=== PATIENT | female | born 1945 | race Caucasian/White ===

== ENCOUNTER 2017-01-13 05:38 | Inpatient (IN) | payer MEDICARE ==
[2017-01-13] VITALS (9 sets, daily range): BP systolic 94–177; BP diastolic 49–76
[~2017-01-13] VITALS: Ht 154.9 cm; Wt 61.7 kg
[~2017-01-13 05:38] MED LIST: ASPI81TA2 PO; BUDE10.2 IH; CETI10TA22 PO; FLUT1DIS3 IH; GUAI12003 PO; IPRA3AMP23 IH; IPRA4AER IH; ISOS60TA2 PO; LEVO500T8 PO; LOSA100T6 PO; METO-269 PO; METO25TA4 PO; NITR0.4T SL; OMEG1CAP16 PO; ONDA-35 PO; PRED-220 PO; ROFL500T PO; SENN8.8S4 PO; SIMV40TA3 PO; ZOLP10TA4 PO
[2017-01-13] MEDS ORDERED: TOBRAMYCIN PER PHARMACY MC PRN (05:45)
[2017-01-13] MEDS ORDERED: PIP/TAZO PER PHARMACY MC PRN (05:45)
[2017-01-13] MEDS ORDERED: PIPERACILLIN/TAZOBACTAM 3.375 GM in IV NORMAL SALINE 50ML 50 ML IV ONE (06:00)
[2017-01-13] MEDS ORDERED: methylPREDNISolone SOD SUCC PF 125 MG/2 ML VIAL. IV ONE (06:00)
[2017-01-13] MEDS ORDERED: ACETAMINOPHEN 500 MG TABLET PO ONE (06:00)
[2017-01-13] MEDS ORDERED: ONDANSETRON PF 4 MG/2 ML VIAL. IV ONE (06:00)
[2017-01-13] MEDS ORDERED: ADENOSINE 6 MG/2 ML VIAL IV ONE (06:00)
[2017-01-13] MEDS ORDERED: KETOROLAC 15 MG/ML VIAL. IV ONE (06:00)
[2017-01-13] MEDS ORDERED: IV NORMAL SALINE 1000ML BAG 1,000 ML IV SCH (06:06)
[2017-01-13 06:14] LABS: BASO % 0 % (0-3); EOS % 0 % (0-3); HEMATOCRIT 38.1 % (36.0-47.0); HEMOGLOBIN 12.4 g/dL (12.0-15.5); LYMPH # 1.4 x10^3/uL (1.0-4.8); LYMPH % 8 % (24-48); MEAN CORPUSCULAR HEMOGLOBIN 28 pg (25-35); MEAN CORPUSCULAR HGB CONC 33 g/dL (31-37); MEAN CORPUSCULAR VOLUME 86 fL (79-100); MONO % 14 % (0-9); NEUT % 77 % (31-73); PLATELET COUNT 382 x10^3/uL (140-400); RED BLOOD COUNT 4.42 x10^6/uL (3.50-5.40); RED CELL DISTRIBUTION WIDTH 14.6 % (11.5-14.5); WHITE BLOOD COUNT 16.9 x10^3/uL (4.0-11.0)
[2017-01-13] MEDS ORDERED: MORPHINE SULFATE 2 MG/ML DISP.SYRIN. IV PRN (06:15)
[2017-01-13] MEDS ORDERED: ACETAMINOPHEN 325 MG TABLET. PO PRN (06:15)
[2017-01-13] MEDS ORDERED: ONDANSETRON PF 4 MG/2 ML VIAL. IV PRN (06:15)
--- NOTE | 2017-01-13 06:18 | PHYS DOC ---
Past Medical History Past Medical History: CHF, COPD, High Cholesterol, Hypertension Past Surgical History: No Surgical History Alcohol Use: Occasionally Drug Use: None Adult General Chief Complaint Chief Complaint: SHORTNESS OF BREATH HPI HPI History and physical exam are certainly limited secondary to the patient in respiratory distress and placed immediately on BiPAP upon arrival to the ER. Patient is a 71 year old female with history significant for COPD presents to the ER today complaining of shortness of breath as been progressing over the last 24-48 hours. Patient reports she's had tactile fevers and diaphoresis. Patient reports she's been coughing yellow to green productive sputum 1-2 days. Patient reports that she took some prednisone and some old antibiotics at home. Patient has any nausea or vomiting. Patient has any diarrhea. Patient denies any abdominal pain. Patient complains of pleuritic chest pain with inspiration with cough.Patient arrived by EMS on 100% nonrebreather. Patient's pulse ox quickly deteriorated into the low 80s(83-86%) when the oxygen was removed briefly. Patient was initially placed on BiPAP to assist with her respiratory failure. Patient is extremity, warm to touch, febrile to 101.7, tachypnea, unable to speak in full sentences. Patient is sitting in tripod position despite being on BiPAP.Patient's chest x-ray did not show any discrete infiltrate however there is a questionable early pneumonia left lower lobe. Influenza test was sent on patient. Patient's physical exam was significant for diffuse inspiratory and expiratory wheezing with diminished breath sounds in the bases. Patient's heart rate is tachycardic to 160-180. Patient's hospital course was significant for being placed on BiPAP upon arrival. Patient's chest x-ray was obtained which showed a possible left lower lobe infiltrate. Patient's labs were drawn and sent including blood cultures, influenza test, CBC, CMP, and troponin. A blood gas was also ordered. Patient was started empirically on antibiotics to cover for pneumonia. Patient was given Solu-Medrol 125 IV. Patient's heart rate was approximately 170 upon arrival to the ER and was given adenosine 6 mg and adenosine 12 mg without any resolution in her tachycardia. Patient's heart rate did slow down briefly and there were no flutter waves identified. I believe the patient's tachycardia is most likely secondary to sinus tachycardia secondary to COPD with respiratory failure, respiratory distress, fever, anxiety, and multiple doses of albuterol that she received. Patient was given Tylenol and an order of Toradol was ordered to assist with breathing down her heart rate. Patient was started on saline solution and the ER again to assist with helping to bring down her heart rate. She'll be admitted to the ICU under the care of Dr. Everett. I discussed the case with Dr. Dawn. Critical care time 35 minutes reutilized treatment and management of this patient's care. Review of Systems Review of Systems Constitutional: fever Eyes: Denies change in visual acuity, redness, or eye pain [] Current Medications Current Medications Current Medications Medications (Trade) Dose Ordered Sig/Home Start Time Stop Time Status Last Admin Dose Admin Acetaminophen (Tylenol) 1,000 mg 1X ONCE 01/13/17 06:00 01/13/17 06:01 DC Adenosine (Adenocard) 6 mg 1X ONCE 01/13/17 06:00 01/13/17 06:01 DC 01/13/17 06:05 6 MG Ketorolac Tromethamine (Toradol) 15 mg 1X ONCE 01/13/17 06:00 01/13/17 06:01 DC Methylprednisolone Sodium Succinate 125 mg 125 mg 1X ONCE 01/13/17 06:00 01/13/17 06:01 DC Ondansetron HCl (Zofran) 4 mg 1X ONCE 01/13/17 06:00 01/13/17 06:01 DC Piperacillin Sod/ Tazobactam Sod (Zosyn Per Pharmacy) 1 each PRN DAILY PRN 01/13/17 05:45 Piperacillin Sod/ Tazobactam Sod/ Sodium Chloride (Zosyn/Iv Sodium Chloride 0.9% 50ml) 50 ml @ 100 mls/hr 1X ONCE 01/13/17 06:00 01/13/17 06:29 Tobramycin Sulfate (Nebcin Per Pharmacy) 1 each PRN DAILY PRN 01/13/17 05:45 Vancomycin HCl (Vanco Per Pharmacy) 1 each PRN DAILY PRN 01/13/17 05:45 Vancomycin HCl 1.5 gm/Sodium Chloride 500 ml @ 250 mls/hr 1X ONCE 01/13/17 06:30 01/13/17 08:29 Allergies Allergies Allergies Coded Allergies Type Severity Reaction Last Updated Verified No Known Drug Allergies 02/17/16 No Physical Exam Physical Exam Constitutional: Well developed, well nourished severe respiratory distress. HENT: Normocephalic, atraumatic, bilateral external ears normal, oropharynx moist, no oral exudates, nose normal. [] Eyes: PERRLA, EOMI, conjunctiva normal, no discharge. [] Neck: Normal range of motion, no tenderness, supple, no stridor. [] Cardiovascular: Regular and tachycardic to 170. Lungs & Thorax: Diffuse inspiratory and expiratory wheezing. Using accessory muscles. No nasal flaring. Tripod position. Abdomen: Bowel sounds normal, soft, no tenderness, no masses, no pulsatile masses. [] Skin: Warm, dry, no erythema, no rash. [] Back: No tenderness, no CVA tenderness. [] Extremities: No tenderness, no cyanosis, no clubbing, ROM intact, no edema. [] Neurologic: Alert and oriented X 3, normal motor function, normal sensory function, no focal deficits noted. [] Psychologic: Affect normal, judgement normal, mood normal. [] Current Patient Data Vital Signs Vital Signs Date Time Temp Pulse Resp B/P Pulse Ox O2 Delivery O2 Flow Rate FiO2 01/13/17 05:54 95 BiPAP/CPAP EKG EKG EKG reveals sinus tach at 170. No STEMI. [] Radiology/Procedures Radiology/Procedures [] Course & Med Decision Making Course & Med Decision Making Pertinent Labs and Imaging studies reviewed. (See chart for details) [] Dragon Disclaimer Dragon Disclaimer This electronic medical record was generated, in whole or in part, using a voice recognition dictation system. Departure Departure Impression: Primary Impression: Acute respiratory distress Additional Impressions: COPD exacerbation Pneumonia Sepsis Disposition: 09 ADMITTED INPATIENT Admitting Physician: Helen Welsh Condition: CRITICAL Referrals: HELEN WELSH MD (PCP) Problem Qualifiers FRED FRANCISCO MD Jan 13, 2017 06:18
[2017-01-13] MEDS ORDERED: VANCOMYCIN 1.5 GM in IV NORMAL SALINE 500ML BAG 500 ML IV ONE (06:30)
[2017-01-13 06:51] LABS: ALBUMIN 3.3 g/dL (3.4-5.0); ALBUMIN/GLOBULIN RATIO 0.8 (1.0-1.7); CALCIUM 9.2 mg/dL (8.5-10.1); CREATININE 0.9 mg/dL (0.6-1.0); GFR 62.1; POTASSIUM 3.6 mmol/L (3.5-5.1); TOTAL BILIRUBIN 0.3 mg/dL (0.2-1.0); TOTAL PROTEIN 7.5 g/dL (6.4-8.2)
--- NOTE | 2017-01-13 07:10 | ACF ---
Admit Criteria Forms Admit Criteria Forms Admit Criteria Forms RESPIRATORY FAILURE GRG Clinical Indications for Admission to Inpatient Care (Place 'X' for any and all applicable criteria): Hospital admission is needed for appropriate care of the patient because of acute respiratory failure or insufficiency as indicated by ANY ONE of the following(1)(2)(3)(4)(5)(6)(7)(8): [X]I. Mechanical ventilation needed (acute invasive or noninvasive) [ ]II. Severe ventilation deficit as indicated by ANY ONE of the following (9) [ ]a) Respiratory acidosis (pH less than 7.32 and partial pressure of carbon dioxide greater than 40 mm Hg (5.3 kPa)) [ ]b) Partial pressure of carbon dioxide greater than 44 mm Hg (5.9 kPa ) (new) [ ]c) Airflow measurements less than 25% of predicted (eg, peak expiratory flow rate less than 100 L/minute) [ ]d) Forced vital capacity less than 15 mL/kg of ideal body weight, or 50% decrease in vital capacity from baseline [ ]III. Noncardiac pulmonary edema not resolving with rapid emergency treatment (8) [ ]IV. Severe respiratory distress as indicated by ANY ONE of the following: [ ]a) Severe tachypnea (respiratory rate greater than 30, greater than 45 for 6-month-old, greater than 60 for ) [ ]b) Severe hypoxemia (partial pressure of oxygen less than 50 mm Hg ( 6.7 kPa) on greater than 50% oxygen or partial pressure of oxygen to FIO2 ratio less than 200) [ ]c) Mental status deterioration from respiratory disease [ ]V. Airway obstruction or inadequate protection [A](10)(11) The original [employer] content created by [employer] has been revised. The portions of the content which have been revised are identified through the use of italic text or in bold, and [employer] has neither reviewed nor approved the modified material. All other unmodified content is copyright [employer]. Please see references footnoted in the original [employer] edition 2016 CARO STEWART Jan 13, 2017 07:10
[2017-01-13 07:22] LABS: OBC FLU VALID
[2017-01-13 07:30] LABS: HCO3 ABG 20 mmol/L (21-28); PCO2 ABG 32 mmHg (35-46); PH ABG 7.42 (7.35-7.45); PO2 ABG 71 mmHg (65-108); SAT O2 ABG 94 % (92-99)
--- NOTE | 2017-01-13 07:31 | RAD ---
Examination: Single portable chest History: History of cough, shortness of breath. Comparison: 11/15/2016 Findings: The cardiomediastinal silhouette grossly appears unremarkable. Mild prominence of bilateral interstitial lung markings identified likely mild congestive disease. Linear atelectasis identified in the bilateral apical lung regions. Impression: Mild prominent appearing bilateral interstitial lung markings probably mild congestive changes.
[2017-01-13 07:38] LABS: FIO2 ABG 35
[2017-01-13 07:40] LABS: PLT ESTIMATE ADEQUATE (ADEQUATE); POLYCHROMASIA SLIGHT
[2017-01-13] MEDS ORDERED: IPRATRPIUM/ALBUTEROL 0.5/2.5MG 3 ML NEBU. NEB SCH (08:00)
[2017-01-13] MEDS ORDERED: GUAI-42 PO (08:12)
[2017-01-13] MEDS ORDERED: OMEG1CAP6 PO (08:12)
[2017-01-13] MEDS ORDERED: CLAR500T PO (08:12)
[2017-01-13] MEDS ORDERED: NITROGLYCERIN SUBLINGUAL 0.4 MG BOTTLE OF 25. SL PRN (08:45)
[2017-01-13] MEDS ORDERED: FAMOTIDINE 20 MG/2 ML VIAL IVP SCH ×2 (09:00→09:30)
[2017-01-13] MEDS: IPRATRPIUM/ALBUTEROL 0.5/2.5MG 3 ML NEBU. IH SCH ×4 (09:00→19:34)
--- NOTE | 2017-01-13 09:05 | PDOC ---
Provider Note Provider Note [id number] TOM OCONNOR MD Jan 13, 2017 09:05
[2017-01-13] MEDS: VANCOMYCIN PER PHARMACY MC PRN (09:15)
[2017-01-13] MEDS: methylPREDNISolone SOD SUCC PF 125 MG/2 ML VIAL. IV SCH ×2 (09:26→21:40)
[2017-01-13] MEDS: METOPROLOL TART IMMED RELEASE 25 MG TABLET PO SCH ×2 (09:26→21:38)
[2017-01-13] MEDS: ISOSORBIDE MONONITRATE ER 60 MG TAB.ER.24H PO SCH (09:27)
[2017-01-13 09:40] LABS: BILIRUBIN,URINE NEGATIVE (NEG); GLUCOSE,URINE NEGATIVE (NEG); NITRITE,URINE NEGATIVE (NEG); PROTEIN,URINE 30 mg/dL (NEG-TRACE); UROBILINOGEN,URINE 0.2 mg/dL (0.2 mg/dL)
--- NOTE | 2017-01-13 09:40 | EKG ---
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
[2017-01-13 09:53] LABS: BACTERIA,URINE MANY /HPF (0-FEW); SQUAMOUS EPITHELIAL CELL,UR MOD /LPF
[2017-01-13] MEDS: PIPERACILLIN/TAZOBACTAM 3.375 GM in IV NORMAL SALINE 50ML 50 ML IV SCH ×2 (11:29→17:40)
--- NOTE | 2017-01-13 12:19 | HP ---
ADMIT DATE: CHIEF COMPLAINT: Shortness of breath. HISTORY OF PRESENT ILLNESS: A 71-year-old white female with history of COPD who was in the hospital 2 months ago for exacerbation and recently has been coughing up green sputum and more short of breath and came to the ER. She was on BiPAP recently but blood gases did not demonstrate respiratory acidosis. She is feeling a little better at this time. She denies antibiotic use recently. PAST MEDICAL HISTORY: Well documented in the old record. Echocardiogram 1 year ago, which showed a normal ejection fraction with pulmonary hypertension. Multiple meds listed per the chart. Vaccinations up-to-date to her knowledge. SOCIAL HISTORY: Still smokes cigarettes, and lives at home. Nondrinker, nonsmoker. FAMILY HISTORY: Unremarkable. REVIEW OF SYSTEMS: No other complaints. OBJECTIVE: ENT: All within normal limits. Mild proptosis is noted. NECK: Revealed no carotid bruits, thyromegaly or masses. LUNGS: Decreased breath sounds with inspiratory crackles bilaterally and a few wheezes. CARDIOVASCULAR: Tachycardia, rate about 140, regular, appears to be sinus tachycardia per monitor. ABDOMEN: Soft, benign and nontender. EXTREMITIES: 2+ clubbing, no edema. No joint or skin lesions. Distal pulses are mildly diminished. NEUROLOGIC: Physiologic. ASSESSMENT: 1. Acute exacerbation what appears to be moderately severe chronic obstructive pulmonary disease. 2. Chronic tobacco abuse. 3. Tachycardia, suspect multifactorial. Need to check TSH. PLAN: We will cover for pseudomonas and MRSA with vancomycin and Zosyn for now. Pulmonary consultation as she sees Dr. Smith as an outpatient, IV steroids and Pepcid for prophylaxis. TOM OCONNOR MD DR: HUBER/lazaro JOB#: [id number] / [id number]
[2017-01-13] MEDS ORDERED: FUROSEMIDE 40 MG/4 ML VIAL IVP ONE (12:30)
--- NOTE | 2017-01-13 12:30 | PDOC ---
PULMONARY PROGRESS NOTES Vitals Vital Signs Date Time Temp Pulse Resp B/P Pulse Ox O2 Delivery O2 Flow Rate FiO2 01/13/17 11:13 96 Nasal Cannula 4.0 01/13/17 11:00 109 23 125/67 01/13/17 07:45 99.8 99.8 General: Alert HEENT: Other Lungs: Clear Cardiovascular: S1, S2 Abdomen: Soft, Non-tender Extremities: No Edema Labs Laboratory Tests Test 01/13/17 05:40 01/13/17 05:45 01/13/17 06:57 01/13/17 08:00 White Blood Count 16.9x10^3/uL (4.0-11.0) Red Blood Count 4.42x10^6/uL (3.50-5.40) Hemoglobin 12.4g/dL (12.0-15.5) Hematocrit 38.1% (36.0-47.0) Mean Corpuscular Volume 86fL (79-100) Mean Corpuscular Hemoglobin 28pg (25-35) Mean Corpuscular Hemoglobin Concent 33g/dL (31-37) Red Cell Distribution Width 14.6% (11.5-14.5) Platelet Count 382x10^3/uL (140-400) Neutrophils (%) (Auto) 77% (31-73) Lymphocytes (%) (Auto) 8% (24-48) Monocytes (%) (Auto) 14% (0-9) Eosinophils (%) (Auto) 0% (0-3) Basophils (%) (Auto) 0% (0-3) Neutrophils # (Auto) 13.1x10^3uL (1.8-7.7) Lymphocytes # (Auto) 1.4x10^3/uL (1.0-4.8) Monocytes # (Auto) 2.4x10^3/uL (0.0-1.1) Eosinophils # (Auto) 0.0x10^3/uL (0.0-0.7) Basophils # (Auto) 0.0x10^3/uL (0.0-0.2) Segmented Neutrophils % 59% (35-66) Band Neutrophils % 20% (0-9) Lymphocytes % 7% (24-48) Monocytes % 13% (0-10) Metamyelocytes % 1% (0-0) Platelet Estimate Adequate (ADEQUATE) Polychromasia Slight Sodium Level 140mmol/L (136-145) Potassium Level 3.6mmol/L (3.5-5.1) Chloride Level 103mmol/L (98-107) Carbon Dioxide Level 23mmol/L (21-32) Anion Gap 14 (6-14) Blood Urea Nitrogen 14mg/dL (7-20) Creatinine 0.9mg/dL (0.6-1.0) Estimated GFR (Cockcroft-Gault) 62.1 BUN/Creatinine Ratio 16 (6-20) Glucose Level 153mg/dL (70-99) Lactic Acid Level 2.0mmol/L (0.4-2.0) 1.9mmol/L (0.4-2.0) Calcium Level 9.2mg/dL (8.5-10.1) Total Bilirubin 0.3mg/dL (0.2-1.0) Aspartate Amino Transf (AST/SGOT) 35U/L (15-37) Alanine Aminotransferase (ALT/SGPT) 35U/L (14-59) Alkaline Phosphatase 75U/L (46-116) Troponin I Quantitative < 0.017ng/mL (0.000-0.055) ID-Wqs-W-Type Natriuretic Peptide 414pg/mL (0-124) Total Protein 7.5g/dL (6.4-8.2) Albumin 3.3g/dL (3.4-5.0) Albumin/Globulin Ratio 0.8 (1.0-1.7) Thyroid Stimulating Hormone (TSH) 0.465uIU/mL (0.358-3.74) O2 Saturation 94% (92-99) Arterial Blood pH 7.42 (7.35-7.45) Arterial Blood pCO2 at Patient Temp 32mmHg (35-46) Arterial Blood pO2 at Patient Temp 71mmHg (65-108) Arterial Blood HCO3 20mmol/L (21-28) Arterial Blood Base Excess -4mmol/L (-3-3) FiO2 35 Influenza Type A Antigen Negative (NEGATIVE) Influenza Type B Antigen Negative (NEGATIVE) Test 01/13/17 09:00 Urine Collection Type Unknown Urine Color Yellow Urine Clarity Clear Urine pH 6.0 Urine Specific [place] 1.015 Urine Protein 30mg/dL (NEG-TRACE) Urine Glucose (UA) Negativemg/dL (NEG) Urine Ketones (Stick) Negativemg/dL (NEG) Urine Blood Small (NEG) Urine Nitrite Negative (NEG) Urine Bilirubin Negative (NEG) Urine Urobilinogen Dipstick 0.2mg/dL (0.2 mg/dL) Urine Leukocyte Esterase Negative (NEG) Urine RBC 6-10/HPF (0-2) Urine WBC 1-4/HPF (0-4) Urine Squamous Epithelial Cells Mod/LPF Urine Bacteria Many/HPF (0-FEW) Urine Mucus Slight/LPF Laboratory Tests Test 01/13/17 05:40 01/13/17 05:45 01/13/17 06:57 01/13/17 08:00 White Blood Count 16.9x10^3/uL (4.0-11.0) Red Blood Count 4.42x10^6/uL (3.50-5.40) Hemoglobin 12.4g/dL (12.0-15.5) Hematocrit 38.1% (36.0-47.0) Mean Corpuscular Volume 86fL (79-100) Mean Corpuscular Hemoglobin 28pg (25-35) Mean Corpuscular Hemoglobin Concent 33g/dL (31-37) Red Cell Distribution Width 14.6% (11.5-14.5) Platelet Count 382x10^3/uL (140-400) Neutrophils (%) (Auto) 77% (31-73) Lymphocytes (%) (Auto) 8% (24-48) Monocytes (%) (Auto) 14% (0-9) Eosinophils (%) (Auto) 0% (0-3) Basophils (%) (Auto) 0% (0-3) Neutrophils # (Auto) 13.1x10^3uL (1.8-7.7) Lymphocytes # (Auto) 1.4x10^3/uL (1.0-4.8) Monocytes # (Auto) 2.4x10^3/uL (0.0-1.1) Eosinophils # (Auto) 0.0x10^3/uL (0.0-0.7) Basophils # (Auto) 0.0x10^3/uL (0.0-0.2) Segmented Neutrophils % 59% (35-66) Band Neutrophils % 20% (0-9) Lymphocytes % 7% (24-48) Monocytes % 13% (0-10) Metamyelocytes % 1% (0-0) Platelet Estimate Adequate (ADEQUATE) Polychromasia Slight Sodium Level 140mmol/L (136-145) Potassium Level 3.6mmol/L (3.5-5.1) Chloride Level 103mmol/L (98-107) Carbon Dioxide Level 23mmol/L (21-32) Anion Gap 14 (6-14) Blood Urea Nitrogen 14mg/dL (7-20) Creatinine 0.9mg/dL (0.6-1.0) Estimated GFR (Cockcroft-Gault) 62.1 BUN/Creatinine Ratio 16 (6-20) Glucose Level 153mg/dL (70-99) Lactic Acid Level 2.0mmol/L (0.4-2.0) 1.9mmol/L (0.4-2.0) Calcium Level 9.2mg/dL (8.5-10.1) Total Bilirubin 0.3mg/dL (0.2-1.0) Aspartate Amino Transf (AST/SGOT) 35U/L (15-37) Alanine Aminotransferase (ALT/SGPT) 35U/L (14-59) Alkaline Phosphatase 75U/L (46-116) Troponin I Quantitative < 0.017ng/mL (0.000-0.055) VK-Ria-K-Type Natriuretic Peptide 414pg/mL (0-124) Total Protein 7.5g/dL (6.4-8.2) Albumin 3.3g/dL (3.4-5.0) Albumin/Globulin Ratio 0.8 (1.0-1.7) Thyroid Stimulating Hormone (TSH) 0.465uIU/mL (0.358-3.74) O2 Saturation 94% (92-99) Arterial Blood pH 7.42 (7.35-7.45) Arterial Blood pCO2 at Patient Temp 32mmHg (35-46) Arterial Blood pO2 at Patient Temp 71mmHg (65-108) Arterial Blood HCO3 20mmol/L (21-28) Arterial Blood Base Excess -4mmol/L (-3-3) FiO2 35 Influenza Type A Antigen Negative (NEGATIVE) Influenza Type B Antigen Negative (NEGATIVE) Test 01/13/17 09:00 Urine Collection Type Unknown Urine Color Yellow Urine Clarity Clear Urine pH 6.0 Urine Specific [place] 1.015 Urine Protein 30mg/dL (NEG-TRACE) Urine Glucose (UA) Negativemg/dL (NEG) Urine Ketones (Stick) Negativemg/dL (NEG) Urine Blood Small (NEG) Urine Nitrite Negative (NEG) Urine Bilirubin Negative (NEG) Urine Urobilinogen Dipstick 0.2mg/dL (0.2 mg/dL) Urine Leukocyte Esterase Negative (NEG) Urine RBC 6-10/HPF (0-2) Urine WBC 1-4/HPF (0-4) Urine Squamous Epithelial Cells Mod/LPF Urine Bacteria Many/HPF (0-FEW) Urine Mucus Slight/LPF Medications Active Scripts Medications Dose Route/Sig Days Date Category Dose Instructions Fish Oil 1,000 Mg Capsule (Dickens-3 Fatty Acids/Fish Oil) 1 Each Capsule 2 Each PO DAILY 01/13/17 Reported Clarithromycin 500 Mg Tablet 1 Tab PO BID 01/13/17 Reported Mucinex Dm Er 600-30 Mg Tablet (Guaifenesin/Dextromethorphan) 1 Each Tab.er.12h 2 Tab PO PRN Q12HRS 01/13/17 Reported Ondansetron Hcl 4 Mg Tablet 1 Tab PO PRN Q4HRS 11/15/16 Reported Metoprolol Tartrate 25 Mg Tablet 1 Tab PO BID 11/15/16 Reported Senna (Sennosides) 8.8 Mg/5 Ml Syrup 8.8 Mg PO 11/15/16 Reported Prednisone 10 Mg Tablet 10 Mg PO DAILY 11/15/16 Reported taper started 01/11 at 40 mg/day Zolpidem Tartrate 10 Mg Tablet 1 Tab PO QHS 02/17/16 Reported Fish Oil 1,000 Mg Softgel (Dickens-3 Fatty Acids/Fish Oil) 1 Each Capsule 1 Each PO DAILY 02/17/16 Reported Symbicort 160-4.5 Mcg Inhaler (Budesonide/Formoterol Fumarate) 10.2 Gm Hfa.aer.ad 2 Puff IH TID 02/17/16 Reported Zyrtec (Cetirizine Hcl) 10 Mg Tablet 1 Tab PO DAILY 02/17/16 Reported Daliresp (Roflumilast) 500 Mcg Tablet 1 Tab PO DAILY 02/17/16 Reported Isosorbide Mononitrate Er (Isosorbide Mononitrate) 60 Mg Tab.er.24h 1 Tab PO DAILY 02/17/16 Reported Nitrostat (Nitroglycerin) 0.4 Mg Tab.subl 0.4 Mg SL PRN Q5MIN PRN 11/20/13 Reported Duoneb 0.5 Mg-3 Mg/3 Ml Soln (Ipratropium/Albuterol Sulfate) 3 Ml Ampul.neb 3 Ml IH QID 11/20/13 Reported Advair 250-50 Diskus (Fluticasone/Salmeterol) 1 Each Disk.w.dev 1 Each IH BID 11/20/13 Reported Aspirin 81 Mg Tab.chew 81 Mg PO DAILY 11/20/13 Reported Simvastatin 40 Mg Tablet 40 Mg PO HS 11/20/13 Reported Combivent Respimat Inhal (Ipratropium/Albuterol Sulfate) 4 Gm Aer.w.adap 4 Gm IH QID 11/20/13 Reported Impression . FULL CONSULT DICTATED ACUTE RESP FAILURE MULTIFACTORIAL POSSIBLE ACUTE DIASTOLIC HF POSSIBLE ATYPICAL PNEUMONIA, PT WITH FEVER WILL CHECK PROCALCITONIN LASIX CONSULT CARD FOLLOW UP CXR IN GINGER FINNEY MD Jan 13, 2017 12:30
[2017-01-13] MEDS: DOXYCYCLINE HYCLATE 100 MG in IV DEXTROSE 5% 100 ML IV SCH ×2 (12:45→21:41)
[2017-01-13] MEDS: ENOXAPARIN 40 MG/0.4 ML DISP.SYRIN. SQ SCH (13:52)
[2017-01-14] MEDS: PIPERACILLIN/TAZOBACTAM 3.375 GM in IV NORMAL SALINE 50ML 50 ML IV SCH ×4 (01:31→18:00)
[2017-01-14] MEDS: ALBUTEROL SULFATE 2.5 MG/3 ML NEBU. NEB PRN (05:22)
--- NOTE | 2017-01-14 06:55 | CONS ---
DATE OF CONSULTATION: 01/13/2017 ATTENDING PHYSICIAN: Dr. Joshua Dawn CONSULTING PHYSICIAN: Ginger Farrell MD. REASON FOR CONSULTATION: The patient seen in pulmonary consultation at the request of Dr. Dawn for acute on chronic respiratory failure requiring noninvasive ventilation with BiPAP. HISTORY OF PRESENT ILLNESS: The patient is a 71-year-old with a history of COPD, coronary artery disease with previous multiple acute exacerbations, presented with a 2-3 day history of increasing shortness of breath, cough productive of discolored sputum, subjective fever, no nausea, vomiting. The patient presented to the Emergency Room, had low saturations in the low 80s. She was in significant respiratory distress, tachypneic. She had a fever of 101.7. She was placed on BiPAP, transferred to the intensive care unit. Since the admission to the intensive care unit, she has actually improved. She is currently back on nasal cannula oxygen. I review her chest x-ray, which revealed prominent increased lung markings compatible with CHF, possible atypical pneumonia. The patient has had a previous echocardiogram back in 11/2016, which revealed ejection fraction of 70%. There was a prior echocardiogram in 02/2015 with ejection fraction of 55%. The patient was also experiencing paroxysmal nocturnal dyspnea, no pedal edema. She denied any anginal type of symptoms over the past week. PAST MEDICAL HISTORY: 1. COPD, tobacco dependence, chronic respiratory failure on 2 liters of oxygen supplementation. 2. Diabetes. 3. Coronary artery disease. 4. Respiratory failure secondary to influenza dating back to 2013. PAST SURGICAL HISTORY: None. FAMILY HISTORY: Brother with COPD. CURRENT MEDICATIONS: List was reviewed. Please see the MRAD. HOME MEDICATIONS: List likewise reviewed. Please see the MRAD. ALLERGIES: No known drug allergies. REVIEW OF SYSTEMS: As indicated above, otherwise the 10-point system was reviewed and negative. PHYSICAL EXAMINATION: GENERAL: The patient was in no significant respiratory distress. VITAL SIGNS: T-max was 101.9. HEENT: Eyes, the sclerae were nonicteric. NECK: Jugular venous distention was not elevated. No lymphadenopathy. CHEST: Full expansion. LUNGS: Expiratory wheeze with fine crackles. CARDIOVASCULAR: Regular rate and rhythm with S1, S2, no S3. ABDOMEN: Soft, nontender, nondistended. EXTREMITIES: No clubbing, cyanosis or edema. LABORATORY DATA: Serology for influenza was negative. White count was elevated. Hemoglobin and hematocrit were noted. Arterial blood gas was noted. BNP was elevated. Troponin was normal. Lactic acid level was not elevated. IMPRESSION: 1. Acute on chronic respiratory failure, multifactorial, suspect secondary to acute diastolic heart failure and acute nonspecific bronchitis. 2. Possible acute diastolic heart failure. 3. Abnormal x-ray compatible with bilateral pulmonary infiltrates compatible with acute pulmonary edema, other possibilities include atypical pneumonia i.e. mycoplasma. 4. Tobacco dependence. 5. Coronary artery disease. 6. Diabetes. 7. Fever. PLAN: 1. Recommend discontinuing IV fluids. 2. Lasix x 1. 3. Cover for both gram-positive and gram-negative organisms along with atypical coverage with doxycycline. 4. Obtain blood cultures if fever persists. 5. Steroids. 6. Monitor blood sugars. 7. DVT and GI prophylaxis. 8. Consult cardiology, noticed the patient received adenosine x 1 in the Emergency Department. I do appreciate the privilege in sharing in the patient's care. GINGER FARRELL MD DR: MANDA/lazaro JOB#: [id number] / [id number]
[2017-01-14 07:00] VITALS: BP 108/85
[2017-01-14] MEDS ORDERED: VANCOMYCIN 1 GM in IV NORMAL SALINE 250ML 250 ML IV SCH (07:00)
[2017-01-14] MEDS: IPRATRPIUM/ALBUTEROL 0.5/2.5MG 3 ML NEBU. IH SCH ×5 (07:49→19:40)
[2017-01-14] MEDS ORDERED: ALBUTEROL SULFATE 2.5 MG/3 ML NEBU. NEB PRN (08:00)
--- NOTE | 2017-01-14 08:01 | PDOC ---
Provider Note Provider Note feels better than on admit- less sputum, no new sxs- afeb, difusse wheezes/ prolged exp but better air movement- hr slower now- tsh ok, gram + cocci in sputum- cont vanc/zosyn to cover mrsa/pneumococcus for now, steroids TOM OCONNOR MD Jan 14, 2017 08:01
--- NOTE | 2017-01-14 08:27 | RAD ---
EXAM: Chest one view. HISTORY: Respiratory failure. COMPARISON: 01/13/2017. FINDINGS: A frontal view of the chest is obtained. Hyperinflation is consistent with chronic obstructive pulmonary disease. Mild interstitial opacities in the left greater than right bases are stable and may represent scarring. There is no pneumothorax or pleural effusion. The heart is mildly enlarged. There are atherosclerotic calcifications of the aorta. IMPRESSION: 1. Hyperinflation suggests chronic obstructive pulmonary disease. Mild basilar scarring versus atypical pneumonia. 2. Mild cardiomegaly.
[2017-01-14] MEDS ORDERED: ROFLUMILAST 500 MCG TABLET. PO SCH (09:00)
[2017-01-14] MEDS: GUAIFENESIN DM 600/30MG TAB.ER.12H. PO SCH ×2 (09:00→20:42)
[2017-01-14] MEDS: FAMOTIDINE 20 MG TABLET. PO SCH (09:00)
[2017-01-14] MEDS: ROFLUMILAST 500 MCG TABLET. PO SCH (09:00)
[2017-01-14] MEDS: ISOSORBIDE MONONITRATE ER 60 MG TAB.ER.24H PO SCH (09:12)
[2017-01-14] MEDS: methylPREDNISolone SOD SUCC PF 125 MG/2 ML VIAL. IV SCH ×2 (09:12→20:43)
[2017-01-14] MEDS: METOPROLOL TART IMMED RELEASE 25 MG TABLET PO SCH (09:12)
--- NOTE | 2017-01-14 09:57 | PDOC2 ---
ANATOLY STEINBERG TANK TESTER 01/14/17 0957: CARDIAC CONSULT DATE OF CONSULT Date of Consult DATE: 01/14/17 TIME: 09:46 REASON FOR CONSULT Reason for Consult: Possible New Heart Failure REFERRING PHYSICIAN Referring Physician: Dr. Rubin SOURCE Source: Chart review, Patient HISTORY OF PRESENT ILLNESS HISTORY OF PRESENT ILLNESS This is a 71 yo female, with a history on COPD and chronic tobaccoism, who presented with complaints of shortness of breath. Was recently hospitalized for acute respiratory failure/AE COPD. Breathing has not fully recovered since. Has been SOA at baseline. Patient reports onset of head cold/congestion approximately 1 week ago. Cough productive of green sputum with subjective fevers. SOA progressively worsened over the last couple of days. Associated with orthopnea. No LE edema. Reports central chest pain. Describes as sharp in nature. Radiates through to her back. Associated/worsened with coughing and deep breathing. Denies any dizziness, diaphoresis, or nausea/vomiting. Reports chronic tachycardia heart rate is "always fast". HR noted to be 160-180 upon arrival to ED; unresponsive to adenosine 6 and 12mg. Unfortunately, patient continues to smoke a ppd and is noncompliants with oxygen at home. Reports compliance with medications. PAST MEDICAL HISTORY Cardiovascular: HTN, Hyperlipidemia Pulmonary: COPD GI: GERD Heme/Onc: No pertinent hx Hepatobiliary: No pertinent hx Psych: No pertinent hx Musculoskeletal: Osteoarthritis Rheumatologic: No pertinent hx Infectious disease: No pertinent hx ENT: No pertinent hx Renal/: No pertinent hx Endocrine: No pertinent hx Dermatology: No pertinent hx PAST SURGICAL HISTORY Past Surgical History: Cataract Removal SOCIAL HISTORY Smoke: <1 pack per day ALCOHOL: none Drugs: None Lives: with Family CURRENT MEDICATIONS CURRENT MEDICATIONS Current Medications Medications (Trade) Dose Ordered Sig/Home Route PRN Reason Start Time Stop Time Status Last Admin Dose Admin Piperacillin Sod/ Tazobactam Sod 3.375 gm/Sodium Chloride 50 ml @ 100 mls/hr Q6HRS IV 01/13/17 12:00 01/14/17 05:29 Doxycycline Hyclate/Dextrose 100 ml @ 50 mls/hr Q12HR IV 01/13/17 13:00 01/13/17 21:41 Furosemide (Lasix) 40 mg 1X ONCE IVP 01/13/17 12:30 01/13/17 12:33 DC 01/13/17 12:44 Enoxaparin Sodium (Lovenox 40mg Syringe) 40 mg Q24H SQ 01/13/17 13:00 01/13/17 13:52 Albuterol Sulfate (Ventolin Neb Soln) 2.5 mg PRN Q4HRS PRN NEB SHORTNESS OF BREATH 01/13/17 13:15 01/14/17 05:22 ALLERGIES ALLERGIES: Coded Allergies: No Known Drug Allergies (Unverified , 02/17/16) ROS Review of System 14 point ROS conducted with pertinent positives noted above in [facility] PHYSICAL EXAM General: Alert, Oriented X3, Cooperative, mild distress HEENT: Mucous membr. moist/pink Lungs: Other (coarse lung sounds with bilateral exp wheezes) Heart: Normal S1, Normal S2, No murmurs, Other (tele: ST) Abdomen: Soft, No tenderness Extremities: No edema, Normal pulses Skin: No significant lesion Neuro: Normal speech, Sensation intact Psych/Mental Status: Mental status NL, Mood NL MUSCULOSKELETAL: Osteoarthritic changes both hands VITALS VITALS Vital Signs Date Time Temp Pulse Resp B/P Pulse Ox O2 Delivery O2 Flow Rate FiO2 01/14/17 09:12 119 108/85 01/14/17 07:50 91 Nasal Cannula 2.0 01/14/17 07:00 97.5 22 97.5 LABS Lab: Laboratory Tests Test 01/13/17 18:00 Troponin I Quantitative < 0.017ng/mL (0.000-0.055) ECHOCARDIOGRAM ECHOCARDIOGRAM DATE: 02/13/16 1506 <Conclusion> Left ventricle systolic function is normal. The Ejection Fraction is 55-60%. There is normal LV segmental wall motion. Transmitral Doppler flow pattern is Grade I-abnormal relaxation pattern. Trace tricuspid regurgitation. The PA pressure was estimated at 25 mmHg. There is no evidence of significant pericardial effusion. DATE: 11/15/16 1327 <Conclusion> Left ventricle systolic function is hyperdynamic. The Ejection Fraction is >70%. There is normal LV segmental wall motion. Limited echo only. STRESS TEST STRESS TEST Conclusion 1. Regadenoson cardioisotope stress test did not show any evidence of ischemia or infarct. 2. Normal left ventricular systolic function with ejection fraction calculated at >80%. 3. Low risk for cardiac events. DATE: 02/13/16 1143 ASSESSMENT/PLAN ASSESSMENT/PLAN 1. Mild NT Pro BNP elevation based upon age adjustment; is insignificant CXR with cardiomegaly; no significant fluid accumulation appears clinically compensated- Lasix PRN will obtain echo to assess LV function and chest CT 2. Acute on chronic respiratory failure with AE COPD multifactorial; per pulm 3. Hypertension well-controlled 4. Sinus Tachycardia likely secondary to AECOPD and acute respiratory failure TSH WNL. No BB with wheezing. Will start cardizem for rate control 5. Hyperlipidemia 11/15/16~ LDL 56 continue statin therapy 6. Leukocytosis,fevers 7. Tobaccoism cessation discussed/encouraged Problems: WON TENA MD 01/14/17 1547: CARDIAC CONSULT ALLERGIES ALLERGIES: Coded Allergies: No Known Drug Allergies (Unverified , 02/17/16) ASSESSMENT/PLAN ASSESSMENT/PLAN Patient seen and examined. Agree with SNAG GRINDER's assessment and plan. Clinical picture not consistent with congestive heart failure. 2-D echo showed normal LV systolic function. Continue current treatment for acute on chronic COPD exacerbation per pulmonary team. Thank you for your consultation. Problems: ANATOLY STEINBERG APRN Jan 14, 2017 09:57 WON TENA MD Jan 14, 2017 15:47
[2017-01-14 11:00] VITALS: BP 141/85
--- NOTE | 2017-01-14 11:55 | PDOC ---
PULMONARY PROGRESS NOTES Subjective mild cough Vitals Vital Signs Date Time Temp Pulse Resp B/P Pulse Ox O2 Delivery O2 Flow Rate FiO2 01/14/17 11:00 97.7 115 22 141/85 90 Nasal Cannula 2.0 97.7 General: Alert HEENT: Other Lungs: Other (decrease bs) Cardiovascular: S1, S2 Abdomen: Soft, Non-tender Extremities: No Edema Skin: Warm Labs Laboratory Tests Test 01/13/17 05:40 01/13/17 05:45 01/13/17 06:57 01/13/17 08:00 White Blood Count 16.9x10^3/uL (4.0-11.0) Red Blood Count 4.42x10^6/uL (3.50-5.40) Hemoglobin 12.4g/dL (12.0-15.5) Hematocrit 38.1% (36.0-47.0) Mean Corpuscular Volume 86fL (79-100) Mean Corpuscular Hemoglobin 28pg (25-35) Mean Corpuscular Hemoglobin Concent 33g/dL (31-37) Red Cell Distribution Width 14.6% (11.5-14.5) Platelet Count 382x10^3/uL (140-400) Neutrophils (%) (Auto) 77% (31-73) Lymphocytes (%) (Auto) 8% (24-48) Monocytes (%) (Auto) 14% (0-9) Eosinophils (%) (Auto) 0% (0-3) Basophils (%) (Auto) 0% (0-3) Neutrophils # (Auto) 13.1x10^3uL (1.8-7.7) Lymphocytes # (Auto) 1.4x10^3/uL (1.0-4.8) Monocytes # (Auto) 2.4x10^3/uL (0.0-1.1) Eosinophils # (Auto) 0.0x10^3/uL (0.0-0.7) Basophils # (Auto) 0.0x10^3/uL (0.0-0.2) Segmented Neutrophils % 59% (35-66) Band Neutrophils % 20% (0-9) Lymphocytes % 7% (24-48) Monocytes % 13% (0-10) Metamyelocytes % 1% (0-0) Platelet Estimate Adequate (ADEQUATE) Polychromasia Slight Sodium Level 140mmol/L (136-145) Potassium Level 3.6mmol/L (3.5-5.1) Chloride Level 103mmol/L (98-107) Carbon Dioxide Level 23mmol/L (21-32) Anion Gap 14 (6-14) Blood Urea Nitrogen 14mg/dL (7-20) Creatinine 0.9mg/dL (0.6-1.0) Estimated GFR (Cockcroft-Gault) 62.1 BUN/Creatinine Ratio 16 (6-20) Glucose Level 153mg/dL (70-99) Lactic Acid Level 2.0mmol/L (0.4-2.0) 1.9mmol/L (0.4-2.0) Calcium Level 9.2mg/dL (8.5-10.1) Total Bilirubin 0.3mg/dL (0.2-1.0) Aspartate Amino Transf (AST/SGOT) 35U/L (15-37) Alanine Aminotransferase (ALT/SGPT) 35U/L (14-59) Alkaline Phosphatase 75U/L (46-116) Troponin I Quantitative < 0.017ng/mL (0.000-0.055) EG-Kmj-W-Type Natriuretic Peptide 414pg/mL (0-124) Total Protein 7.5g/dL (6.4-8.2) Albumin 3.3g/dL (3.4-5.0) Albumin/Globulin Ratio 0.8 (1.0-1.7) Procalcitonin < 0.10ng/mL (0.00-0.10) Thyroid Stimulating Hormone (TSH) 0.465uIU/mL (0.358-3.74) O2 Saturation 94% (92-99) Arterial Blood pH 7.42 (7.35-7.45) Arterial Blood pCO2 at Patient Temp 32mmHg (35-46) Arterial Blood pO2 at Patient Temp 71mmHg (65-108) Arterial Blood HCO3 20mmol/L (21-28) Arterial Blood Base Excess -4mmol/L (-3-3) FiO2 35 Influenza Type A Antigen Negative (NEGATIVE) Influenza Type B Antigen Negative (NEGATIVE) Nasal Screen MRSA (PCR) Negative (Negative) Test 01/13/17 09:00 01/13/17 18:00 Urine Collection Type Unknown Urine Color Yellow Urine Clarity Clear Urine pH 6.0 Urine Specific [place] 1.015 Urine Protein 30mg/dL (NEG-TRACE) Urine Glucose (UA) Negativemg/dL (NEG) Urine Ketones (Stick) Negativemg/dL (NEG) Urine Blood Small (NEG) Urine Nitrite Negative (NEG) Urine Bilirubin Negative (NEG) Urine Urobilinogen Dipstick 0.2mg/dL (0.2 mg/dL) Urine Leukocyte Esterase Negative (NEG) Urine RBC 6-10/HPF (0-2) Urine WBC 1-4/HPF (0-4) Urine Squamous Epithelial Cells Mod/LPF Urine Bacteria Many/HPF (0-FEW) Urine Mucus Slight/LPF Troponin I Quantitative < 0.017ng/mL (0.000-0.055) Laboratory Tests Test 01/13/17 18:00 Troponin I Quantitative < 0.017ng/mL (0.000-0.055) Medications Active Scripts Medications Dose Route/Sig Days Date Category Dose Instructions Fish Oil 1,000 Mg Capsule ([place]-3 Fatty Acids/Fish Oil) 1 Each Capsule 2 Each PO DAILY 01/13/17 Reported Clarithromycin 500 Mg Tablet 1 Tab PO BID 01/13/17 Reported Mucinex Dm Er 600-30 Mg Tablet (Guaifenesin/Dextromethorphan) 1 Each Tab.er.12h 2 Tab PO PRN Q12HRS 01/13/17 Reported Ondansetron Hcl 4 Mg Tablet 1 Tab PO PRN Q4HRS 11/15/16 Reported Metoprolol Tartrate 25 Mg Tablet 1 Tab PO BID 11/15/16 Reported Senna (Sennosides) 8.8 Mg/5 Ml Syrup 8.8 Mg PO 11/15/16 Reported Prednisone 10 Mg Tablet 10 Mg PO DAILY 11/15/16 Reported taper started 01/11 at 40 mg/day Zolpidem Tartrate 10 Mg Tablet 1 Tab PO QHS 02/17/16 Reported Fish Oil 1,000 Mg Softgel ([place]-3 Fatty Acids/Fish Oil) 1 Each Capsule 1 Each PO DAILY 02/17/16 Reported Symbicort 160-4.5 Mcg Inhaler (Budesonide/Formoterol Fumarate) 10.2 Gm Hfa.aer.ad 2 Puff IH TID 02/17/16 Reported Zyrtec (Cetirizine Hcl) 10 Mg Tablet 1 Tab PO DAILY 02/17/16 Reported Daliresp (Roflumilast) 500 Mcg Tablet 1 Tab PO DAILY 02/17/16 Reported Isosorbide Mononitrate Er (Isosorbide Mononitrate) 60 Mg Tab.er.24h 1 Tab PO DAILY 02/17/16 Reported Nitrostat (Nitroglycerin) 0.4 Mg Tab.subl 0.4 Mg SL PRN Q5MIN PRN 11/20/13 Reported Duoneb 0.5 Mg-3 Mg/3 Ml Soln (Ipratropium/Albuterol Sulfate) 3 Ml Ampul.neb 3 Ml IH QID 11/20/13 Reported Advair 250-50 Diskus (Fluticasone/Salmeterol) 1 Each Disk.w.dev 1 Each IH BID 11/20/13 Reported Aspirin 81 Mg Tab.chew 81 Mg PO DAILY 11/20/13 Reported Simvastatin 40 Mg Tablet 40 Mg PO HS 11/20/13 Reported Combivent Respimat Inhal (Ipratropium/Albuterol Sulfate) 4 Gm Aer.w.adap 4 Gm IH QID 11/20/13 Reported Impression . 1. Acute on chronic respiratory failure, multifactorial, suspect secondary to acute diastolic heart failure and acute nonspecific bronchitis vs viral pneumonitis 2. Possible acute diastolic heart failure. 3. Abnormal x-ray compatible with bilateral pulmonary infiltrates compatible with acute pulmonary edema, other possibilities include atypical pneumonia i.e. mycoplasma or viral pneumonia 4. Tobacco dependence. 5. Coronary artery disease. 6. Diabetes. 7. Fever. Plan . 1. Recommend discontinuing IV fluids. 2. Lasix prn 3. Cover for both gram-positive and gram-negative organisms along with atypical coverage with doxycycline. 4. Obtain blood cultures if fever persists. 5. Steroids. 6. Monitor blood sugars. 7. DVT and GI prophylaxis. 8. Consult cardiology, noticed the patient received adenosine x 1 in the Emergency Department. 9. will need 6 min walk at d/c to determine oxygen needs. she does not uses regularly KENNEDY IRELAND MD Jan 14, 2017 11:55
[2017-01-14] MEDS: DOXYCYCLINE HYCLATE 100 MG in IV DEXTROSE 5% 100 ML IV SCH ×2 (12:39→20:46)
[2017-01-14] MEDS: ENOXAPARIN 40 MG/0.4 ML DISP.SYRIN. SQ SCH (14:00)
[2017-01-14 15:00] VITALS: BP 135/86
--- NOTE | 2017-01-14 15:22 | CARD ---
APPROVED REPORT EXAM: Two-dimensional and M-mode echocardiogram with Doppler and color Doppler. Other Information Quality : GoodHR: 123bpm Rhythm : Tachycardia INDICATION Congestive Heart Failure ? CHF RISK FACTORS Smoking 2D DIMENSIONS RVDd1.8 (2.9-3.5cm)Left Atrium(2D)3.7 (1.6-4.0cm) IVSd1.0 (0.7-1.1cm)Aortic Root(2D)2.8 (2.0-3.7cm) LVDd4.3 (3.9-5.9cm)LVOT Diameter2.2 (1.8-2.4cm) PWd0.5 (0.7-1.1cm)LVDs2.8 (2.5-4.0cm) FS (%) 33.5 %SV51.0 ml LVEF(%)62.6 (>50%) Mitral Valve MV E Rvzvtlyj845.5cm/sMV A Wdtsjerl169.3cm/s E/A Ratio0.6MV A [id number] Pulmonary Valve PV Peak Rzprgfly223.7cm/s Pulmonary Vein S1 Bvrzznid13.7cm/sD2 Tvmizvnv29.1cm/s PVa [id number] LEFT VENTRICLE The left ventricle is normal size. There is normal left ventricular wall thickness. The left ventricu lar systolic function is normal. The Ejection Fraction is 65-70%. There is normal LV segmental wall m otion. Transmitral Doppler flow pattern is Grade I-abnormal relaxation pattern. RIGHT VENTRICLE The right ventricle is normal size. There is normal right ventricular wall thickness. The right ventr icular systolic function is normal. ATRIA The left atrium size is normal. The right atrium size is normal. The interatrial septum is intact wit h no evidence for an atrial septal defect or patent foramen ovale as noted on 2-D or Doppler imaging. AORTIC VALVE The aortic valve is mildly sclerotic. The aortic valve is trileaflet. Doppler and Color Flow revealed no significant aortic regurgitation. There is no significant aortic valvular stenosis. MITRAL VALVE Mitral annular calcification is mild. The mitral valve leaflets are thickened. There is no evidence o f mitral valve prolapse. There is no mitral valve stenosis. Doppler and Color Flow revealed trace tye ral regurgitation. TRICUSPID VALVE The tricuspid valve is not well visualized. Doppler and Color Flow revealed no tricuspid valve regurg itation noted. PULMONIC VALVE The pulmonary valve is normal in structure and function. Doppler and Color Flow revealed no pulmonic valvular regurgitation. There is no pulmonic valvular stenosis. GREAT VESSELS The aortic root is normal in size. The ascending aorta is normal in size. The pulmonary artery is nor mal. The IVC is normal in size and collapses >50% with inspiration. PERICARDIAL EFFUSION There is no evidence of significant pericardial effusion. Critical Notification Critical Value: No <Conclusion> The left ventricular systolic function is normal. The Ejection Fraction is 65-70%. There is normal LV segmental wall motion. Transmitral Doppler flow pattern is Grade I-abnormal relaxation pattern. Trace mitral regurgitation. There is no evidence of significant pericardial effusion.
[2017-01-14] MEDS: VANCOMYCIN PER PHARMACY MC PRN (16:56)
--- NOTE | 2017-01-14 17:01 | RAD ---
CT scan of the chest without contrast 01/14/2017 Clinical history: Shortness of breath. Technique: Unenhanced, contiguous, 5 mm axial sections were obtained through the chest and upper abdomen. One or more of the following individualized dose reduction techniques were utilized for this study: 1. Automated exposure control. 2. Adjustment of the mA and/or kV according to patient size. 3. Use of iterative reconstruction technique. Findings: Comparison study is dated 09/17/2014. Atherosclerotic calcification of the thoracic aorta and its branches is noted. The thoracic aorta is tortuous but tapers normally. Extensive coronary artery calcifications are seen. The heart is normal in size. Calcified right hilar and mediastinal lymph nodes are seen. Small calcified granulomas are seen involving the right lung. Small areas of pleural thickening and scarring are seen involving the apices of both lungs. No area of consolidation is seen. No pneumothorax or pleural effusion is noted. Images through the upper abdomen demonstrate atherosclerotic calcification of the abdominal aorta and its branches. Degenerative changes are seen involving the thoracic spine. Old right-sided rib fractures are again noted. Impression: No acute abnormality is seen.
[2017-01-14] MEDS: DILTIAZEM HCL 30 MG TABLET PO SCH (17:42)
[2017-01-14 19:00] VITALS: BP 132/61
[2017-01-14] MEDS ORDERED: LORAZEPAM 1 MG TABLET. PO PRN (21:30)
[2017-01-14 23:00] VITALS: BP 133/94
[2017-01-15] MEDS: PIPERACILLIN/TAZOBACTAM 3.375 GM in IV NORMAL SALINE 50ML 50 ML IV SCH ×5 (00:02→23:47)
[2017-01-15] MEDS: DILTIAZEM HCL 30 MG TABLET PO SCH ×5 (00:20→23:47)
[2017-01-15 03:00] VITALS: BP 122/68
[2017-01-15] MEDS: ALBUTEROL SULFATE 2.5 MG/3 ML NEBU. NEB PRN ×2 (04:23→11:24)
[2017-01-15 07:00] VITALS: BP 136/86
[2017-01-15] MEDS: IPRATRPIUM/ALBUTEROL 0.5/2.5MG 3 ML NEBU. IH SCH ×3 (07:25→20:35)
--- NOTE | 2017-01-15 08:03 | PDOC ---
Provider Note Provider Note vss, no temp, still midly tachy- some sputum, cult pending , SA vs s pneumo likely - more agitated and paranoid, ? steroids, denies etoh use- will reduce solumedrol and offerred loraz to use prn- d/w , labs ok- TOM OCONNOR MD Jan 15, 2017 08:03
[2017-01-15] MEDS: FAMOTIDINE 20 MG TABLET. PO SCH (08:30)
[2017-01-15] MEDS: ISOSORBIDE MONONITRATE ER 60 MG TAB.ER.24H PO SCH (08:30)
[2017-01-15] MEDS: GUAIFENESIN DM 600/30MG TAB.ER.12H. PO SCH ×2 (08:31→21:06)
[2017-01-15] MEDS: ROFLUMILAST 500 MCG TABLET. PO SCH (08:31)
[2017-01-15] MEDS: DOXYCYCLINE HYCLATE 100 MG in IV DEXTROSE 5% 100 ML IV SCH ×2 (08:33→21:06)
--- NOTE | 2017-01-15 09:32 | PDOC ---
PULMONARY PROGRESS NOTES Subjective mild cough Vitals Vital Signs Date Time Temp Pulse Resp B/P Pulse Ox O2 Delivery O2 Flow Rate FiO2 01/15/17 08:30 113 136/86 01/15/17 07:26 Nasal Cannula 4.0 01/15/17 07:00 98.2 22 90 98.2 General: Alert, No acute distress HEENT: Other Lungs: Wheezing (bilateral ) Cardiovascular: S1, S2 Abdomen: Soft, Non-tender Neuro Exam: Alert Extremities: No Edema Skin: Warm Labs Laboratory Tests Test 01/13/17 18:00 Troponin I Quantitative < 0.017ng/mL (0.000-0.055) Medications Active Scripts Medications Dose Route/Sig Days Date Category Dose Instructions Fish Oil 1,000 Mg Capsule ([place]-3 Fatty Acids/Fish Oil) 1 Each Capsule 2 Each PO DAILY 01/13/17 Reported Clarithromycin 500 Mg Tablet 1 Tab PO BID 01/13/17 Reported Mucinex Dm Er 600-30 Mg Tablet (Guaifenesin/Dextromethorphan) 1 Each Tab.er.12h 2 Tab PO PRN Q12HRS 01/13/17 Reported Ondansetron Hcl 4 Mg Tablet 1 Tab PO PRN Q4HRS 11/15/16 Reported Metoprolol Tartrate 25 Mg Tablet 1 Tab PO BID 11/15/16 Reported Senna (Sennosides) 8.8 Mg/5 Ml Syrup 8.8 Mg PO 11/15/16 Reported Prednisone 10 Mg Tablet 10 Mg PO DAILY 11/15/16 Reported taper started 01/11 at 40 mg/day Zolpidem Tartrate 10 Mg Tablet 1 Tab PO QHS 02/17/16 Reported Fish Oil 1,000 Mg Softgel ([place]-3 Fatty Acids/Fish Oil) 1 Each Capsule 1 Each PO DAILY 02/17/16 Reported Symbicort 160-4.5 Mcg Inhaler (Budesonide/Formoterol Fumarate) 10.2 Gm Hfa.aer.ad 2 Puff IH TID 02/17/16 Reported Zyrtec (Cetirizine Hcl) 10 Mg Tablet 1 Tab PO DAILY 02/17/16 Reported Daliresp (Roflumilast) 500 Mcg Tablet 1 Tab PO DAILY 02/17/16 Reported Isosorbide Mononitrate Er (Isosorbide Mononitrate) 60 Mg Tab.er.24h 1 Tab PO DAILY 02/17/16 Reported Nitrostat (Nitroglycerin) 0.4 Mg Tab.subl 0.4 Mg SL PRN Q5MIN PRN 11/20/13 Reported Duoneb 0.5 Mg-3 Mg/3 Ml Soln (Ipratropium/Albuterol Sulfate) 3 Ml Ampul.neb 3 Ml IH QID 11/20/13 Reported Advair 250-50 Diskus (Fluticasone/Salmeterol) 1 Each Disk.w.dev 1 Each IH BID 11/20/13 Reported Aspirin 81 Mg Tab.chew 81 Mg PO DAILY 11/20/13 Reported Simvastatin 40 Mg Tablet 40 Mg PO HS 11/20/13 Reported Combivent Respimat Inhal (Ipratropium/Albuterol Sulfate) 4 Gm Aer.w.adap 4 Gm IH QID 11/20/13 Reported Impression . 1. Acute on chronic respiratory failure, multifactorial, suspect secondary to acute diastolic heart failure , AECOPD and acute nonspecific bronchitis vs viral pneumonitis 2. Possible acute diastolic heart failure. 3. Abnormal x-ray compatible with bilateral pulmonary infiltrates compatible with acute pulmonary edema, other possibilities include atypical pneumonia i.e. mycoplasma or viral pneumonia 4. Tobacco dependence. 5. Coronary artery disease. 6. Diabetes. 7. Fever. Plan . 1. slowly improving 2. Lasix prn 3. Cover for both gram-positive and gram-negative organisms along with atypical coverage with doxycycline. 4. Obtain blood cultures if fever persists. 5. Steroids. 6. Nebs 7. DVT and GI prophylaxis. 8. will need 6 min walk at d/c to determine oxygen needs. she does not uses regularly KENNEDY IRELAND MD Jan 15, 2017 09:32
[2017-01-15 11:00] VITALS: BP 130/79
[2017-01-15] MEDS: VANCOMYCIN PER PHARMACY MC PRN (11:54)
[2017-01-15] MEDS ORDERED: methylPREDNISolone SOD SUCC PF 125 MG/2 ML VIAL. IV SCH (12:00)
[2017-01-15] MEDS: VANCOMYCIN 1 GM in IV NORMAL SALINE 250ML 250 ML IV SCH (12:09)
[2017-01-15] MEDS: ENOXAPARIN 40 MG/0.4 ML DISP.SYRIN. SQ SCH (13:08)
[2017-01-15 15:29] VITALS: BP 164/83
[2017-01-15 19:00] VITALS: BP 131/94
[2017-01-15] MEDS ORDERED: NICOTINE 14MG PATCH. TD PRN (22:15)
[2017-01-15] MEDS ORDERED: ZOLPIDEM 5 MG TABLET. PO PRN (22:15)
[2017-01-15 23:00] VITALS: BP 163/97
[2017-01-16] MEDS: VANCOMYCIN 1 GM in IV NORMAL SALINE 250ML 250 ML IV SCH (00:34)
[2017-01-16 03:00] VITALS: BP 148/80
[2017-01-16] MEDS: PIPERACILLIN/TAZOBACTAM 3.375 GM in IV NORMAL SALINE 50ML 50 ML IV SCH ×4 (06:32→23:43)
[2017-01-16] MEDS: DILTIAZEM HCL 30 MG TABLET PO SCH (06:32)
[2017-01-16 07:00] VITALS: BP 146/85
[2017-01-16] MEDS: IPRATRPIUM/ALBUTEROL 0.5/2.5MG 3 ML NEBU. IH SCH ×4 (07:16→19:40)
--- NOTE | 2017-01-16 07:34 | PDOC ---
Provider Note Provider Note vss, no new sxs- less agitiation and paranoia- echo good- exam same- now po pred , doxy, likely home 01/17, already on home O2 TOM OCONNOR MD Jan 16, 2017 07:34
[2017-01-16] MEDS: PREDNISONE 20 MG TABLET PO SCH (10:31)
[2017-01-16] MEDS: FAMOTIDINE 20 MG TABLET. PO SCH (10:32)
[2017-01-16] MEDS: ISOSORBIDE MONONITRATE ER 60 MG TAB.ER.24H PO SCH (10:32)
[2017-01-16] MEDS: GUAIFENESIN DM 600/30MG TAB.ER.12H. PO SCH ×2 (10:32→21:00)
[2017-01-16] MEDS: ROFLUMILAST 500 MCG TABLET. PO SCH (10:32)
[2017-01-16] MEDS: DOXYCYCLINE HYCLATE 100 MG TABLET PO SCH ×2 (10:32→21:00)
[2017-01-16] MEDS: DILTIAZEM HCL 180 MG CAP.ER.24H PO SCH (10:32)
[2017-01-16 11:00] VITALS: BP 163/91
[2017-01-16] MEDS: ENOXAPARIN 40 MG/0.4 ML DISP.SYRIN. SQ SCH (11:45)
--- NOTE | 2017-01-16 12:54 | PDOC ---
PULMONARY PROGRESS NOTES Subjective feels better Vitals Vital Signs Date Time Temp Pulse Resp B/P Pulse Ox O2 Delivery O2 Flow Rate FiO2 01/16/17 11:59 94 Nasal Cannula 3.5 01/16/17 11:00 97.9 103 24 163/91 97.9 General: Alert, No acute distress HEENT: Other Lungs: Wheezing (faint ant) Cardiovascular: S1, S2 Abdomen: Soft, Non-tender Neuro Exam: Alert Extremities: No Edema Skin: Warm Labs Laboratory Tests Test 01/15/17 10:30 Vancomycin Level Trough 4.8mcg/mL (10.0-20.0) Vancomycin Last Dose Date 01/14/17 Vancomycin Last Dose Time 0700 Medications Active Scripts Medications Dose Route/Sig Days Date Category Dose Instructions Fish Oil 1,000 Mg Capsule ([place]-3 Fatty Acids/Fish Oil) 1 Each Capsule 2 Each PO DAILY 01/13/17 Reported Clarithromycin 500 Mg Tablet 1 Tab PO BID 01/13/17 Reported Mucinex Dm Er 600-30 Mg Tablet (Guaifenesin/Dextromethorphan) 1 Each Tab.er.12h 2 Tab PO PRN Q12HRS 01/13/17 Reported Ondansetron Hcl 4 Mg Tablet 1 Tab PO PRN Q4HRS 11/15/16 Reported Metoprolol Tartrate 25 Mg Tablet 1 Tab PO BID 11/15/16 Reported Senna (Sennosides) 8.8 Mg/5 Ml Syrup 8.8 Mg PO 11/15/16 Reported Prednisone 10 Mg Tablet 10 Mg PO DAILY 11/15/16 Reported taper started 01/11 at 40 mg/day Zolpidem Tartrate 10 Mg Tablet 1 Tab PO QHS 02/17/16 Reported Fish Oil 1,000 Mg Softgel ([place]-3 Fatty Acids/Fish Oil) 1 Each Capsule 1 Each PO DAILY 02/17/16 Reported Symbicort 160-4.5 Mcg Inhaler (Budesonide/Formoterol Fumarate) 10.2 Gm Hfa.aer.ad 2 Puff IH TID 02/17/16 Reported Zyrtec (Cetirizine Hcl) 10 Mg Tablet 1 Tab PO DAILY 02/17/16 Reported Daliresp (Roflumilast) 500 Mcg Tablet 1 Tab PO DAILY 02/17/16 Reported Isosorbide Mononitrate Er (Isosorbide Mononitrate) 60 Mg Tab.er.24h 1 Tab PO DAILY 02/17/16 Reported Nitrostat (Nitroglycerin) 0.4 Mg Tab.subl 0.4 Mg SL PRN Q5MIN PRN 11/20/13 Reported Duoneb 0.5 Mg-3 Mg/3 Ml Soln (Ipratropium/Albuterol Sulfate) 3 Ml Ampul.neb 3 Ml IH QID 11/20/13 Reported Advair 250-50 Diskus (Fluticasone/Salmeterol) 1 Each Disk.w.dev 1 Each IH BID 11/20/13 Reported Aspirin 81 Mg Tab.chew 81 Mg PO DAILY 11/20/13 Reported Simvastatin 40 Mg Tablet 40 Mg PO HS 11/20/13 Reported Combivent Respimat Inhal (Ipratropium/Albuterol Sulfate) 4 Gm Aer.w.adap 4 Gm IH QID 11/20/13 Reported Impression . 1. Acute on chronic respiratory failure, multifactorial, suspect secondary to acute diastolic heart failure , AECOPD and acute nonspecific bronchitis vs viral pneumonitis 2. Possible acute diastolic heart failure. 3. Abnormal x-ray compatible with bilateral pulmonary infiltrates compatible with acute pulmonary edema, other possibilities include atypical pneumonia i.e. mycoplasma or viral pneumonia 4. Tobacco dependence. 5. Coronary artery disease. 6. Diabetes. 7. Fever.resolved Plan . 1. slowly improving 2. Lasix prn 3. doxycycline. 4. Nebs 5. Steroids. 6. Nebs 7. DVT and GI prophylaxis. 8. will need 6 min walk at d/c to determine oxygen needs. she does not uses regularly home in KENNEDY Vaughn MD Jan 16, 2017 12:54
[2017-01-16 15:00] VITALS: BP 144/80
[2017-01-16 19:00] VITALS: BP 146/93
[2017-01-16 23:10] VITALS: BP 136/75
[2017-01-17] MEDS: PIPERACILLIN/TAZOBACTAM 3.375 GM in IV NORMAL SALINE 50ML 50 ML IV SCH (05:48)
[2017-01-17] MEDS: IPRATRPIUM/ALBUTEROL 0.5/2.5MG 3 ML NEBU. IH SCH ×4 (06:57→19:29)
[2017-01-17 07:00] VITALS: BP 139/89
[2017-01-17] MEDS: DILTIAZEM HCL 180 MG CAP.ER.24H PO SCH (10:26)
[2017-01-17] MEDS: ISOSORBIDE MONONITRATE ER 60 MG TAB.ER.24H PO SCH (10:26)
[2017-01-17] MEDS: GUAIFENESIN DM 600/30MG TAB.ER.12H. PO SCH ×2 (10:26→20:31)
[2017-01-17] MEDS: DOXYCYCLINE HYCLATE 100 MG TABLET PO SCH ×2 (10:26→20:31)
[2017-01-17] MEDS: ROFLUMILAST 500 MCG TABLET. PO SCH (10:26)
[2017-01-17] MEDS: PREDNISONE 20 MG TABLET PO SCH (10:27)
[2017-01-17] MEDS: FAMOTIDINE 20 MG TABLET. PO SCH (10:27)
[2017-01-17 10:47] VITALS: BP 131/85
--- NOTE | 2017-01-17 11:05 | PDOC ---
PROGRESS NOTES Subjective Subjective Pt awake and pleasant this am. Pt states her breathing is close to her baseline. Pt states she is eating and drinking well with good output. Pt denies further hallucinations. Objective Objective Pt awake and alert. Confusion improved. Resp even and unlabored. Lungs with loose rhonchi throughout, baseline for pt as outpt. Pt on 3L of O2 per NC. Heart with RRR. No murmurs. Vital Signs Date Time Temp Pulse Resp B/P Pulse Ox O2 Delivery O2 Flow Rate FiO2 01/17/17 10:26 97 139/89 01/17/17 07:00 97.7 18 93 Nasal Cannula 3.0 97.7 Intake and Output 01/17/17 07:00 Intake Total 2200 ml Output Total 2900 ml Balance -700 ml Intake Oral 2200 ml Output Urine Total 2900 ml # Voids 4 # Bowel Movements 1 Assessment Assessment Problems Medical Problems: (1) Acute respiratory distress Status: Acute (2) COPD exacerbation Status: Acute (3) Pneumonia Status: Acute (4) Sepsis Status: Acute Plan Plan of Care 1. COPD exacerbation with respiratory failure -Pulmonary consulting -CXR on 01/13: Mild prominent appearing bilateral interstitial lung markings probably mild congestive changes. -CXR on 01/14: 1. Hyperinflation suggests chronic obstructive pulmonary disease. Mild basilar scarring versus atypical pneumonia. 2. Mild cardiomegaly. -CT chest on 01/14: No acute abnormality is seen. -Doxy PO bid and Prednisone PO -6 minute walk today to determine need for home O2. 2. Encephalopathy, improved 3. Leukocytosis -Zosyn and Vanc initiated on 01/13 to cover for , Dc'd today. -Recheck CBC in am 6 minute walk today. Hopeful for Dc home tomorrow am. Comment Review of Relevant I have reviewed the following items jonel (where applicable) has been applied. Labs Microbiology 01/13/17 Blood Culture - Preliminary, Resulted 01/13/17 Blood Culture Result 1 (PRABHJOT) - Preliminary, Resulted 01/13/17 Antimicrobic Susceptibility - Preliminary, Resulted 01/13/17 Gram Stain - Final, Complete 01/13/17 Urine Culture - Final, Complete 01/13/17 Urine Culture Result 1 (PRABHJOT) - Final, Complete Medications Current Medications Tobramycin Sulfate (Nebcin Per Pharmacy) 1 each PRN DAILY PRN PHARMACY TO DOSE; Start 01/13/17 at 05:45; Stop 01/13/17 at 08:55; Status DC Vancomycin HCl (Vanco Per Pharmacy) 1 each PRN DAILY PRN PHARMACY TO DOSE Last administered on 01/15/17 11:54; Start 01/13/17 at 05:45 Ondansetron HCl (Zofran) 4 mg 1X ONCE IV Last administered on 01/13/17 06:11; Start 01/13/17 at 06:00; Stop 01/13/17 at 06:01; Status DC Piperacillin Sod/ Tazobactam Sod (Zosyn Per Pharmacy) 1 each PRN DAILY PRN SEE COMMENTS; Start 01/13/17 at 05:45; Stop 01/13/17 at 09:13; Status DC Adenosine (Adenocard) 6 mg 1X ONCE IV Last administered on 01/13/17 06:05; Start 01/13/17 at 06:00; Stop 01/13/17 at 06:01; Status DC Acetaminophen (Tylenol) 1,000 mg 1X ONCE PO Last administered on 01/13/17 06: 11; Start 01/13/17 at 06:00; Stop 01/13/17 at 06:01; Status DC Ketorolac Tromethamine (Toradol) 15 mg 1X ONCE IV Last administered on 06:11; Start 01/13/17 at 06:00; Stop 01/13/17 at 06:01; Status DC Methylprednisolone Sodium Succinate 125 mg 125 mg 1X ONCE IV Last administered on 01/13/17 06:12; Start 01/13/17 at 06:00; Stop 01/13/17 at 06:01; Status DC Vancomycin HCl 1.5 gm/Sodium Chloride 500 ml @ 250 mls/hr 1X ONCE IV Last administered on 01/13/17 06:30; Start 01/13/17 at 06:30; Stop 01/13/17 at 08:29; Status DC Piperacillin Sod/ Tazobactam Sod/ Sodium Chloride (Zosyn/Iv Sodium Chloride 0.9 % 50ml) 50 ml @ 100 mls/hr 1X ONCE IV Last administered on 01/13/17 06:16; Start 01/13/17 at 06:00; Stop 01/13/17 at 06:29; Status DC Ondansetron HCl (Zofran) 4 mg PRN Q8HRS PRN IV NAUSEA/VOMITING; Start 01/13/17 at 06:15; Stop 01/14/17 at 06:14; Status DC Morphine Sulfate 2 mg 2 mg PRN Q2HR PRN IV SEVERE PAIN; Start 01/13/17 at 06:15 ; Stop 01/14/17 at 06:14; Status DC Sodium Chloride (Iv Sodium Chloride 0.9% 1000ml Bag) 1,000 ml @ 125 mls/hr Q8H IV Last administered on 01/13/17 06:06; Start 01/13/17 at 06:06; Stop 01/13/17 at 12:17; Status DC Acetaminophen (Tylenol) 650 mg PRN Q4HRS PRN PO FEVER; Start 01/13/17 at 06:15; Stop 01/14/17 at 06:14; Status DC Albuterol/ Ipratropium (Duoneb) 3 ml RTQID NEB Last administered on 01/13/17 07 :48; Start 01/13/17 at 08:00; Stop 01/13/17 at 08:55; Status DC Albuterol/ Ipratropium (Duoneb) 3 ml RTQID IH Last administered on 01/17/17 06: 57; Start 01/13/17 at 09:00 Isosorbide Mononitrate (Imdur) 60 mg DAILY PO Last administered on 01/17/17 10: 26; Start 01/13/17 at 09:00 Nitroglycerin (Nitrostat) 0.4 mg PRN Q5MIN PRN SL CHEST PAIN; Start 01/13/17 at 08:45 Methylprednisolone Sodium Succinate (Solu-Medrol 125mg Vial) 60 mg Q12HR IV Last administered on 01/14/17 20:43; Start 01/13/17 at 09:00; Stop 01/15/17 at 08: 02; Status DC Famotidine 20 mg 20 mg BID IVP ; Start 01/13/17 at 09:00; Stop 01/13/17 at 09:13; Status DC Vancomycin HCl 1 gm/Sodium Chloride 250 ml @ 250 mls/hr Q24H IV Last administered on 01/14/17 10:58; Start 01/14/17 at 07:00; Stop 01/15/17 at 11:54; Status DC Piperacillin Sod/ Tazobactam Sod/ Sodium Chloride (Zosyn/Iv Sodium Chloride 0.9 % 50ml) 50 ml @ 100 mls/hr Q6HRS IV Last administered on 01/17/17 05:48; Start 01/13/17 at 12:00 Metoprolol Tartrate (Lopressor) 25 mg BID PO Last administered on 01/14/17 09: 12; Start 01/13/17 at 09:30; Stop 01/14/17 at 15:03; Status DC Roflumilast (Daliresp) 500 mcg DAILY PO Last administered on 01/17/17 10:26; Start 01/14/17 at 09:00 Vancomycin HCl 1 each 1X ONCE MC Last administered on 01/15/17 10:30; Start at 10:30; Stop 01/15/17 at 10:31; Status DC Famotidine 20 mg 20 mg DAILY IVP Last administered on 01/13/17 09:26; Start 01/13/17 at 09:30; Stop 01/14/17 at 07:59; Status DC Doxycycline Hyclate/Dextrose 100 ml @ 50 mls/hr Q12HR IV Last administered on 01/15/17 21:06; Start 01/13/17 at 13:00; Stop 01/16/17 at 07:22; Status DC Furosemide (Lasix) 40 mg 1X ONCE IVP Last administered on 01/13/17 12:44; Start 01/13/17 at 12:30; Stop 01/13/17 at 12:33; Status DC Enoxaparin Sodium (Lovenox 40mg Syringe) 40 mg Q24H SQ Last administered on 01/16 11:45; Start 01/13/17 at 13:00 Roflumilast (Daliresp) 500 mcg DAILY PO ; Start 01/14/17 at 09:00; Status UNV Albuterol Sulfate (Ventolin Neb Soln) 2.5 mg PRN Q4HRS PRN NEB SHORTNESS OF BREATH Last administered on 01/15/17 11:24; Start 01/13/17 at 13:15 Famotidine (Pepcid) 20 mg DAILY PO Last administered on 01/17/17 10:27; Start 01/14/17 at 09:00 Albuterol Sulfate (Ventolin Neb Soln) 2.5 mg PRN Q4HRS PRN NEB SHORTNESS OF BREATH; Start 01/14/17 at 08:00; Status UNV Guaifenesin (MUCINEX ER with DM) 1 tab BID PO Last administered on 01/17/17 10: 26; Start 01/14/17 at 09:00 Diltiazem HCl (Cardizem) 30 mg Q6HRS PO Last administered on 01/16/17 06:32; Start 01/14/17 at 18:00; Stop 01/16/17 at 07:33; Status DC Lorazepam (Ativan) 1 mg PRN Q8HRS PRN PO ANXIETY / AGITATION Last administered on 01/14/17 22:00; Start 01/14/17 at 21:30; Stop 01/15/17 at 22:14; Status DC Methylprednisolone Sodium Succinate 60 mg 60 mg DAILY08 IV Last administered on 01/15/17 11:09; Start 01/15/17 at 12:00; Stop 01/16/17 at 07:33; Status DC Vancomycin HCl/ Sodium Chloride (Iv Sodium Chloride 0.9% 250ml) 250 ml @ 250 mls/hr Q12H IV Last administered on 01/16/17 00:34; Start 01/15/17 at 12:00; Stop 01/16/17 at 07:22; Status DC Zolpidem Tartrate (Ambien) 5 mg PRN QHS PRN PO INSOMNIA Last administered on 22:54; Start 01/15/17 at 22:15 Nicotine (Nicoderm Cq 14mg) 1 patch PRN DAILY PRN TD SMOKING CESSATION; Start 01/15/17 at 22:15 Doxycycline Hyclate (Vibra-Tab) 100 mg BID PO Last administered on 01/17/17 10: 26; Start 01/16/17 at 09:00 Prednisone (Prednisone) 40 mg DAILY PO Last administered on 01/17/17 10:27; Start 01/16/17 at 09:00 Diltiazem HCl (Cardizem 24hr Cd) 180 mg DAILY PO Last administered on 01/17/17 10:26; Start 01/16/17 at 09:00 Active Scripts Active Reported Fish Oil 1,000 Mg Capsule ([place]-3 Fatty Acids/Fish Oil) 1 Each Capsule 2 Each PO DAILY Clarithromycin 500 Mg Tablet 1 Tab PO BID Mucinex Dm Er 600-30 Mg Tablet (Guaifenesin/Dextromethorphan) 1 Each Tab.er.12h 2 Tab PO PRN Q12HRS Ondansetron Hcl 4 Mg Tablet 1 Tab PO PRN Q4HRS Metoprolol Tartrate 25 Mg Tablet 1 Tab PO BID Senna (Sennosides) 8.8 Mg/5 Ml Syrup 8.8 Mg PO Prednisone 10 Mg Tablet 10 Mg PO DAILY taper started 01/11 at 40 mg/day Zolpidem Tartrate 10 Mg Tablet 1 Tab PO QHS Fish Oil 1,000 Mg Softgel ([place]-3 Fatty Acids/Fish Oil) 1 Each Capsule 1 Each PO DAILY Symbicort 160-4.5 Mcg Inhaler (Budesonide/Formoterol Fumarate) 10.2 Gm Hfa.aer.ad 2 Puff IH TID Zyrtec (Cetirizine Hcl) 10 Mg Tablet 1 Tab PO DAILY Daliresp (Roflumilast) 500 Mcg Tablet 1 Tab PO DAILY Isosorbide Mononitrate Er (Isosorbide Mononitrate) 60 Mg Tab.er.24h 1 Tab PO DAILY Nitrostat (Nitroglycerin) 0.4 Mg Tab.subl 0.4 Mg SL PRN Q5MIN PRN Duoneb 0.5 Mg-3 Mg/3 Ml Soln (Ipratropium/Albuterol Sulfate) 3 Ml Ampul.neb 3 Ml IH QID Advair 250-50 Diskus (Fluticasone/Salmeterol) 1 Each Disk.w.dev 1 Each IH BID Aspirin 81 Mg Tab.chew 81 Mg PO DAILY Simvastatin 40 Mg Tablet 40 Mg PO HS Combivent Respimat Inhal (Ipratropium/Albuterol Sulfate) 4 Gm Aer.w.adap 4 Gm IH QID Vitals/I & O Vital Sign - Last 24 Hours 01/16/17 01/16/17 01/16/17 01/16/17 11:00 11:59 15:00 15:31 Temp 97.9 97.5 97.9 97.5 Pulse 103 111 Resp 24 24 B/P 163/91 144/80 Pulse Ox 96 94 92 96 O2 Delivery Nasal Cannula Nasal Cannula Nasal Cannula Nasal Cannula O2 Flow Rate 3.0 3.5 3.0 3.5 01/16/17 01/16/17 01/16/17 01/16/17 19:00 19:41 20:00 23:10 Temp 97.5 97.5 97.5 97.5 Pulse 120 76 Resp 18 19 B/P 146/93 136/75 Pulse Ox 92 96 93 O2 Delivery Room Air Nasal Cannula Nasal Cannula Nasal Cannula O2 Flow Rate 3.5 3.0 3.0 01/17/17 01/17/17 01/17/17 01/17/17 06:59 07:00 10:26 10:26 Temp 97.7 97.7 Pulse 97 97 97 Resp 18 B/P 139/89 139/89 139/89 Pulse Ox 95 93 O2 Delivery Nasal Cannula Nasal Cannula O2 Flow Rate 3.5 3.0 Intake and Output 01/16/17 01/16/17 01/17/17 15:00 23:00 07:00 Intake Total 1800 ml 400 ml Output Total 2900 ml Balance -1100 ml 400 ml HELEN BARAJAS MD Jan 17, 2017 11:05
--- NOTE | 2017-01-17 11:16 | PDOC ---
PULMONARY PROGRESS NOTES Subjective feels better Vitals Vital Signs Date Time Temp Pulse Resp B/P Pulse Ox O2 Delivery O2 Flow Rate FiO2 01/17/17 10:47 97.7 111 18 131/85 92 Nasal Cannula 3.0 97.7 General: Alert, No acute distress HEENT: Other Lungs: Wheezing (faint ant) Cardiovascular: S1, S2 Abdomen: Soft, Non-tender Neuro Exam: Alert Extremities: No Edema Skin: Warm Medications Active Scripts Medications Dose Route/Sig Days Date Category Dose Instructions Fish Oil 1,000 Mg Capsule ([place]-3 Fatty Acids/Fish Oil) 1 Each Capsule 2 Each PO DAILY 01/13/17 Reported Clarithromycin 500 Mg Tablet 1 Tab PO BID 01/13/17 Reported Mucinex Dm Er 600-30 Mg Tablet (Guaifenesin/Dextromethorphan) 1 Each Tab.er.12h 2 Tab PO PRN Q12HRS 01/13/17 Reported Ondansetron Hcl 4 Mg Tablet 1 Tab PO PRN Q4HRS 11/15/16 Reported Metoprolol Tartrate 25 Mg Tablet 1 Tab PO BID 11/15/16 Reported Senna (Sennosides) 8.8 Mg/5 Ml Syrup 8.8 Mg PO 11/15/16 Reported Prednisone 10 Mg Tablet 10 Mg PO DAILY 11/15/16 Reported taper started 01/11 at 40 mg/day Zolpidem Tartrate 10 Mg Tablet 1 Tab PO QHS 02/17/16 Reported Fish Oil 1,000 Mg Softgel ([place]-3 Fatty Acids/Fish Oil) 1 Each Capsule 1 Each PO DAILY 02/17/16 Reported Symbicort 160-4.5 Mcg Inhaler (Budesonide/Formoterol Fumarate) 10.2 Gm Hfa.aer.ad 2 Puff IH TID 02/17/16 Reported Zyrtec (Cetirizine Hcl) 10 Mg Tablet 1 Tab PO DAILY 02/17/16 Reported Daliresp (Roflumilast) 500 Mcg Tablet 1 Tab PO DAILY 02/17/16 Reported Isosorbide Mononitrate Er (Isosorbide Mononitrate) 60 Mg Tab.er.24h 1 Tab PO DAILY 02/17/16 Reported Nitrostat (Nitroglycerin) 0.4 Mg Tab.subl 0.4 Mg SL PRN Q5MIN PRN 11/20/13 Reported Duoneb 0.5 Mg-3 Mg/3 Ml Soln (Ipratropium/Albuterol Sulfate) 3 Ml Ampul.neb 3 Ml IH QID 11/20/13 Reported Advair 250-50 Diskus (Fluticasone/Salmeterol) 1 Each Disk.w.dev 1 Each IH BID 11/20/13 Reported Aspirin 81 Mg Tab.chew 81 Mg PO DAILY 11/20/13 Reported Simvastatin 40 Mg Tablet 40 Mg PO HS 11/20/13 Reported Combivent Respimat Inhal (Ipratropium/Albuterol Sulfate) 4 Gm Aer.w.adap 4 Gm IH QID 11/20/13 Reported Impression . 1. Acute on chronic respiratory failure, multifactorial, suspect secondary to acute diastolic heart failure , AECOPD and acute nonspecific bronchitis vs viral pneumonitis 2. Possible acute diastolic heart failure. 3. Abnormal x-ray compatible with bilateral pulmonary infiltrates compatible with acute pulmonary edema, other possibilities include atypical pneumonia i.e. mycoplasma or viral pneumonia 4. Tobacco dependence. 5. Coronary artery disease. 6. Diabetes. 7. Fever.resolved Plan . 1. clinically better 2. Lasix prn 3. doxycycline. 4. Nebs 5. Steroids. 6. Nebs 7. DVT and GI prophylaxis. 8. stable pulmonary [place] for d/c. she wants to stay KENNEDY IRELAND MD Jan 17, 2017 11:16
[2017-01-17 11:44] LABS: HEMATOCRIT 40.7 % (36.0-47.0); HEMOGLOBIN 13.3 g/dL (12.0-15.5); RED BLOOD COUNT 4.74 x10^6/uL (3.50-5.40); RED CELL DISTRIBUTION WIDTH 14.8 % (11.5-14.5); WHITE BLOOD COUNT 21.7 x10^3/uL (4.0-11.0)
[2017-01-17] MEDS: ENOXAPARIN 40 MG/0.4 ML DISP.SYRIN. SQ SCH (12:27)
[2017-01-17 15:00] VITALS: BP 133/82
[2017-01-17 19:00] VITALS: BP 109/65
[2017-01-17 23:00] VITALS: BP 118/68
[2017-01-18 03:00] VITALS: BP 142/99
[2017-01-18 07:00] VITALS: BP 147/74
[2017-01-18] MEDS: IPRATRPIUM/ALBUTEROL 0.5/2.5MG 3 ML NEBU. IH SCH ×2 (07:43→11:39)
[2017-01-18] MEDS: ROFLUMILAST 500 MCG TABLET. PO SCH (08:41)
[2017-01-18] MEDS: DILTIAZEM HCL 180 MG CAP.ER.24H PO SCH (08:41)
[2017-01-18] MEDS: ISOSORBIDE MONONITRATE ER 60 MG TAB.ER.24H PO SCH (08:42)
[2017-01-18] MEDS: FAMOTIDINE 20 MG TABLET. PO SCH (08:42)
[2017-01-18] MEDS: DOXYCYCLINE HYCLATE 100 MG TABLET PO SCH (08:42)
[2017-01-18] MEDS: GUAIFENESIN DM 600/30MG TAB.ER.12H. PO SCH (08:42)
[2017-01-18] MEDS: PREDNISONE 20 MG TABLET PO SCH (08:42)
[2017-01-18] MEDS ORDERED: PRED20TA PO (10:07)
[2017-01-18] MEDS ORDERED: DOXY100T PO (10:07)
[2017-01-18] MEDS ORDERED: DILT180C90 PO (10:07)
--- NOTE | 2017-01-18 10:09 | PDOC ---
PROGRESS NOTES Subjective Subjective Pt awake and pleasant. States she is feeling better, however continues to c/o SOB with exertion. Pt states she is eating and drinking well with good output. Objective Objective Pt awake and alert. NAD. VSS. Afebrile. Lung sounds shallow with expiratory wheeze present. Resp even and unlabored. Pt on 3.5L of O2 per NC. Heart with RRR. No murmurs. Vital Signs Date Time Temp Pulse Resp B/P Pulse Ox O2 Delivery O2 Flow Rate FiO2 01/18/17 08:42 95 147/74 01/18/17 07:44 95 Nasal Cannula 3.5 01/18/17 07:00 97.7 18 97.7 Intake and Output 01/18/17 07:00 Intake Total 2300 ml Balance 2300 ml Intake Oral 2300 ml # Voids 4 # Bowel Movements 1 Assessment Assessment Problems Medical Problems: (1) Acute respiratory distress Status: Acute (2) COPD exacerbation Status: Acute (3) Pneumonia Status: Acute (4) Sepsis Status: Acute Plan Plan of Care 1. COPD exacerbation with respiratory failure -Pulmonary consulting -CXR on 01/13: Mild prominent appearing bilateral interstitial lung markings probably mild congestive changes. -CXR on 01/14: 1. Hyperinflation suggests chronic obstructive pulmonary disease. Mild basilar scarring versus atypical pneumonia. 2. Mild cardiomegaly. -CT chest on 01/14: No acute abnormality is seen. -Doxy PO bid and Prednisone PO -6 minute walk on 01/17. Conclusion: pt will need 3L of O2 at rest and 4L of 02 with exertion -SW consulted to set home O2 2. Encephalopathy, improved 3. Leukocytosis -Zosyn and Vanc initiated on 01/13 to cover for MRSA and pseudomonas, Dc'd 01/17. -Continues to trend up, believed secondary to steroids Pt may Dc home today following set up of home O2. SW consulted to help with Dc plans. Upon Dc, see med rec for home medications. New prescriptions sent through EMR to pharmacy. Activity as tolerated. Regular diet. F/u in our office in 1 week or sooner if s/s indicate ([phone]). Comment Review of Relevant I have reviewed the following items jonel (where applicable) has been applied. Labs Laboratory Tests Test 01/17/17 11:40 White Blood Count 21.7x10^3/uL (4.0-11.0) Red Blood Count 4.74x10^6/uL (3.50-5.40) Hemoglobin 13.3g/dL (12.0-15.5) Hematocrit 40.7% (36.0-47.0) Mean Corpuscular Volume 86fL (79-100) Mean Corpuscular Hemoglobin 28pg (25-35) Mean Corpuscular Hemoglobin Concent 33g/dL (31-37) Red Cell Distribution Width 14.8% (11.5-14.5) Platelet Count 428x10^3/uL (140-400) Laboratory Tests Test 01/17/17 11:40 White Blood Count 21.7x10^3/uL (4.0-11.0) Red Blood Count 4.74x10^6/uL (3.50-5.40) Hemoglobin 13.3g/dL (12.0-15.5) Hematocrit 40.7% (36.0-47.0) Mean Corpuscular Volume 86fL (79-100) Mean Corpuscular Hemoglobin 28pg (25-35) Mean Corpuscular Hemoglobin Concent 33g/dL (31-37) Red Cell Distribution Width 14.8% (11.5-14.5) Platelet Count 428x10^3/uL (140-400) Microbiology 01/13/17 Blood Culture - Final, Complete 01/13/17 Blood Culture Result 1 (PRABHJOT) - Final, Complete 01/13/17 Antimicrobic Susceptibility - Final, Complete 01/13/17 Gram Stain - Final, Complete 01/13/17 Urine Culture - Final, Complete 01/13/17 Urine Culture Result 1 (PRABHJOT) - Final, Complete Medications Current Medications Tobramycin Sulfate (Nebcin Per Pharmacy) 1 each PRN DAILY PRN PHARMACY TO DOSE; Start 01/13/17 at 05:45; Stop 01/13/17 at 08:55; Status DC Vancomycin HCl (Vanco Per Pharmacy) 1 each PRN DAILY PRN PHARMACY TO DOSE Last administered on 01/15/17 11:54; Start 01/13/17 at 05:45; Stop 01/17/17 at 11: 03; Status DC Ondansetron HCl (Zofran) 4 mg 1X ONCE IV Last administered on 01/13/17 06:11; Start 01/13/17 at 06:00; Stop 01/13/17 at 06:01; Status DC Piperacillin Sod/ Tazobactam Sod (Zosyn Per Pharmacy) 1 each PRN DAILY PRN MC SEE COMMENTS; Start 01/13/17 at 05:45; Stop 01/13/17 at 09:13; Status DC Adenosine (Adenocard) 6 mg 1X ONCE IV Last administered on 01/13/17 06:05; Start 01/13/17 at 06:00; Stop 01/13/17 at 06:01; Status DC Acetaminophen (Tylenol) 1,000 mg 1X ONCE PO Last administered on 01/13/17 06: 11; Start 01/13/17 at 06:00; Stop 01/13/17 at 06:01; Status DC Ketorolac Tromethamine (Toradol) 15 mg 1X ONCE IV Last administered on 06:11; Start 01/13/17 at 06:00; Stop 01/13/17 at 06:01; Status DC Methylprednisolone Sodium Succinate 125 mg 125 mg 1X ONCE IV Last administered on 01/13/17 06:12; Start 01/13/17 at 06:00; Stop 01/13/17 at 06:01; Status DC Vancomycin HCl 1.5 gm/Sodium Chloride 500 ml @ 250 mls/hr 1X ONCE IV Last administered on 01/13/17 06:30; Start 01/13/17 at 06:30; Stop 01/13/17 at 08:29; Status DC Piperacillin Sod/ Tazobactam Sod/ Sodium Chloride (Zosyn/Iv Sodium Chloride 0.9 % 50ml) 50 ml @ 100 mls/hr 1X ONCE IV Last administered on 01/13/17 06:16; Start 01/13/17 at 06:00; Stop 01/13/17 at 06:29; Status DC Ondansetron HCl (Zofran) 4 mg PRN Q8HRS PRN IV NAUSEA/VOMITING; Start 01/13/17 at 06:15; Stop 01/14/17 at 06:14; Status DC Morphine Sulfate 2 mg 2 mg PRN Q2HR PRN IV SEVERE PAIN; Start 01/13/17 at 06:15 ; Stop 01/14/17 at 06:14; Status DC Sodium Chloride (Iv Sodium Chloride 0.9% 1000ml Bag) 1,000 ml @ 125 mls/hr Q8H IV Last administered on 01/13/17 06:06; Start 01/13/17 at 06:06; Stop 01/13/17 at 12:17; Status DC Acetaminophen (Tylenol) 650 mg PRN Q4HRS PRN PO FEVER; Start 01/13/17 at 06:15; Stop 01/14/17 at 06:14; Status DC Albuterol/ Ipratropium (Duoneb) 3 ml RTQID NEB Last administered on 01/13/17 07 :48; Start 01/13/17 at 08:00; Stop 01/13/17 at 08:55; Status DC Albuterol/ Ipratropium (Duoneb) 3 ml RTQID IH Last administered on 01/18/17 07 :43; Start 01/13/17 at 09:00 Isosorbide Mononitrate (Imdur) 60 mg DAILY PO Last administered on 01/18/17 08 :42; Start 01/13/17 at 09:00 Nitroglycerin (Nitrostat) 0.4 mg PRN Q5MIN PRN SL CHEST PAIN; Start 01/13/17 at 08:45 Methylprednisolone Sodium Succinate (Solu-Medrol 125mg Vial) 60 mg Q12HR IV Last administered on 01/14/17 20:43; Start 01/13/17 at 09:00; Stop 01/15/17 at 08: 02; Status DC Famotidine 20 mg 20 mg BID IVP ; Start 01/13/17 at 09:00; Stop 01/13/17 at 09:13; Status DC Vancomycin HCl 1 gm/Sodium Chloride 250 ml @ 250 mls/hr Q24H IV Last administered on 01/14/17 10:58; Start 01/14/17 at 07:00; Stop 01/15/17 at 11:54; Status DC Piperacillin Sod/ Tazobactam Sod/ Sodium Chloride (Zosyn/Iv Sodium Chloride 0.9 % 50ml) 50 ml @ 100 mls/hr Q6HRS IV Last administered on 01/17/17 05:48; Start 01/13/17 at 12:00; Stop 01/17/17 at 11:03; Status DC Metoprolol Tartrate (Lopressor) 25 mg BID PO Last administered on 01/14/17 09: 12; Start 01/13/17 at 09:30; Stop 01/14/17 at 15:03; Status DC Roflumilast (Daliresp) 500 mcg DAILY PO Last administered on 01/18/17 08:41; Start 01/14/17 at 09:00 Vancomycin HCl 1 each 1X ONCE MC Last administered on 01/15/17 10:30; Start at 10:30; Stop 01/15/17 at 10:31; Status DC Famotidine 20 mg 20 mg DAILY IVP Last administered on 01/13/17 09:26; Start 01/13/17 at 09:30; Stop 01/14/17 at 07:59; Status DC Doxycycline Hyclate/Dextrose 100 ml @ 50 mls/hr Q12HR IV Last administered on 01/15/17 21:06; Start 01/13/17 at 13:00; Stop 01/16/17 at 07:22; Status DC Furosemide (Lasix) 40 mg 1X ONCE IVP Last administered on 01/13/17 12:44; Start 01/13/17 at 12:30; Stop 01/13/17 at 12:33; Status DC Enoxaparin Sodium (Lovenox 40mg Syringe) 40 mg Q24H SQ Last administered on 01/17 12:27; Start 01/13/17 at 13:00 Roflumilast (Daliresp) 500 mcg DAILY PO ; Start 01/14/17 at 09:00; Status UNV Albuterol Sulfate (Ventolin Neb Soln) 2.5 mg PRN Q4HRS PRN NEB SHORTNESS OF BREATH Last administered on 01/15/17 11:24; Start 01/13/17 at 13:15 Famotidine (Pepcid) 20 mg DAILY PO Last administered on 01/18/17 08:42; Start 01/14/17 at 09:00 Albuterol Sulfate (Ventolin Neb Soln) 2.5 mg PRN Q4HRS PRN NEB SHORTNESS OF BREATH; Start 01/14/17 at 08:00; Status UNV Guaifenesin (MUCINEX ER with DM) 1 tab BID PO Last administered on 01/18/17 08 :42; Start 01/14/17 at 09:00 Diltiazem HCl (Cardizem) 30 mg Q6HRS PO Last administered on 01/16/17 06:32; Start 01/14/17 at 18:00; Stop 01/16/17 at 07:33; Status DC Lorazepam (Ativan) 1 mg PRN Q8HRS PRN PO ANXIETY / AGITATION Last administered on 01/14/17 22:00; Start 01/14/17 at 21:30; Stop 01/15/17 at 22:14; Status DC Methylprednisolone Sodium Succinate 60 mg 60 mg DAILY08 IV Last administered on 01/15/17 11:09; Start 01/15/17 at 12:00; Stop 01/16/17 at 07:33; Status DC Vancomycin HCl/ Sodium Chloride (Iv Sodium Chloride 0.9% 250ml) 250 ml @ 250 mls/hr Q12H IV Last administered on 01/16/17 00:34; Start 01/15/17 at 12:00; Stop 01/16/17 at 07:22; Status DC Zolpidem Tartrate (Ambien) 5 mg PRN QHS PRN PO INSOMNIA Last administered on 22:54; Start 01/15/17 at 22:15 Nicotine (Nicoderm Cq 14mg) 1 patch PRN DAILY PRN TD SMOKING CESSATION; Start 01/15/17 at 22:15 Doxycycline Hyclate (Vibra-Tab) 100 mg BID PO Last administered on 01/18/17 08 :42; Start 01/16/17 at 09:00 Prednisone (Prednisone) 40 mg DAILY PO Last administered on 01/18/17 08:42; Start 01/16/17 at 09:00 Diltiazem HCl (Cardizem 24hr Cd) 180 mg DAILY PO Last administered on 08:41; Start 01/16/17 at 09:00 Active Scripts Active Reported Fish Oil 1,000 Mg Capsule ([place]-3 Fatty Acids/Fish Oil) 1 Each Capsule 2 Each PO DAILY Clarithromycin 500 Mg Tablet 1 Tab PO BID Mucinex Dm Er 600-30 Mg Tablet (Guaifenesin/Dextromethorphan) 1 Each Tab.er.12h 2 Tab PO PRN Q12HRS Ondansetron Hcl 4 Mg Tablet 1 Tab PO PRN Q4HRS Metoprolol Tartrate 25 Mg Tablet 1 Tab PO BID Senna (Sennosides) 8.8 Mg/5 Ml Syrup 8.8 Mg PO Prednisone 10 Mg Tablet 10 Mg PO DAILY taper started 01/11 at 40 mg/day Zolpidem Tartrate 10 Mg Tablet 1 Tab PO QHS Fish Oil 1,000 Mg Softgel ([place]-3 Fatty Acids/Fish Oil) 1 Each Capsule 1 Each PO DAILY Symbicort 160-4.5 Mcg Inhaler (Budesonide/Formoterol Fumarate) 10.2 Gm Hfa.aer.ad 2 Puff IH TID Zyrtec (Cetirizine Hcl) 10 Mg Tablet 1 Tab PO DAILY Daliresp (Roflumilast) 500 Mcg Tablet 1 Tab PO DAILY Isosorbide Mononitrate Er (Isosorbide Mononitrate) 60 Mg Tab.er.24h 1 Tab PO DAILY Nitrostat (Nitroglycerin) 0.4 Mg Tab.subl 0.4 Mg SL PRN Q5MIN PRN Duoneb 0.5 Mg-3 Mg/3 Ml Soln (Ipratropium/Albuterol Sulfate) 3 Ml Ampul.neb 3 Ml IH QID Advair 250-50 Diskus (Fluticasone/Salmeterol) 1 Each Disk.w.dev 1 Each IH BID Aspirin 81 Mg Tab.chew 81 Mg PO DAILY Simvastatin 40 Mg Tablet 40 Mg PO HS Combivent Respimat Inhal (Ipratropium/Albuterol Sulfate) 4 Gm Aer.w.adap 4 Gm IH QID Vitals/I & O Vital Sign - Last 24 Hours 01/17/17 01/17/17 01/17/17 01/17/17 10:26 10:26 10:30 10:47 Temp 97.7 97.7 Pulse 97 97 111 Resp 18 B/P 139/89 139/89 131/85 Pulse Ox 92 O2 Delivery Nasal Cannula Nasal Cannula O2 Flow Rate 2.0 3.0 01/17/17 01/17/17 01/17/17 01/17/17 11:30 15:00 15:16 19:00 Temp 97.7 97.6 97.7 97.6 Pulse 109 116 Resp 18 20 B/P 133/82 109/65 Pulse Ox 96 92 96 96 O2 Delivery Nasal Cannula Nasal Cannula Nasal Cannula Nasal Cannula O2 Flow Rate 3.5 3.0 3.5 3.0 01/17/17 01/17/17 01/17/17 01/18/17 19:29 20:00 23:00 03:00 Temp 97.9 97.9 97.9 97.9 Pulse 104 104 Resp 20 B/P 118/68 142/99 Pulse Ox 96 98 99 O2 Delivery Nasal Cannula Nasal Cannula Nasal Cannula Room Air O2 Flow Rate 3.5 3.0 01/18/17 01/18/17 01/18/17 01/18/17 07:00 07:44 08:41 08:42 Temp 97.7 97.7 Pulse 95 95 95 Resp 18 B/P 147/74 147/74 147/74 Pulse Ox 94 95 O2 Delivery Nasal Cannula Nasal Cannula O2 Flow Rate 3.0 3.5 Intake and Output 01/17/17 01/17/17 01/18/17 15:00 23:00 07:00 Intake Total 360 ml 1040 ml 900 ml Balance 360 ml 1040 ml 900 ml HELEN BARAJAS MD Jan 18, 2017 10:09
[2017-01-18 10:38] VITALS: BP 140/77
--- NOTE | 2017-01-18 11:04 | PDOC ---
PULMONARY PROGRESS NOTES Subjective feels better Vitals Vital Signs Date Time Temp Pulse Resp B/P Pulse Ox O2 Delivery O2 Flow Rate FiO2 01/18/17 10:38 97.7 117 18 140/77 91 Nasal Cannula 3.0 97.7 General: Alert, No acute distress HEENT: Other Lungs: Wheezing (faint ant) Cardiovascular: S1, S2 Abdomen: Soft, Non-tender Neuro Exam: Alert Extremities: No Edema Skin: Warm Labs Laboratory Tests Test 01/17/17 11:40 White Blood Count 21.7x10^3/uL (4.0-11.0) Red Blood Count 4.74x10^6/uL (3.50-5.40) Hemoglobin 13.3g/dL (12.0-15.5) Hematocrit 40.7% (36.0-47.0) Mean Corpuscular Volume 86fL (79-100) Mean Corpuscular Hemoglobin 28pg (25-35) Mean Corpuscular Hemoglobin Concent 33g/dL (31-37) Red Cell Distribution Width 14.8% (11.5-14.5) Platelet Count 428x10^3/uL (140-400) Laboratory Tests Test 01/17/17 11:40 White Blood Count 21.7x10^3/uL (4.0-11.0) Red Blood Count 4.74x10^6/uL (3.50-5.40) Hemoglobin 13.3g/dL (12.0-15.5) Hematocrit 40.7% (36.0-47.0) Mean Corpuscular Volume 86fL (79-100) Mean Corpuscular Hemoglobin 28pg (25-35) Mean Corpuscular Hemoglobin Concent 33g/dL (31-37) Red Cell Distribution Width 14.8% (11.5-14.5) Platelet Count 428x10^3/uL (140-400) Medications Active Scripts Medications Dose Route/Sig Days Date Category Dose Instructions Fish Oil 1,000 Mg Capsule ([place]-3 Fatty Acids/Fish Oil) 1 Each Capsule 2 Each PO DAILY 01/13/17 Reported Clarithromycin 500 Mg Tablet 1 Tab PO BID 01/13/17 Reported Mucinex Dm Er 600-30 Mg Tablet (Guaifenesin/Dextromethorphan) 1 Each Tab.er.12h 2 Tab PO PRN Q12HRS 01/13/17 Reported Ondansetron Hcl 4 Mg Tablet 1 Tab PO PRN Q4HRS 11/15/16 Reported Metoprolol Tartrate 25 Mg Tablet 1 Tab PO BID 11/15/16 Reported Senna (Sennosides) 8.8 Mg/5 Ml Syrup 8.8 Mg PO 11/15/16 Reported Prednisone 10 Mg Tablet 10 Mg PO DAILY 11/15/16 Reported taper started 01/11 at 40 mg/day Zolpidem Tartrate 10 Mg Tablet 1 Tab PO QHS 02/17/16 Reported Fish Oil 1,000 Mg Softgel ([place]-3 Fatty Acids/Fish Oil) 1 Each Capsule 1 Each PO DAILY 02/17/16 Reported Symbicort 160-4.5 Mcg Inhaler (Budesonide/Formoterol Fumarate) 10.2 Gm Hfa.aer.ad 2 Puff IH TID 02/17/16 Reported Zyrtec (Cetirizine Hcl) 10 Mg Tablet 1 Tab PO DAILY 02/17/16 Reported Daliresp (Roflumilast) 500 Mcg Tablet 1 Tab PO DAILY 02/17/16 Reported Isosorbide Mononitrate Er (Isosorbide Mononitrate) 60 Mg Tab.er.24h 1 Tab PO DAILY 02/17/16 Reported Nitrostat (Nitroglycerin) 0.4 Mg Tab.subl 0.4 Mg SL PRN Q5MIN PRN 11/20/13 Reported Duoneb 0.5 Mg-3 Mg/3 Ml Soln (Ipratropium/Albuterol Sulfate) 3 Ml Ampul.neb 3 Ml IH QID 11/20/13 Reported Advair 250-50 Diskus (Fluticasone/Salmeterol) 1 Each Disk.w.dev 1 Each IH BID 11/20/13 Reported Aspirin 81 Mg Tab.chew 81 Mg PO DAILY 11/20/13 Reported Simvastatin 40 Mg Tablet 40 Mg PO HS 11/20/13 Reported Combivent Respimat Inhal (Ipratropium/Albuterol Sulfate) 4 Gm Aer.w.adap 4 Gm IH QID 11/20/13 Reported Impression . 1. Acute on chronic respiratory failure, multifactorial, suspect secondary to acute diastolic heart failure , AECOPD and acute nonspecific bronchitis vs viral pneumonitis 2. Possible acute diastolic heart failure. 3. Abnormal x-ray compatible with bilateral pulmonary infiltrates compatible with acute pulmonary edema, other possibilities include atypical pneumonia i.e. mycoplasma or viral pneumonia 4. Tobacco dependence. 5. Coronary artery disease. 6. Diabetes. 7. Fever.resolved Plan . 1. clinically better 2. Lasix prn 3. doxycycline. 4. Nebs 5. Steroids. 6. Nebs 7. DVT and GI prophylaxis. 8. stable pulmonary brownlee for d/c. KENNEDY IRELAND MD Jan 18, 2017 11:04
--- NOTE | 2017-01-18 19:03 | DS ---
DATE OF DISCHARGE: 01/18/2017 DISCHARGE DIAGNOSIS: Chronic obstructive pulmonary disease exacerbation with acute respiratory failure. SECONDARY DIAGNOSES: Encephalopathy and leukocytosis. CHIEF COMPLAINT AND HISTORY OF PRESENT ILLNESS: This is a 71-year-old female who is well known to me from followup in the clinic as well as a recent hospitalization 2 months ago for COPD exacerbation. The patient presented to the ER by EMS on the day of admission with complaints of 24-48 hour history of increased shortness of breath, low-grade fevers and diaphoresis. The patient stated to the ER physician that she had been coughing [id number] sputum for one to two days, the patient did take some old prednisone as well as some old antibiotics at home. Upon examination in the Emergency Room, the patient was found to be hypoxic with a saturation of 83% and 86%. The patient was placed on BiPAP to assist with her respiratory failure. The patient was given one dose of Solu-Medrol 125 mg IV as well as adenosine 6 mg and a repeat of 12 mg secondary to her tachycardia. The patient was admitted to the hospital and admitted to ICU secondary to her acute respiratory failure. SUMMARY OF STAY: Upon admission, a chest x-ray showed mild prominent appearing bilateral interstitial lung markings probably mild congestive changes. The patient was started on Zosyn and vancomycin to cover for pneumonia. Chest x-ray was repeated on 01/14/2017 which revealed hyperinflation that suggested chronic obstructive pulmonary disease, mild basilar scarring versus atypical pneumonia. A CT was done on the same day that showed no acute abnormality. Pulmonology followed the patient along closely, p.o. doxycycline was started on 01/17/2017 and vancomycin and Zosyn were discontinued. The patient was also given IV Solu-Medrol throughout her stay. The patient gradually improved and the patient's encephalopathy improved. The patient's leukocytosis did gradually trend up as the patient continued to receive prednisone. The patient continued to require 3-4 liters of O2 per nasal cannula throughout her stay. She 6-minute walk was performed by respiratory therapy on 01/17/2017. The walk was discontinued after 2 minutes secondary to tachycardia and it was concluded by the respiratory therapist that the patient would need 3 liters of O2 at rest and 4 liters of O2 with exertion at home. The patient will be discharged with oxygen per their recommendations. DIET: Regular. ACTIVITY: As tolerated. DISCHARGE MEDICATIONS: Listed on the medical record and have been addressed. The patient will continue on a prednisone taper as well as doxycycline 100 mg p.o. b.i.d. x 10 days. FOLLOWUP: The patient is to follow up in our clinic in 1 week sooner if her signs and symptoms indicate. The patient stated understanding of the above discharge summary, denied questions and will follow up accordingly. HELEN BARAJAS MD DR: NITIN/lazaro JOB#: [id number] / [id number]
== END 2017-01-18 11:45 | disposition home or self-care (01) | DRG 291 ==
LOC: ER 05:52 → 1 WEST ICU 06:59 → 5 SOUTH 15:05
PROVIDERS: ADMIT Family Medicine; ATTEND Family Medicine
DX: I11.0 Hypertensive heart disease with heart failure (principal); J15.7 Pneumonia due to Mycoplasma pneumoniae; G93.40 Encephalopathy, unspecified; J96.21 Acute and chronic respiratory failure with hypoxia; J18.9 Pneumonia, unspecified organism; J44.1 Chronic obstructive pulmonary disease with (acute) exacerbation; J44.0 Chronic obstructive pulmonary disease with (acute) lower respiratory infection; I50.31 Acute diastolic (congestive) heart failure; E11.9 Type 2 diabetes mellitus without complications; M19.90 Unspecified osteoarthritis, unspecified site; E78.00 Pure hypercholesterolemia, unspecified; E78.5 Hyperlipidemia, unspecified; F17.210 Nicotine dependence, cigarettes, uncomplicated; F41.9 Anxiety disorder, unspecified; I25.10 Atherosclerotic heart disease of native coronary artery without angina pectoris; I27.2 Other secondary pulmonary hypertension; K21.9 Gastro-esophageal reflux disease without esophagitis; Z82.5 Family history of asthma and other chronic lower respiratory diseases; Z99.81 Dependence on supplemental oxygen; Z79.899 Other long term (current) drug therapy; Z79.82 Long term (current) use of aspirin
CPT/HCPCS: 36415; 36600; 71010; 71250; 80053; 80202; 81001; 82805; 83605; 83880; 84145; 84443; 84484; 85007; 85027; 87040; 87070; 87086; 87205; 87641; 87804; 93005; 93306; 94250; 94620; 94640; 94660; 94760; 96374; 96375; J0153; J1650; J1885; J1940; J2405; J2543; J2930; J3370; J3490; J7030; J7040; J7050; J7512; J7620; S0028; 99285-25

== ENCOUNTER 2017-04-17 16:44 | Inpatient (IN) | payer MEDICARE ==
[~2017-04-17] VITALS: Ht 154.9 cm; Wt 64.1 kg
[~2017-04-17 16:44] MED LIST changes: +ASPI-630 PO; -ASPI81TA2 PO; +CLAR500T PO; +DILT180C73 PO; +DOXY100T PO; +GUAI-107 PO; -OMEG1CAP16 PO; +OMEG1CAP27 PO; +OMEG1CAP6 PO; -ONDA-35 PO; +ONDA4TAB11 PO; +PRED20TA PO; -ROFL500T PO; +ROFL500T7 PO
[2017-04-17 18:00] VITALS: BP 148/86
[2017-04-17] MEDS ORDERED: IV 1/2 NORMAL SALINE 1,000 ML IV ONE (18:30)
[2017-04-17] MEDS ORDERED: METO25TA4 PO (18:54)
[2017-04-17] MEDS ORDERED: IPRA4AER IH (18:55)
[2017-04-17 19:00] VITALS: BP 141/83
[2017-04-17 19:09] LABS: BASO % 0 % (0-3); EOS % 0 % (0-3); HEMATOCRIT 37.9 % (36.0-47.0); HEMOGLOBIN 12.6 g/dL (12.0-15.5); LYMPH % 15 % (24-48); MEAN CORPUSCULAR HEMOGLOBIN 28 pg (25-35); MEAN CORPUSCULAR HGB CONC 33 g/dL (31-37); MEAN CORPUSCULAR VOLUME 84 fL (79-100); MONO % 6 % (0-9); NEUT % 79 % (31-73); PLATELET COUNT 357 x10^3/uL (140-400); RED BLOOD COUNT 4.51 x10^6/uL (3.50-5.40); RED CELL DISTRIBUTION WIDTH 15.4 % (11.5-14.5); WHITE BLOOD COUNT 6.8 x10^3/uL (4.0-11.0)
[2017-04-17 19:31] LABS: ALBUMIN 3.2 g/dL (3.4-5.0); ALBUMIN/GLOBULIN RATIO 0.8 (1.0-1.7); GFR 54.8; POTASSIUM 3.8 mmol/L (3.5-5.1); TOTAL BILIRUBIN 0.2 mg/dL (0.2-1.0); TOTAL PROTEIN 7.1 g/dL (6.4-8.2)
[2017-04-17] MEDS: IPRATRPIUM/ALBUTEROL 0.5/2.5MG 3 ML NEBU. IH SCH (20:21)
[2017-04-17] MEDS: BUDESONIDE 0.5 MG/2 ML NEBU. NEB SCH (20:21)
[2017-04-17] MEDS: SIMVASTATIN 40 MG TABLET. PO SCH (20:51)
[2017-04-17] MEDS: METOPROLOL TART IMMED RELEASE 25 MG TABLET. PO SCH (20:51)
[2017-04-17] MEDS ORDERED: NON FORMULARY ITEM (Budesonide/Formoterol Fumarate (Symbicort 160-4.5 Mcg Inhaler) 2 PUFF) IH SCH (21:00)
[2017-04-17] MEDS ORDERED: NON FORMULARY ITEM (Ipratropium/Albuterol Sulfate (Combivent Respimat Inhal) 2 INH) IH SCH (21:00)
[2017-04-17 21:27] LABS: BILIRUBIN,URINE NEGATIVE (NEG); GLUCOSE,URINE 100 mg/dL (NEG); NITRITE,URINE NEGATIVE (NEG); PROTEIN,URINE NEGATIVE (NEG-TRACE); UROBILINOGEN,URINE 0.2 mg/dL (0.2 mg/dL)
[2017-04-17 21:41] LABS: BACTERIA,URINE 0 /HPF (0-FEW); SQUAMOUS EPITHELIAL CELL,UR FEW /LPF
[2017-04-17] MEDS: methylPREDNISolone SOD SUCC PF 125 MG/2 ML VIAL. IV SCH (21:44)
[2017-04-17] MEDS: AZITHROMYCIN 500 MG in IV NORMAL SALINE 250ML 250 ML IV SCH (21:44)
[2017-04-17] MEDS: guaiFENesin DM 600/30MG 1 TAB TAB.ER.12H PO PRN (21:48)
[2017-04-17 23:00] VITALS: BP 147/90
[2017-04-17] MEDS: ZOLPIDEM 5 MG TABLET. PO PRN (23:44)
[2017-04-18 03:14] VITALS: BP 131/81
[2017-04-18] MEDS: methylPREDNISolone SOD SUCC PF 125 MG/2 ML VIAL. IV SCH ×3 (05:44→20:21)
[2017-04-18 07:00] VITALS: BP 153/76
[2017-04-18] MEDS: IPRATRPIUM/ALBUTEROL 0.5/2.5MG 3 ML NEBU. IH SCH ×4 (07:02→19:11)
[2017-04-18] MEDS: BUDESONIDE 0.5 MG/2 ML NEBU. NEB SCH ×2 (07:02→19:11)
--- NOTE | 2017-04-18 08:35 | PDOC ---
GENERAL General: vss and afebrile awake and alert. chest still wheezy but better air movement. heart slightly tachycardia. cxr in office yesterday without acute abnormality. await pulmonary opinion and continue same. Problems: VITAL SIGNS Vital Signs: Vital Signs Date Time Temp Pulse Resp B/P (MAP) Pulse Ox O2 Delivery O2 Flow Rate FiO2 04/18/17 07:03 95 Nasal Cannula 2.0 04/18/17 03:14 98.3 124 20 131/81 (98) 98.3 I & O I & O Intake and Output 04/18/17 07:00 Intake Total 300 ml Output Total 1200 ml Balance -900 ml Intake Oral 0 ml IV Total 300 ml Output Urine Total 1200 ml ALLERGIES Allergies: Allergies Coded Allergies Type Severity Reaction Last Updated Verified No Known Drug Allergies 02/17/16 No MEDS Medications: Current Medications Medications (Trade) Dose Ordered Sig/Home Start Time Stop Time Status Last Admin Dose Admin Albuterol/ Ipratropium (Duoneb) 3 ml RTQID 04/17/17 21:00 04/18/17 07:02 3 ML Aspirin (Children'S Aspirin) 81 mg DAILY 04/18/17 09:00 Azithromycin 500 mg/Sodium Chloride 250 ml @ 250 mls/hr Q24H 04/17/17 21:00 04/17/17 21:44 250 MLS/HR Budesonide (Pulmicort) 0.5 mg RTBID 04/17/17 20:00 04/18/17 07:02 0.5 MG Ceftriaxone Sodium 1 gm/ Sodium Chloride 50 ml @ 100 mls/hr Q24H 04/17/17 20:00 04/17/17 20:50 100 MLS/HR Cetirizine HCl (ZyrTEC) 10 mg DAILY 04/18/17 09:00 Fish Oil (Fish Oil) 1,000 mg DAILY 04/18/17 09:00 Guaifenesin (MUCINEX ER with DM) 2 tab PRN Q12HRS PRN 04/17/17 19:00 04/17/17 21:48 2 TAB Isosorbide Mononitrate (Imdur) 60 mg DAILY 04/18/17 09:00 Methylprednisolone Sodium Succinate (SOLU-Medrol 125MG VIAL) 80 mg Q8HRS 04/17/17 22:00 04/18/17 05:44 80 MG Metoprolol Tartrate (Lopressor) 25 mg BID 04/17/17 21:00 04/17/17 20:51 25 MG Non-Formulary Medication 2 inh QID 04/17/17 21:00 UNV Roflumilast (Daliresp) 500 mcg DAILY 04/18/17 09:00 Simvastatin (Zocor) 40 mg HS 04/17/17 21:00 04/17/17 20:51 40 MG Sodium Chloride 1,000 ml @ 100 mls/hr 1X ONCE 04/17/17 18:30 04/18/17 04:29 DC 04/17/17 20:49 100 MLS/HR Zolpidem Tartrate (Ambien) 5 mg PRN QHS PRN 04/17/17 19:15 04/17/17 23:44 5 MG LAB Lab: Laboratory Tests Test 04/17/17 18:55 04/17/17 21:17 White Blood Count 6.8 x10^3/uL (4.0-11.0) Red Blood Count 4.51 x10^6/uL (3.50-5.40) Hemoglobin 12.6 g/dL (12.0-15.5) Hematocrit 37.9 % (36.0-47.0) Mean Corpuscular Volume 84 fL (79-100) Mean Corpuscular Hemoglobin 28 pg (25-35) Mean Corpuscular Hemoglobin Concent 33 g/dL (31-37) Red Cell Distribution Width 15.4 % (11.5-14.5) Platelet Count 357 x10^3/uL (140-400) Neutrophils (%) (Auto) 79 % (31-73) Lymphocytes (%) (Auto) 15 % (24-48) Monocytes (%) (Auto) 6 % (0-9) Eosinophils (%) (Auto) 0 % (0-3) Basophils (%) (Auto) 0 % (0-3) Neutrophils # (Auto) 5.3 x10^3uL (1.8-7.7) Lymphocytes # (Auto) 1.0 x10^3/uL (1.0-4.8) Monocytes # (Auto) 0.4 x10^3/uL (0.0-1.1) Eosinophils # (Auto) 0.0 x10^3/uL (0.0-0.7) Basophils # (Auto) 0.0 x10^3/uL (0.0-0.2) Sodium Level 142 mmol/L (136-145) Potassium Level 3.8 mmol/L (3.5-5.1) Chloride Level 106 mmol/L (98-107) Carbon Dioxide Level 26 mmol/L (21-32) Anion Gap 10 (6-14) Blood Urea Nitrogen 23 mg/dL (7-20) Creatinine 1.0 mg/dL (0.6-1.0) Estimated GFR (Cockcroft-Gault) 54.8 BUN/Creatinine Ratio 23 (6-20) Glucose Level 212 mg/dL (70-99) Calcium Level 9.0 mg/dL (8.5-10.1) Total Bilirubin 0.2 mg/dL (0.2-1.0) Aspartate Amino Transf (AST/SGOT) 32 U/L (15-37) Alanine Aminotransferase (ALT/SGPT) 43 U/L (14-59) Alkaline Phosphatase 87 U/L (46-116) Total Protein 7.1 g/dL (6.4-8.2) Albumin 3.2 g/dL (3.4-5.0) Albumin/Globulin Ratio 0.8 (1.0-1.7) Urine Collection Type Unknown Urine Color Yellow Urine Clarity Clear Urine pH 6.0 Urine Specific [place] 1.020 Urine Protein Negative mg/dL (NEG-TRACE) Urine Glucose (UA) 100 mg/dL (NEG) Urine Ketones (Stick) Negative mg/dL (NEG) Urine Blood Negative (NEG) Urine Nitrite Negative (NEG) Urine Bilirubin Negative (NEG) Urine Urobilinogen Dipstick 0.2 mg/dL (0.2 mg/dL) Urine Leukocyte Esterase Negative (NEG) Urine RBC 1-2 /HPF (0-2) Urine WBC 1-4 /HPF (0-4) Urine Squamous Epithelial Cells Few /LPF Urine Bacteria 0 /HPF (0-FEW) HELEN BARAJAS MD Apr 18, 2017 08:35
[2017-04-18] MEDS: ROFLUMILAST 500 MCG TABLET. PO SCH (08:58)
[2017-04-18] MEDS: ASPIRIN CHEWABLE 81 MG TABLET. PO SCH (08:58)
[2017-04-18] MEDS: guaiFENesin DM 600/30MG 1 TAB TAB.ER.12H PO PRN ×2 (08:58→21:14)
[2017-04-18] MEDS: CETIRIZINE HCL 10 MG TABLET. PO SCH (08:58)
[2017-04-18] MEDS: OMEGA-3 FATTY ACIDS/FISH OIL 1,000 MG CAPSULE. PO SCH (08:58)
[2017-04-18] MEDS: ISOSORBIDE MONONITRATE ER 30 MG TAB.ER.24H PO SCH (08:59)
[2017-04-18] MEDS: METOPROLOL TART IMMED RELEASE 25 MG TABLET. PO SCH ×2 (09:00→20:21)
[2017-04-18 11:00] VITALS: BP 140/77
[2017-04-18 14:45] VITALS: BP 142/80
--- NOTE | 2017-04-18 16:08 | PDOC ---
PULMONARY PROGRESS NOTES Vitals Vital Signs Date Time Temp Pulse Resp B/P (MAP) Pulse Ox O2 Delivery O2 Flow Rate FiO2 04/18/17 14:45 96.4 114 18 142/80 (100) 97 Nasal Cannula 2.0 96.4 General: Alert, No acute distress HEENT: Other Lungs: Wheezing Cardiovascular: S1, S2 Abdomen: Soft, Non-tender Extremities: No Edema Labs Laboratory Tests Test 04/17/17 18:55 04/17/17 21:17 White Blood Count 6.8 x10^3/uL (4.0-11.0) Red Blood Count 4.51 x10^6/uL (3.50-5.40) Hemoglobin 12.6 g/dL (12.0-15.5) Hematocrit 37.9 % (36.0-47.0) Mean Corpuscular Volume 84 fL (79-100) Mean Corpuscular Hemoglobin 28 pg (25-35) Mean Corpuscular Hemoglobin Concent 33 g/dL (31-37) Red Cell Distribution Width 15.4 % (11.5-14.5) Platelet Count 357 x10^3/uL (140-400) Neutrophils (%) (Auto) 79 % (31-73) Lymphocytes (%) (Auto) 15 % (24-48) Monocytes (%) (Auto) 6 % (0-9) Eosinophils (%) (Auto) 0 % (0-3) Basophils (%) (Auto) 0 % (0-3) Neutrophils # (Auto) 5.3 x10^3uL (1.8-7.7) Lymphocytes # (Auto) 1.0 x10^3/uL (1.0-4.8) Monocytes # (Auto) 0.4 x10^3/uL (0.0-1.1) Eosinophils # (Auto) 0.0 x10^3/uL (0.0-0.7) Basophils # (Auto) 0.0 x10^3/uL (0.0-0.2) Sodium Level 142 mmol/L (136-145) Potassium Level 3.8 mmol/L (3.5-5.1) Chloride Level 106 mmol/L (98-107) Carbon Dioxide Level 26 mmol/L (21-32) Anion Gap 10 (6-14) Blood Urea Nitrogen 23 mg/dL (7-20) Creatinine 1.0 mg/dL (0.6-1.0) Estimated GFR (Cockcroft-Gault) 54.8 BUN/Creatinine Ratio 23 (6-20) Glucose Level 212 mg/dL (70-99) Calcium Level 9.0 mg/dL (8.5-10.1) Total Bilirubin 0.2 mg/dL (0.2-1.0) Aspartate Amino Transf (AST/SGOT) 32 U/L (15-37) Alanine Aminotransferase (ALT/SGPT) 43 U/L (14-59) Alkaline Phosphatase 87 U/L (46-116) Total Protein 7.1 g/dL (6.4-8.2) Albumin 3.2 g/dL (3.4-5.0) Albumin/Globulin Ratio 0.8 (1.0-1.7) Urine Collection Type Unknown Urine Color Yellow Urine Clarity Clear Urine pH 6.0 Urine Specific [place] 1.020 Urine Protein Negative mg/dL (NEG-TRACE) Urine Glucose (UA) 100 mg/dL (NEG) Urine Ketones (Stick) Negative mg/dL (NEG) Urine Blood Negative (NEG) Urine Nitrite Negative (NEG) Urine Bilirubin Negative (NEG) Urine Urobilinogen Dipstick 0.2 mg/dL (0.2 mg/dL) Urine Leukocyte Esterase Negative (NEG) Urine RBC 1-2 /HPF (0-2) Urine WBC 1-4 /HPF (0-4) Urine Squamous Epithelial Cells Few /LPF Urine Bacteria 0 /HPF (0-FEW) Laboratory Tests Test 04/17/17 18:55 04/17/17 21:17 White Blood Count 6.8 x10^3/uL (4.0-11.0) Red Blood Count 4.51 x10^6/uL (3.50-5.40) Hemoglobin 12.6 g/dL (12.0-15.5) Hematocrit 37.9 % (36.0-47.0) Mean Corpuscular Volume 84 fL (79-100) Mean Corpuscular Hemoglobin 28 pg (25-35) Mean Corpuscular Hemoglobin Concent 33 g/dL (31-37) Red Cell Distribution Width 15.4 % (11.5-14.5) Platelet Count 357 x10^3/uL (140-400) Neutrophils (%) (Auto) 79 % (31-73) Lymphocytes (%) (Auto) 15 % (24-48) Monocytes (%) (Auto) 6 % (0-9) Eosinophils (%) (Auto) 0 % (0-3) Basophils (%) (Auto) 0 % (0-3) Neutrophils # (Auto) 5.3 x10^3uL (1.8-7.7) Lymphocytes # (Auto) 1.0 x10^3/uL (1.0-4.8) Monocytes # (Auto) 0.4 x10^3/uL (0.0-1.1) Eosinophils # (Auto) 0.0 x10^3/uL (0.0-0.7) Basophils # (Auto) 0.0 x10^3/uL (0.0-0.2) Sodium Level 142 mmol/L (136-145) Potassium Level 3.8 mmol/L (3.5-5.1) Chloride Level 106 mmol/L (98-107) Carbon Dioxide Level 26 mmol/L (21-32) Anion Gap 10 (6-14) Blood Urea Nitrogen 23 mg/dL (7-20) Creatinine 1.0 mg/dL (0.6-1.0) Estimated GFR (Cockcroft-Gault) 54.8 BUN/Creatinine Ratio 23 (6-20) Glucose Level 212 mg/dL (70-99) Calcium Level 9.0 mg/dL (8.5-10.1) Total Bilirubin 0.2 mg/dL (0.2-1.0) Aspartate Amino Transf (AST/SGOT) 32 U/L (15-37) Alanine Aminotransferase (ALT/SGPT) 43 U/L (14-59) Alkaline Phosphatase 87 U/L (46-116) Total Protein 7.1 g/dL (6.4-8.2) Albumin 3.2 g/dL (3.4-5.0) Albumin/Globulin Ratio 0.8 (1.0-1.7) Urine Collection Type Unknown Urine Color Yellow Urine Clarity Clear Urine pH 6.0 Urine Specific [place] 1.020 Urine Protein Negative mg/dL (NEG-TRACE) Urine Glucose (UA) 100 mg/dL (NEG) Urine Ketones (Stick) Negative mg/dL (NEG) Urine Blood Negative (NEG) Urine Nitrite Negative (NEG) Urine Bilirubin Negative (NEG) Urine Urobilinogen Dipstick 0.2 mg/dL (0.2 mg/dL) Urine Leukocyte Esterase Negative (NEG) Urine RBC 1-2 /HPF (0-2) Urine WBC 1-4 /HPF (0-4) Urine Squamous Epithelial Cells Few /LPF Urine Bacteria 0 /HPF (0-FEW) Medications Active Scripts Medications Dose Route/Sig Max Daily Dose Days Date Category Combivent Respimat Inhal (Ipratropium/Albuterol Sulfate) 4 Gm Aer.w.adap 2 Inh IH QID 04/17/17 Reported Metoprolol Tartrate 25 Mg Tablet 25 Mg PO BID 04/17/17 Reported Fish Oil 1,000 Mg Capsule ([place]-3 Fatty Acids/Fish Oil) 1 Each Capsule 2 Each PO DAILY 01/13/17 Reported Mucinex Dm Er 600-30 Mg Tablet (Guaifenesin/Dextromethorphan) 1 Each Tab.er.12h 2 Tab PO PRN Q12HRS 01/13/17 Reported Zolpidem Tartrate 10 Mg Tablet 1 Tab PO QHS 02/17/16 Reported Symbicort 160-4.5 Mcg Inhaler (Budesonide/Formoterol Fumarate) 10.2 Gm Hfa.aer.ad 2 Puff IH TID 02/17/16 Reported Zyrtec (Cetirizine Hcl) 10 Mg Tablet 1 Tab PO DAILY 02/17/16 Reported Daliresp (Roflumilast) 500 Mcg Tablet 1 Tab PO DAILY 02/17/16 Reported Isosorbide Mononitrate Er (Isosorbide Mononitrate) 60 Mg Tab.er.24h 1 Tab PO DAILY 02/17/16 Reported Duoneb 0.5 Mg-3 Mg/3 Ml Soln (Ipratropium/Albuterol Sulfate) 3 Ml Ampul.neb 3 Ml IH QID 11/20/13 Reported Aspirin 81 Mg Tab.chew 81 Mg PO DAILY 11/20/13 Reported Simvastatin 40 Mg Tablet 40 Mg PO HS 11/20/13 Reported Impression . FULL NOTE DICTATED AECOPD ADD FLONASE NEEDS MORE TIME TO IMPROVE FAILED OUTPT TREATMENT WAS SEEN IN OFFICE ON MULTIPLE OCCASION DURING THE PAST WEEK GINGER FARRELL MD Apr 18, 2017 16:08
[2017-04-18] MEDS: FLUTICASONE 50MCG/NASAL SPRAY 16GM BOTTLE. NS SCH (16:53)
--- NOTE | 2017-04-18 17:43 | HP ---
ADMIT DATE: 04/17/2017 CHIEF COMPLAINT AND HISTORY OF PRESENT ILLNESS: This is a 72-year-old white female who is well known to me from followup in the office. The patient was seen on Saturday, the , with some exacerbation of COPD. She was started on prednisone taper as well as Levaquin, thought she did better on Saturday, the , but was worse by the . Upon seeing her in the office, her O2 sat was around 89% to 90%, pulse was 120. She was diffusely wheezy with decreased breath sounds. Chest x-ray showed no acute change in the office. ____ anticholinergic was added to her regimen with instructions if she was not better as the day went on to call for admission, which her did late that afternoon and she was admitted to the hospital. PAST MEDICAL HISTORY: Remarkable for the COPD, for which she has had exacerbations and admitted for the same in the past. She has a history of atherosclerotic heart disease, hyperlipidemia, hypertension, insomnia. MEDICATIONS: Brought with the patient, listed on the computer and have been addressed. ALLERGIES: She has no known drug allergies. SOCIAL HISTORY: She continues to smoke, although less level than prior. Drinks socially. Does not use drugs. , lives at home with her . FAMILY HISTORY: Noncontributory. REVIEW OF SYSTEMS: As mentioned above, plus she has been doing a lot of blowing from her nose, copious amounts of white snot. PHYSICAL EXAMINATION: GENERAL: She is well-developed, well-nourished white female who appears even at baseline or at rest, a little short of breath. VITAL SIGNS: Stable. Pulse is 120, respiratory rate is ____ 18. HEAD, EYES, EARS, NOSE AND THROAT: Unremarkable. NECK: Supple without adenopathy or thyromegaly. CHEST: Reveals decreased breath sounds bilaterally with bilateral wheezes. HEART: Tachycardic, regular without S3, S4, or murmur. ABDOMEN: Soft, nontender, without hepatosplenomegaly or masses. EXTREMITIES: Without cyanosis, clubbing or edema. NEUROLOGIC: She is intact. IMPRESSION: Exacerbation of chronic obstructive pulmonary disease with failed outpatient treatment. PLAN: The patient has been admitted. Pulmonary toilet, IV fluids, IV antibiotics, IV steroids, Pulmonary consultation will be obtained and the patient will be monitored, managed and treated appropriately. HELEN BARAJAS MD DR: Jer JOB#: [id number] / [id number]
[2017-04-18 19:00] VITALS: BP 143/76
[2017-04-18] MEDS: SIMVASTATIN 40 MG TABLET. PO SCH (20:21)
[2017-04-18] MEDS: AZITHROMYCIN 500 MG in IV NORMAL SALINE 250ML 250 ML IV SCH (21:09)
[2017-04-18] MEDS: ZOLPIDEM 5 MG TABLET. PO PRN (21:14)
[2017-04-18 23:00] VITALS: BP 144/80
[2017-04-19 03:00] VITALS: BP 127/84
--- NOTE | 2017-04-19 05:22 | CONS ---
DATE OF CONSULTATION: 04/18/2017 ATTENDING PHYSICIAN: Vladimir Welsh MD. DICTATING PHYSICIAN: Ginger Farrell MD REASON FOR CONSULTATION: The patient is seen in pulmonary consultation at the request of Dr. Welsh for goqsr-qz-zjaeblx respiratory failure, failed outpatient treatment. The patient was seen in the office on three separate occasions. HISTORY OF PRESENT ILLNESS: The patient is a 72-year-old female that found in last week. She noticed some increasing shortness of breath. This past weekend, she noted increasing nasal stuffiness and wheezing, unable to tolerate activities of daily living. Last week, she was seen in Dr. Welsh's office and was treated for acute exacerbation. She returned on Saturday with no significant improvement. Then, two days ago, she had some increasing shortness of breath, unable to tolerate activities of daily living; as a consequence, the patient was admitted. She is currently not smoking. She normally wears oxygen at home at 2 liters. She has a cough, mostly nonproductive. She is having some sinus drainage. She is currently ____ Zyrte for allergies. PAST MEDICAL HISTORY: 1. Remarkable for chronic respiratory failure. 2. COPD. 3. Tobacco use, quit sometime ago. 4. Type 2 diabetes. 5. Coronary artery disease. 6. Previous influenza. PAST SURGICAL HISTORY: None. FAMILY HISTORY: Brother with COPD. MEDICATIONS: List was reviewed. Please see the MRAD. HOME MEDICATIONS: List was likewise reviewed. Please see the MRAD. REVIEW OF SYSTEMS: As indicated above, otherwise, a 10-point system was reviewed and negative. PHYSICAL EXAMINATION: GENERAL: The patient was lying in bed in no significant respiratory distress, currently on 2 liters of oxygen supplementation. VITAL SIGNS: O2 saturation greater than 92%. HEENT: Eyes, the sclerae were nonicteric. NECK: Jugular venous distention was not elevated. No lymphadenopathy. CHEST: Full expansion. LUNGS: Very poor airway flow with no wheezes. CARDIOVASCULAR: Regular rate and rhythm with S1, S2, no S3. ABDOMEN: Soft, nontender, nondistended. EXTREMITIES: No clubbing, cyanosis. Minimal edema. NEUROLOGIC: The patient was awake, alert, following commands. A detailed neuro exam was not performed. LABORATORY DATA: Reviewed. White count was normal. Hemoglobin and hematocrit were noted. Electrolytes were noted. BUN and creatinine was normal and was noted. UA was noted. IMAGING STUDIES: Chest x-ray is pending. IMPRESSION: 1. Wwwfs-ak-jeljygz respiratory failure. 2. Acute exacerbation of chronic obstructive pulmonary disease. 3. Acute nonspecific bronchitis. 4. Suspect allergies contributing to her exacerbation along with elevated temperatures ____. 5. Type 2 diabetes. PLAN: 1. Concur with current medical management, patient failed outpatient treatment; we will continue IV Solu-Medrol. 2. Add Flonase. 3. Continue Zyrtec. 4. Continue nebulized treatments. 5. Empiric antibiotics. 6. Nebulized Pulmicort. Dr. Welsh, I do appreciate the privilege in sharing in the patient's care. GINGER FARRELL MD DR: MANDA/nts JOB#: [id number] / [id number]
[2017-04-19] MEDS: methylPREDNISolone SOD SUCC PF 125 MG/2 ML VIAL. IV SCH ×3 (06:11→23:11)
[2017-04-19 07:00] VITALS: BP 160/97
[2017-04-19] MEDS: IPRATRPIUM/ALBUTEROL 0.5/2.5MG 3 ML NEBU. IH SCH ×4 (07:33→19:18)
[2017-04-19] MEDS: BUDESONIDE 0.5 MG/2 ML NEBU. NEB SCH ×2 (07:34→19:18)
--- NOTE | 2017-04-19 08:11 | PDOC ---
GENERAL General: vss and afebrile. still quite tachycardic with any sort of physical activity. chest with little better air movement but still extremely wheezy. heart tachy at 110 currently. continue present treatment and await clearing. Problems: VITAL SIGNS Vital Signs: Vital Signs Date Time Temp Pulse Resp B/P (MAP) Pulse Ox O2 Delivery O2 Flow Rate FiO2 04/19/17 07:35 96 Nasal Cannula 2.0 04/19/17 03:00 97.8 108 20 127/84 (98) 97.8 I & O I & O Intake and Output 04/19/17 07:00 Intake Total 840 ml Output Total 600 ml Balance 240 ml Intake Oral 840 ml Output Urine Total 600 ml # Voids 3 # Bowel Movements 1 ALLERGIES Allergies: Allergies Coded Allergies Type Severity Reaction Last Updated Verified No Known Drug Allergies 02/17/16 No MEDS Medications: Current Medications Medications (Trade) Dose Ordered Sig/Home Start Time Stop Time Status Last Admin Dose Admin Albuterol/ Ipratropium (Duoneb) 3 ml RTQID 04/17/17 21:00 04/19/17 07:33 3 ML Aspirin (Children'S Aspirin) 81 mg DAILY 04/18/17 09:00 04/18/17 08:58 81 MG Azithromycin 500 mg/Sodium Chloride 250 ml @ 250 mls/hr Q24H 04/17/17 21:00 04/18/17 21:09 250 MLS/HR Budesonide (Pulmicort) 0.5 mg RTBID 04/17/17 20:00 04/19/17 07:34 0.5 MG Ceftriaxone Sodium 1 gm/ Sodium Chloride 50 ml @ 100 mls/hr Q24H 04/17/17 20:00 04/18/17 20:20 100 MLS/HR Cetirizine HCl (ZyrTEC) 10 mg DAILY 04/18/17 09:00 04/18/17 08:58 10 MG Fish Oil (Fish Oil) 1,000 mg DAILY 04/18/17 09:00 04/18/17 08:58 1,000 MG Fluticasone Propionate (Flonase) 2 spray DAILY 04/18/17 16:30 04/18/17 16:53 2 SPRAY Guaifenesin (MUCINEX ER with DM) 2 tab PRN Q12HRS PRN 04/17/17 19:00 6/8/17 21:14 2 TAB Isosorbide Mononitrate (Imdur) 60 mg DAILY 04/18/17 09:00 04/18/17 08:59 60 MG Methylprednisolone Sodium Succinate (SOLU-Medrol 125MG VIAL) 80 mg Q8HRS 04/17/17 22:00 04/19/17 06:11 80 MG Metoprolol Tartrate (Lopressor) 12.5 mg BID 04/18/17 21:00 04/18/17 20:21 12.5 MG Non-Formulary Medication 2 inh QID 04/17/17 21:00 UNV Roflumilast (Daliresp) 500 mcg DAILY 04/18/17 09:00 04/18/17 08:58 500 MCG Simvastatin (Zocor) 40 mg HS 04/17/17 21:00 04/18/17 20:21 40 MG Sodium Chloride 1,000 ml @ 100 mls/hr 1X ONCE 04/17/17 18:30 04/18/17 04:29 DC 04/17/17 20:49 100 MLS/HR Zolpidem Tartrate (Ambien) 5 mg PRN QHS PRN 04/17/17 19:15 04/18/17 21:14 5 MG HELEN BARAJAS MD Apr 19, 2017 08:10
[2017-04-19] MEDS: ASPIRIN CHEWABLE 81 MG TABLET. PO SCH (08:44)
[2017-04-19] MEDS: OMEGA-3 FATTY ACIDS/FISH OIL 1,000 MG CAPSULE. PO SCH (08:44)
[2017-04-19] MEDS: CETIRIZINE HCL 10 MG TABLET. PO SCH (08:44)
[2017-04-19] MEDS: guaiFENesin DM 600/30MG 1 TAB TAB.ER.12H PO PRN (08:44)
[2017-04-19] MEDS: FLUTICASONE 50MCG/NASAL SPRAY 16GM BOTTLE. NS SCH (08:44)
[2017-04-19] MEDS: ROFLUMILAST 500 MCG TABLET. PO SCH (08:44)
[2017-04-19] MEDS: ISOSORBIDE MONONITRATE ER 30 MG TAB.ER.24H PO SCH (08:45)
[2017-04-19] MEDS: METOPROLOL TART IMMED RELEASE 25 MG TABLET. PO SCH ×2 (08:45→21:25)
[2017-04-19 11:00] VITALS: BP 156/94
--- NOTE | 2017-04-19 12:55 | PDOC ---
PULMONARY PROGRESS NOTES Subjective SEVERELY SOA IN AM Vitals Vital Signs Date Time Temp Pulse Resp B/P (MAP) Pulse Ox O2 Delivery O2 Flow Rate FiO2 04/19/17 11:25 Nasal Cannula 2.0 04/19/17 11:00 97.8 64 16 156/94 (114) 100 97.8 ROS: No Nausea, No Chest Pain, No Abdominal Pain, No Increase Cough General: Alert HEENT: Other Lungs: Wheezing Cardiovascular: S1, S2 Abdomen: Soft, Non-tender Neuro Exam: Alert Extremities: No Edema Skin: Warm Labs Laboratory Tests Test 04/17/17 18:55 04/17/17 21:17 White Blood Count 6.8 x10^3/uL (4.0-11.0) Red Blood Count 4.51 x10^6/uL (3.50-5.40) Hemoglobin 12.6 g/dL (12.0-15.5) Hematocrit 37.9 % (36.0-47.0) Mean Corpuscular Volume 84 fL (79-100) Mean Corpuscular Hemoglobin 28 pg (25-35) Mean Corpuscular Hemoglobin Concent 33 g/dL (31-37) Red Cell Distribution Width 15.4 % (11.5-14.5) Platelet Count 357 x10^3/uL (140-400) Neutrophils (%) (Auto) 79 % (31-73) Lymphocytes (%) (Auto) 15 % (24-48) Monocytes (%) (Auto) 6 % (0-9) Eosinophils (%) (Auto) 0 % (0-3) Basophils (%) (Auto) 0 % (0-3) Neutrophils # (Auto) 5.3 x10^3uL (1.8-7.7) Lymphocytes # (Auto) 1.0 x10^3/uL (1.0-4.8) Monocytes # (Auto) 0.4 x10^3/uL (0.0-1.1) Eosinophils # (Auto) 0.0 x10^3/uL (0.0-0.7) Basophils # (Auto) 0.0 x10^3/uL (0.0-0.2) Sodium Level 142 mmol/L (136-145) Potassium Level 3.8 mmol/L (3.5-5.1) Chloride Level 106 mmol/L (98-107) Carbon Dioxide Level 26 mmol/L (21-32) Anion Gap 10 (6-14) Blood Urea Nitrogen 23 mg/dL (7-20) Creatinine 1.0 mg/dL (0.6-1.0) Estimated GFR (Cockcroft-Gault) 54.8 BUN/Creatinine Ratio 23 (6-20) Glucose Level 212 mg/dL (70-99) Calcium Level 9.0 mg/dL (8.5-10.1) Total Bilirubin 0.2 mg/dL (0.2-1.0) Aspartate Amino Transf (AST/SGOT) 32 U/L (15-37) Alanine Aminotransferase (ALT/SGPT) 43 U/L (14-59) Alkaline Phosphatase 87 U/L (46-116) Total Protein 7.1 g/dL (6.4-8.2) Albumin 3.2 g/dL (3.4-5.0) Albumin/Globulin Ratio 0.8 (1.0-1.7) Urine Collection Type Unknown Urine Color Yellow Urine Clarity Clear Urine pH 6.0 Urine Specific [place] 1.020 Urine Protein Negative mg/dL (NEG-TRACE) Urine Glucose (UA) 100 mg/dL (NEG) Urine Ketones (Stick) Negative mg/dL (NEG) Urine Blood Negative (NEG) Urine Nitrite Negative (NEG) Urine Bilirubin Negative (NEG) Urine Urobilinogen Dipstick 0.2 mg/dL (0.2 mg/dL) Urine Leukocyte Esterase Negative (NEG) Urine RBC 1-2 /HPF (0-2) Urine WBC 1-4 /HPF (0-4) Urine Squamous Epithelial Cells Few /LPF Urine Bacteria 0 /HPF (0-FEW) Medications Active Scripts Medications Dose Route/Sig Max Daily Dose Days Date Category Combivent Respimat Inhal (Ipratropium/Albuterol Sulfate) 4 Gm Aer.w.adap 2 Inh IH QID 04/17/17 Reported Metoprolol Tartrate 25 Mg Tablet 25 Mg PO BID 04/17/17 Reported Fish Oil 1,000 Mg Capsule ([place]-3 Fatty Acids/Fish Oil) 1 Each Capsule 2 Each PO DAILY 01/13/17 Reported Mucinex Dm Er 600-30 Mg Tablet (Guaifenesin/Dextromethorphan) 1 Each Tab.er.12h 2 Tab PO PRN Q12HRS 01/13/17 Reported Zolpidem Tartrate 10 Mg Tablet 1 Tab PO QHS 02/17/16 Reported Symbicort 160-4.5 Mcg Inhaler (Budesonide/Formoterol Fumarate) 10.2 Gm Hfa.aer.ad 2 Puff IH TID 02/17/16 Reported Zyrtec (Cetirizine Hcl) 10 Mg Tablet 1 Tab PO DAILY 02/17/16 Reported Daliresp (Roflumilast) 500 Mcg Tablet 1 Tab PO DAILY 02/17/16 Reported Isosorbide Mononitrate Er (Isosorbide Mononitrate) 60 Mg Tab.er.24h 1 Tab PO DAILY 02/17/16 Reported Duoneb 0.5 Mg-3 Mg/3 Ml Soln (Ipratropium/Albuterol Sulfate) 3 Ml Ampul.neb 3 Ml IH QID 11/20/13 Reported Aspirin 81 Mg Tab.chew 81 Mg PO DAILY 11/20/13 Reported Simvastatin 40 Mg Tablet 40 Mg PO HS 11/20/13 Reported Impression . 1. Vcqbe-ci-ezecbha respiratory failure. 2. Acute exacerbation of chronic obstructive pulmonary disease. 3. Acute nonspecific bronchitis. 4. Suspect allergies contributing to her exacerbation along with elevated Temperatures 5. Type 2 diabetes. Plan . SLOW TO IMPROVE D/C ALL CAFFEINE POSSIBLE MICRO ASPIRATION WITH GERD D/C SMOKING 1. Concur with current medical management, patient failed outpatient treatment , we will continue IV Solu-Medrol. 2. Add Flonase. 3. Continue Zyrtec. 4. Continue nebulized treatments. 5. Empiric antibiotics. 6. Nebulized Pulmicort. GINGER FARRELL MD Apr 19, 2017 12:55
[2017-04-19 15:00] VITALS: BP 143/73
[2017-04-19 19:00] VITALS: BP 152/78
[2017-04-19] MEDS: SIMVASTATIN 40 MG TABLET. PO SCH (21:25)
[2017-04-19] MEDS: AZITHROMYCIN 500 MG in IV NORMAL SALINE 250ML 250 ML IV SCH (21:25)
[2017-04-19 23:19] VITALS: BP 165/85
[2017-04-20] MEDS: ZOLPIDEM 5 MG TABLET. PO PRN ×2 (00:42→23:45)
--- NOTE | 2017-04-20 05:11 | EKG ---
[facility] [address] [place] [address] Test Date: 2017-04-20 Test Time: 05:01:33 Pat Name: DARRION MAYER Department: Room: 510 Gender: F [employer] Inspector: DENNY : 1945 Requested By: HELEN BARAJAS Order Number: [id number] Reading MD: Dolores Preciado Measurements Intervals Pearson Rate: 143 P: 80 CA: 62 QRS: 36 QRSD: 72 T: -17 QT: 324 QTc: 506 Interpretive Statements PROBABLE ATRIAL FLUTTER ABNORMAL ECG RI6.01 Compared to ECG 01/13/2017 05:45:59 Atrial abnormality now present Electronically Signed On 04-20-2017 19:44:37 CDT by Dolores Preciado
[2017-04-20] MEDS ORDERED: ALBUTEROL SULFATE 2.5 MG/3 ML NEBU. NEB PRN (05:30)
[2017-04-20] MEDS ORDERED: DIGOXIN IV 500 MCG/2 ML AMPUL. IV ONE (05:45)
[2017-04-20 07:00] VITALS: BP 168/83
[2017-04-20] MEDS: methylPREDNISolone SOD SUCC PF 125 MG/2 ML VIAL. IV SCH ×3 (07:19→21:20)
[2017-04-20] MEDS: BUDESONIDE 0.5 MG/2 ML NEBU. NEB SCH ×2 (07:27→20:05)
[2017-04-20] MEDS: IPRATRPIUM/ALBUTEROL 0.5/2.5MG 3 ML NEBU. IH SCH ×4 (07:27→20:05)
--- NOTE | 2017-04-20 08:01 | PDOC2 ---
CARDIAC CONSULT DATE OF CONSULT Date of Consult DATE: 04/20/17 TIME: 07:55 REASON FOR CONSULT Reason for Consult: SVT REFERRING PHYSICIAN Referring Physician: Dr. Welsh SOURCE Source: Chart review, Patient HISTORY OF PRESENT ILLNESS HISTORY OF PRESENT ILLNESS This is a 72 yo female, with a history of COPD with ongoing tobaccoism and chronic tachycardiac, who presented with complaints of shortness of breath. Patient reports she has been feeling really well this past couple of months since discharge from the hospital in January when she was treated for AE of COPD. On Saturday went out and celebrated her 72th birthday; did well. On Saturday, had family in; started having some shortness of breath. Reports having a "bad air day" with the humidity. Saw Dr. Welsh on Saturday and was started on prednisone and antibiotic therapy. Follow-up on Saturday with no improvement. CXR reportedly without acute changes. Patient started and anticholinergics and was to call if her PCP if symptoms did not improve. apparently called and decision was made to admit to the hospital since outpatient management has failed to improved symptoms. Consult obtained for SVT; patient reports "HR is always up so I don't know why they are concerned." Patient previously seen by our service in january for similar presentation. Metoprolol was discontinued due to wheezing and Cardizem was initiated. Patient reports she did not respond well to the medication and it was discontinued with resumption of Metoprolol. Early this morning, patient was up in the bathroom cleaning up without oxygen. HR went into the 150's and was sustained. Digoxin 250mcg IV was administered with good response. PAST MEDICAL HISTORY Cardiovascular: HTN, Hyperlipidemia, Other (tachycardia ) Pulmonary: COPD, Pneumonia GI: GERD Heme/Onc: No pertinent hx Hepatobiliary: No pertinent hx Psych: Anxiety Musculoskeletal: Osteoarthritis Infectious disease: No pertinent hx ENT: No pertinent hx Renal/: No pertinent hx Endocrine: No pertinent hx Dermatology: No pertinent hx PAST SURGICAL HISTORY Past Surgical History: Cataract Removal FAMILY HISTORY Family History: Other (noncontributory ) SOCIAL HISTORY Smoke: <1 pack per day ALCOHOL: social Drugs: None Lives: with Family CURRENT MEDICATIONS CURRENT MEDICATIONS Current Medications Medications (Trade) Dose Ordered Sig/Home Route PRN Reason Start Time Stop Time Status Last Admin Dose Admin Digoxin (Lanoxin) 250 mcg 1X ONCE IV 04/20/17 05:45 04/20/17 05:46 DC 04/20/17 05:28 ALLERGIES ALLERGIES: Coded Allergies: No Known Drug Allergies (Unverified , 02/17/16) ROS Review of System 14 point ROS conducted with pertinent positives noted above in HPI. PHYSICAL EXAM PHYSICAL EXAM General: Alert, Oriented X3, Cooperative, mild distress HEENT: Mucous membr. moist/pink Lungs: Other (bilateral fine exp wheezes) Heart: Normal S1, Normal S2, No murmurs, Other (tele: ST) Abdomen: Soft, No tenderness Extremities: No edema, Normal pulses Skin: No significant lesion Neuro: Normal speech, Sensation intact Psych/Mental Status: Mental status NL, Mood NL MUSCULOSKELETAL: Osteoarthritic changes both hands VITALS VITALS Vital Signs Date Time Temp Pulse Resp B/P (MAP) Pulse Ox O2 Delivery O2 Flow Rate FiO2 04/20/17 07:30 97 Nasal Cannula 2.0 04/20/17 05:28 157 169/107 04/19/17 23:19 97.7 18 97.7 ECHOCARDIOGRAM ECHOCARDIOGRAM <Conclusion> The left ventricular systolic function is normal. The Ejection Fraction is 65-70%. There is normal LV segmental wall motion. Transmitral Doppler flow pattern is Grade I-abnormal relaxation pattern. Trace mitral regurgitation. There is no evidence of significant pericardial effusion. DATE: 01/14/17 1522 STRESS TEST STRESS TEST Conclusion 1. Regadenoson cardioisotope stress test did not show any evidence of ischemia or infarct. 2. Normal left ventricular systolic function with ejection fraction calculated at >80%. 3. Low risk for cardiac events. DATE: 02/13/16 1143 ASSESSMENT/PLAN ASSESSMENT/PLAN 1. Tachyarrhythmia with h/o chronic tachycardia episode of SVT following exertional activity without oxygen secondary to hypoxia/AE COPD responded well to Dig. Presently ST with rate 110's continue BB for now unless wheezing progresses. Will use Dig IV PRN. Use O2 with activity; d/w patient and RN 2. Acute on chronic respiratory failure with AE COPD with continued tobaccoism per pulm 3. Hypertension labile; will add NIYAH 4. Hyperlipidemia LDL= 56 (11/27) 5. Tobaccoism cessation discussed and encouraged Problems: ANATOLY STEINBERG APRN Apr 20, 2017 08:01
[2017-04-20] MEDS: OMEGA-3 FATTY ACIDS/FISH OIL 1,000 MG CAPSULE. PO SCH (08:45)
[2017-04-20] MEDS: ASPIRIN CHEWABLE 81 MG TABLET. PO SCH (08:45)
[2017-04-20] MEDS: CETIRIZINE HCL 10 MG TABLET. PO SCH (08:46)
[2017-04-20] MEDS: ISOSORBIDE MONONITRATE ER 30 MG TAB.ER.24H PO SCH (08:46)
[2017-04-20] MEDS: ROFLUMILAST 500 MCG TABLET. PO SCH (08:47)
[2017-04-20] MEDS: METOPROLOL TART IMMED RELEASE 25 MG TABLET. PO SCH ×2 (08:47→21:18)
[2017-04-20] MEDS: FLUTICASONE 50MCG/NASAL SPRAY 16GM BOTTLE. NS SCH (08:52)
[2017-04-20] MEDS: guaiFENesin DM 600/30MG 1 TAB TAB.ER.12H PO PRN (08:53)
--- NOTE | 2017-04-20 09:29 | PDOC ---
PULMONARY PROGRESS NOTES Subjective on 02, has sob, cough, nasal congestion, no pain Vitals Vital Signs Date Time Temp Pulse Resp B/P (MAP) Pulse Ox O2 Delivery O2 Flow Rate FiO2 04/20/17 08:47 105 168/83 04/20/17 07:35 97 Nasal Cannula 2.0 04/20/17 07:00 96.1 20 96.1 ROS: No Nausea, No Chest Pain, No Abdominal Pain, No Increase Cough General: Alert HEENT: Other (nc at perrl nose inflamed mucosa) Lungs: Wheezing Cardiovascular: S1, S2 Abdomen: Soft, Non-tender Neuro Exam: Alert Extremities: No Edema Skin: Warm Medications Active Scripts Medications Dose Route/Sig Max Daily Dose Days Date Category Combivent Respimat Inhal (Ipratropium/Albuterol Sulfate) 4 Gm Aer.w.adap 2 Inh IH QID 04/17/17 Reported Metoprolol Tartrate 25 Mg Tablet 25 Mg PO BID 04/17/17 Reported Fish Oil 1,000 Mg Capsule ([place]-3 Fatty Acids/Fish Oil) 1 Each Capsule 2 Each PO DAILY 01/13/17 Reported Mucinex Dm Er 600-30 Mg Tablet (Guaifenesin/Dextromethorphan) 1 Each Tab.er.12h 2 Tab PO PRN Q12HRS 01/13/17 Reported Zolpidem Tartrate 10 Mg Tablet 1 Tab PO QHS 02/17/16 Reported Symbicort 160-4.5 Mcg Inhaler (Budesonide/Formoterol Fumarate) 10.2 Gm Hfa.aer.ad 2 Puff IH TID 02/17/16 Reported Zyrtec (Cetirizine Hcl) 10 Mg Tablet 1 Tab PO DAILY 02/17/16 Reported Daliresp (Roflumilast) 500 Mcg Tablet 1 Tab PO DAILY 02/17/16 Reported Isosorbide Mononitrate Er (Isosorbide Mononitrate) 60 Mg Tab.er.24h 1 Tab PO DAILY 02/17/16 Reported Duoneb 0.5 Mg-3 Mg/3 Ml Soln (Ipratropium/Albuterol Sulfate) 3 Ml Ampul.neb 3 Ml IH QID 11/20/13 Reported Aspirin 81 Mg Tab.chew 81 Mg PO DAILY 11/20/13 Reported Simvastatin 40 Mg Tablet 40 Mg PO HS 11/20/13 Reported Impression . 1. Kvbuu-zy-shvvrxk respiratory failure. 2. Acute exacerbation of chronic obstructive pulmonary disease. 3. Acute nonspecific bronchitis. 4. Suspect allergies contributing to her exacerbation along with elevated Temperatures 5. Type 2 diabetes. 6. allergic rhinitis Plan . SLOW TO IMPROVE D/C ALL CAFFEINE POSSIBLE MICRO ASPIRATION WITH GERD D/C SMOKING 1. Concur with current medical management, patient failed outpatient treatment , we will continue IV Solu-Medrol. 2. cont Flonase. add singulair 3. Continue Zyrtec. 4. Continue nebulized treatments. 5. Empiric antibiotics. 6. Nebulized Pulmicort. discussed w pt, rn LELAND HERNANDEZ MD Apr 20, 2017 09:29
[2017-04-20 11:00] VITALS: BP 174/98
[2017-04-20] MEDS: LISINOPRIL 5 MG TABLET. PO SCH (11:07)
--- NOTE | 2017-04-20 11:18 | PDOC ---
Provider Note Provider Note vss, no new sxs- labs ok, cont same meds, sputum may be pseudomonas but cont rocep/azith for now TOM OCONNOR MD Apr 20, 2017 11:18
[2017-04-20 14:51] VITALS: BP 141/98
[2017-04-20 19:00] VITALS: BP 110/89
[2017-04-20] MEDS: AZITHROMYCIN 500 MG in IV NORMAL SALINE 250ML 250 ML IV SCH (21:16)
[2017-04-20] MEDS: SIMVASTATIN 40 MG TABLET. PO SCH (21:17)
[2017-04-20] MEDS: MONTELUKAST SODIUM 10 MG TABLET. PO SCH (21:17)
[2017-04-20] MEDS: guaiFENesin DM 600/30MG 1 TAB TAB.ER.12H PO SCH (21:17)
[2017-04-20 23:00] VITALS: BP 137/82
[2017-04-21 03:00] VITALS: BP 139/74
[2017-04-21] MEDS: methylPREDNISolone SOD SUCC PF 125 MG/2 ML VIAL. IV SCH (06:30)
[2017-04-21 07:00] VITALS: BP 157/89
[2017-04-21] MEDS: guaiFENesin DM 600/30MG 1 TAB TAB.ER.12H PO SCH ×3 (08:21→20:48)
[2017-04-21] MEDS: ROFLUMILAST 500 MCG TABLET. PO SCH (08:22)
[2017-04-21] MEDS: LISINOPRIL 5 MG TABLET. PO SCH (08:22)
[2017-04-21] MEDS: ISOSORBIDE MONONITRATE ER 30 MG TAB.ER.24H PO SCH (08:22)
[2017-04-21] MEDS: CETIRIZINE HCL 10 MG TABLET. PO SCH (08:23)
[2017-04-21] MEDS: METOPROLOL TART IMMED RELEASE 25 MG TABLET. PO SCH ×2 (08:23→20:46)
[2017-04-21] MEDS: ASPIRIN CHEWABLE 81 MG TABLET. PO SCH (08:23)
[2017-04-21] MEDS: OMEGA-3 FATTY ACIDS/FISH OIL 1,000 MG CAPSULE. PO SCH (08:23)
[2017-04-21] MEDS: FLUTICASONE 50MCG/NASAL SPRAY 16GM BOTTLE. NS SCH (08:27)
[2017-04-21] MEDS: BUDESONIDE 0.5 MG/2 ML NEBU. NEB SCH ×2 (08:29→20:25)
[2017-04-21] MEDS: IPRATRPIUM/ALBUTEROL 0.5/2.5MG 3 ML NEBU. IH SCH ×4 (08:29→20:25)
--- NOTE | 2017-04-21 10:03 | PDOC ---
PULMONARY PROGRESS NOTES Subjective on 02, sob, cough, nasal congestion better, no pain, wants to go home Vitals Vital Signs Date Time Temp Pulse Resp B/P (MAP) Pulse Ox O2 Delivery O2 Flow Rate FiO2 04/21/17 08:29 95 Nasal Cannula 2.0 04/21/17 08:23 97 157/89 04/21/17 07:00 97.0 20 97.0 ROS: No Nausea, No Chest Pain, No Abdominal Pain, No Increase Cough General: Alert HEENT: Other (nc at perrl nose inflamed mucosa) Lungs: Wheezing Cardiovascular: S1, S2 Abdomen: Soft, Non-tender Neuro Exam: Alert Extremities: No Edema Skin: Warm Medications Active Scripts Medications Dose Route/Sig Max Daily Dose Days Date Category Combivent Respimat Inhal (Ipratropium/Albuterol Sulfate) 4 Gm Aer.w.adap 2 Inh IH QID 04/17/17 Reported Metoprolol Tartrate 25 Mg Tablet 25 Mg PO BID 04/17/17 Reported Fish Oil 1,000 Mg Capsule ([place]-3 Fatty Acids/Fish Oil) 1 Each Capsule 2 Each PO DAILY 01/13/17 Reported Mucinex Dm Er 600-30 Mg Tablet (Guaifenesin/Dextromethorphan) 1 Each Tab.er.12h 2 Tab PO PRN Q12HRS 01/13/17 Reported Zolpidem Tartrate 10 Mg Tablet 1 Tab PO QHS 02/17/16 Reported Symbicort 160-4.5 Mcg Inhaler (Budesonide/Formoterol Fumarate) 10.2 Gm Hfa.aer.ad 2 Puff IH TID 02/17/16 Reported Zyrtec (Cetirizine Hcl) 10 Mg Tablet 1 Tab PO DAILY 02/17/16 Reported Daliresp (Roflumilast) 500 Mcg Tablet 1 Tab PO DAILY 02/17/16 Reported Isosorbide Mononitrate Er (Isosorbide Mononitrate) 60 Mg Tab.er.24h 1 Tab PO DAILY 02/17/16 Reported Duoneb 0.5 Mg-3 Mg/3 Ml Soln (Ipratropium/Albuterol Sulfate) 3 Ml Ampul.neb 3 Ml IH QID 11/20/13 Reported Aspirin 81 Mg Tab.chew 81 Mg PO DAILY 11/20/13 Reported Simvastatin 40 Mg Tablet 40 Mg PO HS 11/20/13 Reported Impression . 1. Cpvhn-ws-kvmpsbm respiratory failure. 2. Acute exacerbation of chronic obstructive pulmonary disease. 3. Acute nonspecific bronchitis. 4. Suspect allergies contributing to her exacerbation along with elevated Temperatures 5. Type 2 diabetes. 6. allergic rhinitis Plan . D/C ALL CAFFEINE POSSIBLE MICRO ASPIRATION WITH GERD D/C SMOKING 1. Concur with current medical management, patient failed outpatient treatment , change Solu-Medrol to 40 q 8hrs. 2. cont Flonase. cont singulair 3. Continue Zyrtec. 4. Continue nebulized treatments. 5. Empiric antibiotics. 6. Nebulized Pulmicort. discussed w pt, rn LELAND HERNANDEZ MD Apr 21, 2017 10:03
--- NOTE | 2017-04-21 10:56 | PDOC ---
Provider Note Provider Note vss, no new sxs, still some wheezind, less cough- sputum OF, labs ok- steroid reduced per pulm,- likely can dc 04/22 on po meds TOM OCONNOR MD Apr 21, 2017 10:56
[2017-04-21 11:00] VITALS: BP 144/89
[2017-04-21] MEDS: methylPREDNISolone SOD SUCC PF 40 MG/ML VIAL. IV SCH ×2 (14:10→21:44)
[2017-04-21 15:00] VITALS: BP 140/89
--- NOTE | 2017-04-21 16:22 | PDOC ---
PROGRESS NOTES Subjective Subjective The patient looks and feels better today. Objective Objective Vital Signs Date Time Temp Pulse Resp B/P (MAP) Pulse Ox O2 Delivery O2 Flow Rate FiO2 04/21/17 16:06 95 Nasal Cannula 2.0 04/21/17 11:00 97.7 100 20 144/89 (107) 97.7 Intake and Output 04/21/17 07:00 Intake Total 1580 ml Balance 1580 ml Intake Oral 1280 ml IV Total 300 ml # Voids 3 Physical Exam Abdomen: Normal bowel sounds Heart: Other (Rate of 94.) General: No acute distress HEENT: Atraumatic Lungs: Other (decreased breath sounds) Assessment Assessment ASSESSMENT/PLAN 1. Tachyarrhythmia with h/o chronic tachycardia episode of SVT following exertional activity without oxygen secondary to hypoxia/AE COPD responded well to Dig. Presently ST with rate 100s continue BB for now unless wheezing progresses. Will use Dig IV PRN. 2. Acute on chronic respiratory failure with AE COPD with continued tobaccoism Improving per pulm 3. Hypertension labile; continue present medications. 4. Hyperlipidemia LDL= 56 (11/27) Comment Review of Relevant I have reviewed the following items jonel (where applicable) has been applied. Labs Microbiology 04/18/17 Gram Stain - Final, Complete Medications Current Medications Ceftriaxone Sodium 1 gm/ Sodium Chloride 50 ml @ 100 mls/hr Q24H IV Last administered on 04/20/17 20:14; Start 04/17/17 at 20:00 Azithromycin 500 mg/Sodium Chloride 250 ml @ 250 mls/hr Q24H IV Last administered on 04/20/17 21:16; Start 04/17/17 at 21:00; Stop 04/21/17 at 10:53 ; Status DC Methylprednisolone Sodium Succinate (SOLU-Medrol 125MG VIAL) 80 mg Q8HRS IV Last administered on 04/21/17 06:30; Start 04/17/17 at 22:00; Stop 04/21/17 at 10:04; Status DC Sodium Chloride 1,000 ml @ 100 mls/hr 1X ONCE IV Last administered on 20:49; Start 04/17/17 at 18:30; Stop 04/18/17 at 04:29; Status DC Albuterol/ Ipratropium (Duoneb) 3 ml RTQID IH Last administered on 04/21/17 16 :05; Start 04/17/17 at 21:00 Isosorbide Mononitrate (Imdur) 60 mg DAILY PO Last administered on 04/21/17 08 :22; Start 04/18/17 at 09:00 Aspirin (Children'S Aspirin) 81 mg DAILY PO Last administered on 04/21/17 08: 23; Start 04/18/17 at 09:00 Cetirizine HCl (ZyrTEC) 10 mg DAILY PO Last administered on 04/21/17 08:23; Start 04/18/17 at 09:00 Guaifenesin (MUCINEX ER with DM) 2 tab PRN Q12HRS PRN PO COUGH Last administered on 04/20/17 08:53; Start 04/17/17 at 19:00; Stop 04/20/17 at 21:00 ; Status DC Metoprolol Tartrate (Lopressor) 25 mg BID PO Last administered on 04/18/17 09: 00; Start 04/17/17 at 21:00; Stop 04/18/17 at 11:23; Status DC Fish Oil (Fish Oil) 1,000 mg DAILY PO Last administered on 04/21/17 08:23; Start 04/18/17 at 09:00 Roflumilast (Daliresp) 500 mcg DAILY PO Last administered on 04/21/17 08:22; Start 04/18/17 at 09:00 Simvastatin (Zocor) 40 mg HS PO Last administered on 04/20/17 21:17; Start 04/17/17 at 21:00 Non-Formulary Medication 2 puff TID IH ; Start 04/17/17 at 21:00; Status UNV Non-Formulary Medication 2 inh QID IH ; Start 04/17/17 at 21:00; Status UNV Zolpidem Tartrate (Ambien) 5 mg PRN QHS PRN PO INSOMNIA Last administered on 23:45; Start 04/17/17 at 19:15 Budesonide (Pulmicort) 0.5 mg RTBID NEB Last administered on 04/21/17 08:29; Start 04/17/17 at 20:00 Metoprolol Tartrate (Lopressor) 12.5 mg BID PO Last administered on 04/21/17 08:23; Start 04/18/17 at 21:00 Fluticasone Propionate (Flonase) 2 spray DAILY NS Last administered on 08:27; Start 04/18/17 at 16:30 Digoxin (Lanoxin) 250 mcg 1X ONCE IV Last administered on 04/20/17 05:28; Start 04/20/17 at 05:45; Stop 04/20/17 at 05:46; Status DC Albuterol Sulfate (Ventolin Neb Soln) 2.5 mg PRN Q4HRS PRN NEB SHORTNESS OF BREATH; Start 04/20/17 at 05:30 Guaifenesin (MUCINEX ER with DM) 2 tab BID PO Last administered on 04/21/17 08 :21; Start 04/20/17 at 21:00 Montelukast Sodium (Singulair) 10 mg QHS PO Last administered on 04/20/17 21: 17; Start 04/20/17 at 21:00 Lisinopril (Prinivil) 5 mg DAILY PO Last administered on 04/21/17 08:22; Start 04/20/17 at 10:15 Methylprednisolone Sodium Succinate (SOLU-Medrol 40MG VIAL) 40 mg Q8HRS IV Last administered on 04/21/17 14:10; Start 04/21/17 at 14:00 Azithromycin (Zithromax) 500 mg 1X ONCE PO ; Start 04/21/17 at 18:00; Stop 09/27 at 18:01 Active Scripts Active Reported Combivent Respimat Inhal (Ipratropium/Albuterol Sulfate) 4 Gm Aer.w.adap 2 Inh IH QID Metoprolol Tartrate 25 Mg Tablet 25 Mg PO BID Fish Oil 1,000 Mg Capsule ([place]-3 Fatty Acids/Fish Oil) 1 Each Capsule 2 Each PO DAILY Mucinex Dm Er 600-30 Mg Tablet (Guaifenesin/Dextromethorphan) 1 Each Tab.er.12h 2 Tab PO PRN Q12HRS Zolpidem Tartrate 10 Mg Tablet 1 Tab PO QHS Symbicort 160-4.5 Mcg Inhaler (Budesonide/Formoterol Fumarate) 10.2 Gm Hfa.aer.ad 2 Puff IH TID Zyrtec (Cetirizine Hcl) 10 Mg Tablet 1 Tab PO DAILY Daliresp (Roflumilast) 500 Mcg Tablet 1 Tab PO DAILY Isosorbide Mononitrate Er (Isosorbide Mononitrate) 60 Mg Tab.er.24h 1 Tab PO DAILY Duoneb 0.5 Mg-3 Mg/3 Ml Soln (Ipratropium/Albuterol Sulfate) 3 Ml Ampul.neb 3 Ml IH QID Aspirin 81 Mg Tab.chew 81 Mg PO DAILY Simvastatin 40 Mg Tablet 40 Mg PO HS Vitals/I & O Vital Sign - Last 24 Hours 04/20/17 04/20/17 04/20/17 04/20/17 19:00 20:00 20:54 20:55 Temp 97.5 97.5 Pulse 127 Resp 20 B/P (MAP) 110/89 (96) Pulse Ox 93 O2 Delivery Nasal Cannula Nasal Cannula Nasal Cannula Nasal Cannula O2 Flow Rate 2.0 2.0 2.0 2.0 04/20/17 04/20/17 04/21/17 04/21/17 21:18 23:00 03:00 07:00 Temp 97.5 97.9 97.0 97.5 97.9 97.0 Pulse 120 135 96 97 Resp 20 18 20 B/P (MAP) 134/77 137/82 (100) 139/74 (95) 157/89 (111) Pulse Ox 97 95 96 O2 Delivery Nasal Cannula Nasal Cannula Nasal Cannula O2 Flow Rate 2.0 2.0 2.0 04/21/17 04/21/17 04/21/17 04/21/17 08:00 08:22 08:22 08:23 Pulse 97 97 97 B/P (MAP) 157/89 157/89 157/89 O2 Delivery Nasal Cannula O2 Flow Rate 2.0 04/21/17 04/21/17 04/21/17 04/21/17 08:29 11:00 12:58 16:06 Temp 97.7 97.7 Pulse 100 Resp 20 B/P (MAP) 144/89 (107) Pulse Ox 95 95 95 O2 Delivery Nasal Cannula Nasal Cannula Nasal Cannula Nasal Cannula O2 Flow Rate 2.0 2.0 2.0 2.0 Intake and Output 04/20/17 04/20/17 04/21/17 15:00 23:00 07:00 Intake Total 500 ml 900 ml 180 ml Balance 500 ml 900 ml 180 ml MCSWEYN,ALONSO J MD Apr 21, 2017 16:22
[2017-04-21] MEDS ORDERED: AZITHROMYCIN 250 MG TABLET. PO ONE (18:00)
[2017-04-21 19:00] VITALS: BP 138/82
[2017-04-21] MEDS: PSEUDOEPHEDRINE ER 120 MG TABLET.ER. PO SCH (19:37)
[2017-04-21] MEDS: SIMVASTATIN 40 MG TABLET. PO SCH (20:45)
[2017-04-21] MEDS: MONTELUKAST SODIUM 10 MG TABLET. PO SCH (20:45)
[2017-04-21 22:52] VITALS: BP 144/79
[2017-04-22] MEDS: ZOLPIDEM 5 MG TABLET. PO PRN ×2 (00:50→23:47)
[2017-04-22 03:00] VITALS: BP 136/81
[2017-04-22] MEDS: methylPREDNISolone SOD SUCC PF 40 MG/ML VIAL. IV SCH ×3 (05:41→22:46)
[2017-04-22 07:00] VITALS: BP 166/86
[2017-04-22] MEDS: BUDESONIDE 0.5 MG/2 ML NEBU. NEB SCH ×2 (07:52→19:19)
[2017-04-22] MEDS: IPRATRPIUM/ALBUTEROL 0.5/2.5MG 3 ML NEBU. IH SCH ×4 (07:52→19:19)
--- NOTE | 2017-04-22 08:27 | PDOC ---
GENERAL General: vss and afebrile. slow improvement in breathing. can still feel tightness in chest walking to bathroom. very stuffy nose and sore throat. nose likely O2 related and will give saline nasal spray. early thrush on oral exam and nystatin ordered for same. some better air movement on chest exam. continue same otherwise. Problems: VITAL SIGNS Vital Signs: Vital Signs Date Time Temp Pulse Resp B/P (MAP) Pulse Ox O2 Delivery O2 Flow Rate FiO2 04/22/17 07:53 95 Nasal Cannula 1.5 04/22/17 07:00 96.4 92 18 166/86 (112) 96.4 I & O I & O Intake and Output 04/22/17 07:00 Intake Total 1460 ml Balance 1460 ml Intake Oral 1460 ml # Voids 6 # Bowel Movements 1 ALLERGIES Allergies: Allergies Coded Allergies Type Severity Reaction Last Updated Verified No Known Drug Allergies 02/17/16 No MEDS Medications: Current Medications Medications (Trade) Dose Ordered Sig/Home Start Time Stop Time Status Last Admin Dose Admin Albuterol Sulfate (Ventolin Neb Soln) 2.5 mg PRN Q4HRS PRN 04/20/17 05:30 Albuterol/ Ipratropium (Duoneb) 3 ml RTQID 04/17/17 21:00 04/22/17 07:52 3 ML Aspirin (Children'S Aspirin) 81 mg DAILY 04/18/17 09:00 04/21/17 08:23 81 MG Azithromycin (Zithromax) 500 mg 1X ONCE 04/21/17 18:00 04/21/17 18:01 DC 04/21/17 17:24 500 MG Azithromycin 500 mg/Sodium Chloride 250 ml @ 250 mls/hr Q24H 04/17/17 21:00 04/21/17 10:53 DC 04/20/17 21:16 250 MLS/HR Budesonide (Pulmicort) 0.5 mg RTBID 04/17/17 20:00 04/22/17 07:52 0.5 MG Ceftriaxone Sodium 1 gm/ Sodium Chloride 50 ml @ 100 mls/hr Q24H 04/17/17 20:00 04/21/17 19:37 100 MLS/HR Cetirizine HCl (ZyrTEC) 10 mg DAILY 04/18/17 09:00 04/21/17 08:23 10 MG Digoxin (Lanoxin) 250 mcg 1X ONCE 04/20/17 05:45 04/20/17 05:46 DC 04/20/17 05:28 250 MCG Fish Oil (Fish Oil) 1,000 mg DAILY 04/18/17 09:00 04/21/17 08:23 1,000 MG Fluticasone Propionate (Flonase) 2 spray DAILY 04/18/17 16:30 04/21/17 08:27 2 SPRAY Guaifenesin (MUCINEX ER with DM) 2 tab BID 04/20/17 21:00 04/21/17 08:21 2 TAB Isosorbide Mononitrate (Imdur) 60 mg DAILY 04/18/17 09:00 04/21/17 08:22 60 MG Lisinopril (Prinivil) 5 mg DAILY 04/20/17 10:15 04/21/17 08:22 5 MG Methylprednisolone Sodium Succinate (SOLU-Medrol 40MG VIAL) 40 mg Q8HRS 04/21/17 14:00 04/22/17 05:41 40 MG Methylprednisolone Sodium Succinate (SOLU-Medrol 125MG VIAL) 80 mg Q8HRS 04/17/17 22:00 04/21/17 10:04 DC 04/21/17 06:30 80 MG Metoprolol Tartrate (Lopressor) 12.5 mg BID 04/18/17 21:00 04/21/17 20:46 12.5 MG Montelukast Sodium (Singulair) 10 mg QHS 04/20/17 21:00 04/21/17 20:45 10 MG Non-Formulary Medication 2 inh QID 04/17/17 21:00 UNV Nystatin 5 ml [id number] 04/22/17 09:00 Pseudoephedrine HCl (Sudafed 12-Hour) 120 mg BID 04/21/17 21:00 04/21/17 19:37 120 MG Roflumilast (Daliresp) 500 mcg DAILY 04/18/17 09:00 04/21/17 08:22 500 MCG Simvastatin (Zocor) 40 mg HS 04/17/17 21:00 04/21/17 20:45 40 MG Sodium Chloride (Saline Mist Nasal) 1 yen PRN Q1HR PRN 04/22/17 08:15 Zolpidem Tartrate (Ambien) 5 mg PRN QHS PRN 04/17/17 19:15 04/22/17 00:50 5 MG HELEN BARAJAS MD Apr 22, 2017 08:27
[2017-04-22] MEDS: guaiFENesin DM 600/30MG 1 TAB TAB.ER.12H PO SCH ×3 (09:00→20:55)
[2017-04-22] MEDS: SODIUM CHLORIDE 0.65% NASAL SPRAY 45ML BOTTLE. NS PRN ×2 (09:05→13:39)
[2017-04-22] MEDS: FLUTICASONE 50MCG/NASAL SPRAY 16GM BOTTLE. NS SCH (09:05)
[2017-04-22] MEDS: PSEUDOEPHEDRINE ER 120 MG TABLET.ER. PO SCH ×2 (09:06→20:52)
[2017-04-22] MEDS: ROFLUMILAST 500 MCG TABLET. PO SCH (09:06)
[2017-04-22] MEDS: OMEGA-3 FATTY ACIDS/FISH OIL 1,000 MG CAPSULE. PO SCH (09:06)
[2017-04-22] MEDS: LISINOPRIL 5 MG TABLET. PO SCH (09:07)
[2017-04-22] MEDS: ISOSORBIDE MONONITRATE ER 30 MG TAB.ER.24H PO SCH (09:07)
[2017-04-22] MEDS: ASPIRIN CHEWABLE 81 MG TABLET. PO SCH (09:07)
[2017-04-22] MEDS: NYSTATIN 100,000 UNITS/ML 5 ML ORAL.SUSP. SWSW SCH ×4 (09:08→20:52)
[2017-04-22] MEDS: METOPROLOL TART IMMED RELEASE 25 MG TABLET. PO SCH ×2 (09:08→20:51)
[2017-04-22] MEDS: CETIRIZINE HCL 10 MG TABLET. PO SCH (09:09)
[2017-04-22 10:30] VITALS: BP 160/73
[2017-04-22 15:00] VITALS: BP 129/72
[2017-04-22 19:00] VITALS: BP 143/83
[2017-04-22] MEDS: CEFPODOXIME PROXETIL 100 MG TABLET. PO SCH (20:51)
[2017-04-22] MEDS: MONTELUKAST SODIUM 10 MG TABLET. PO SCH (20:52)
[2017-04-22] MEDS: SIMVASTATIN 40 MG TABLET. PO SCH (20:52)
[2017-04-22 23:00] VITALS: BP 147/85
[2017-04-23] MEDS: methylPREDNISolone SOD SUCC PF 40 MG/ML VIAL. IV SCH (05:33)
[2017-04-23 07:30] VITALS: BP 160/83
[2017-04-23] MEDS: BUDESONIDE 0.5 MG/2 ML NEBU. NEB SCH (07:48)
[2017-04-23] MEDS: IPRATRPIUM/ALBUTEROL 0.5/2.5MG 3 ML NEBU. IH SCH (07:48)
[2017-04-23] MEDS: ROFLUMILAST 500 MCG TABLET. PO SCH (08:24)
[2017-04-23] MEDS: PSEUDOEPHEDRINE ER 120 MG TABLET.ER. PO SCH (08:24)
[2017-04-23] MEDS: NYSTATIN 100,000 UNITS/ML 5 ML ORAL.SUSP. SWSW SCH (08:24)
[2017-04-23] MEDS: CEFPODOXIME PROXETIL 100 MG TABLET. PO SCH (08:24)
[2017-04-23] MEDS: ASPIRIN CHEWABLE 81 MG TABLET. PO SCH (08:25)
[2017-04-23] MEDS: LISINOPRIL 5 MG TABLET. PO SCH (08:25)
[2017-04-23] MEDS: OMEGA-3 FATTY ACIDS/FISH OIL 1,000 MG CAPSULE. PO SCH (08:25)
[2017-04-23] MEDS: METOPROLOL TART IMMED RELEASE 25 MG TABLET. PO SCH (08:26)
[2017-04-23 08:27] VITALS: BP 160/83
[2017-04-23] MEDS: ISOSORBIDE MONONITRATE ER 30 MG TAB.ER.24H PO SCH (08:27)
[2017-04-23] MEDS: CETIRIZINE HCL 10 MG TABLET. PO SCH (08:27)
[2017-04-23] MEDS: FLUTICASONE 50MCG/NASAL SPRAY 16GM BOTTLE. NS SCH (08:27)
[2017-04-23] MEDS: guaiFENesin DM 600/30MG 1 TAB TAB.ER.12H PO SCH (08:29)
--- NOTE | 2017-04-23 08:35 | PDOC ---
GENERAL General: vss and afebrile. much less sob today and moving more air with not nearly as much wheezing. O2 sats good on 2L/NC. has O2 at home. could go today if ok with pulmonary on steroid taper which she has at home and finish po levaquin she was taking prior to admit. Problems: VITAL SIGNS Vital Signs: Vital Signs Date Time Temp Pulse Resp B/P (MAP) Pulse Ox O2 Delivery O2 Flow Rate FiO2 04/23/17 08:27 89 160/83 04/23/17 07:49 Nasal Cannula 2.0 04/22/17 23:00 97.0 20 99 97.0 I & O I & O Intake and Output 04/23/17 07:00 Intake Total 3900 ml Balance 3900 ml Intake Oral 3900 ml # Voids 8 # Bowel Movements 1 ALLERGIES Allergies: Allergies Coded Allergies Type Severity Reaction Last Updated Verified No Known Drug Allergies 02/17/16 No MEDS Medications: Current Medications Medications (Trade) Dose Ordered Sig/Home Start Time Stop Time Status Last Admin Dose Admin Albuterol Sulfate (Ventolin Neb Soln) 2.5 mg PRN Q4HRS PRN 04/20/17 05:30 Albuterol/ Ipratropium (Duoneb) 3 ml RTQID 04/17/17 21:00 04/23/17 07:48 3 ML Aspirin (Children'S Aspirin) 81 mg DAILY 04/18/17 09:00 04/23/17 08:25 81 MG Azithromycin (Zithromax) 500 mg 1X ONCE 04/21/17 18:00 04/21/17 18:01 DC 04/21/17 17:24 500 MG Azithromycin 500 mg/Sodium Chloride 250 ml @ 250 mls/hr Q24H 04/17/17 21:00 04/21/17 10:53 DC 04/20/17 21:16 250 MLS/HR Budesonide (Pulmicort) 0.5 mg RTBID 04/17/17 20:00 04/23/17 07:48 0.5 MG Cefpodoxime Proxetil (Vantin) 200 mg BID 04/22/17 21:00 04/23/17 08:24 200 MG Ceftriaxone Sodium 1 gm/ Sodium Chloride 50 ml @ 100 mls/hr Q24H 04/17/17 20:00 04/22/17 13:15 DC 04/21/17 19:37 100 MLS/HR Cetirizine HCl (ZyrTEC) 10 mg DAILY 04/18/17 09:00 04/23/17 08:27 10 MG Digoxin (Lanoxin) 250 mcg 1X ONCE 04/20/17 05:45 04/20/17 05:46 DC 04/20/17 05:28 250 MCG Fish Oil (Fish Oil) 1,000 mg DAILY 04/18/17 09:00 04/23/17 08:25 1,000 MG Fluticasone Propionate (Flonase) 2 spray DAILY 04/18/17 16:30 04/23/17 08:27 2 SPRAY Guaifenesin (MUCINEX ER with DM) 2 tab BID 04/20/17 21:00 04/21/17 08:21 2 TAB Isosorbide Mononitrate (Imdur) 60 mg DAILY 04/18/17 09:00 04/23/17 08:27 60 MG Lisinopril (Prinivil) 5 mg DAILY 04/20/17 10:15 04/23/17 08:25 5 MG Methylprednisolone Sodium Succinate (SOLU-Medrol 40MG VIAL) 40 mg Q8HRS 04/21/17 14:00 04/23/17 05:33 40 MG Methylprednisolone Sodium Succinate (SOLU-Medrol 125MG VIAL) 80 mg Q8HRS 04/17/17 22:00 04/21/17 10:04 DC 04/21/17 06:30 80 MG Metoprolol Tartrate (Lopressor) 12.5 mg BID 04/18/17 21:00 04/23/17 08:26 12.5 MG Montelukast Sodium (Singulair) 10 mg QHS 04/20/17 21:00 04/22/17 20:52 10 MG Non-Formulary Medication 2 inh QID 04/17/17 21:00 UNV Nystatin 5 ml [id number] 04/22/17 09:00 04/23/17 08:24 5 ML Pseudoephedrine HCl (Sudafed 12-Hour) 120 mg BID 04/21/17 21:00 04/23/17 08:24 120 MG Roflumilast (Daliresp) 500 mcg DAILY 04/18/17 09:00 04/23/17 08:24 500 MCG Simvastatin (Zocor) 40 mg HS 04/17/17 21:00 04/22/17 20:52 40 MG Sodium Chloride (Saline Mist Nasal) 1 yen PRN Q1HR PRN 04/22/17 08:15 04/22/17 13:39 1 YEN Zolpidem Tartrate (Ambien) 5 mg PRN QHS PRN 04/17/17 19:15 04/22/17 23:47 5 MG HELEN BARAJAS MD Apr 23, 2017 08:35
--- NOTE | 2017-04-23 08:45 | PDOC ---
PULMONARY PROGRESS NOTES Subjective on , sob, cough, nasal congestion better, no pain, wants to go home Vitals Vital Signs Date Time Temp Pulse Resp B/P (MAP) Pulse Ox O2 Delivery O2 Flow Rate FiO2 04/23/17 08:27 89 160/83 04/23/17 08:00 Room Air 04/23/17 07:49 2.0 04/22/17 23:00 97.0 20 99 97.0 ROS: No Nausea, No Chest Pain, No Abdominal Pain, No Increase Cough General: Alert HEENT: Other (nc at perrl nose inflamed mucosa) Lungs: Wheezing (faint) Cardiovascular: S1, S2 Abdomen: Soft, Non-tender Neuro Exam: Alert Extremities: No Edema Skin: Warm Medications Active Scripts Medications Dose Route/Sig Max Daily Dose Days Date Category Combivent Respimat Inhal (Ipratropium/Albuterol Sulfate) 4 Gm Aer.w.adap 2 Inh IH QID 04/17/17 Reported Metoprolol Tartrate 25 Mg Tablet 25 Mg PO BID 04/17/17 Reported Fish Oil 1,000 Mg Capsule ([place]-3 Fatty Acids/Fish Oil) 1 Each Capsule 2 Each PO DAILY 01/13/17 Reported Mucinex Dm Er 600-30 Mg Tablet (Guaifenesin/Dextromethorphan) 1 Each Tab.er.12h 2 Tab PO PRN Q12HRS 01/13/17 Reported Zolpidem Tartrate 10 Mg Tablet 1 Tab PO QHS 02/17/16 Reported Symbicort 160-4.5 Mcg Inhaler (Budesonide/Formoterol Fumarate) 10.2 Gm Hfa.aer.ad 2 Puff IH TID 02/17/16 Reported Zyrtec (Cetirizine Hcl) 10 Mg Tablet 1 Tab PO DAILY 02/17/16 Reported Daliresp (Roflumilast) 500 Mcg Tablet 1 Tab PO DAILY 02/17/16 Reported Isosorbide Mononitrate Er (Isosorbide Mononitrate) 60 Mg Tab.er.24h 1 Tab PO DAILY 02/17/16 Reported Duoneb 0.5 Mg-3 Mg/3 Ml Soln (Ipratropium/Albuterol Sulfate) 3 Ml Ampul.neb 3 Ml IH QID 11/20/13 Reported Aspirin 81 Mg Tab.chew 81 Mg PO DAILY 11/20/13 Reported Simvastatin 40 Mg Tablet 40 Mg PO HS 11/20/13 Reported Impression . 1. Lbhrc-zf-avyxeyx respiratory failure. 2. Acute exacerbation of chronic obstructive pulmonary disease. 3. Acute nonspecific bronchitis. 4. Suspect allergies contributing to her exacerbation along with elevated Temperatures 5. Type 2 diabetes. 6. allergic rhinitis Plan . D/C ALL CAFFEINE POSSIBLE MICRO ASPIRATION WITH GERD D/C SMOKING 1. Concur with current medical management, patient failed outpatient treatment , start PO steroid taper 2. cont Flonase. cont singulair 3. Continue Zyrtec. 4. Continue nebulized treatments. 5. Empiric antibiotics. 6. Nebulized Pulmicort. discussed w pt, rn ok with [facility] KENNEDY IRELAND MD Apr 23, 2017 08:45
--- NOTE | 2017-04-24 04:24 | DS ---
DATE OF DISCHARGE: 04/23/2017 PRIMARY DIAGNOSES: Exacerbation of chronic obstructive pulmonary disease with shortness of breath and tachycardia. ADDITIONAL DIAGNOSIS: Atherosclerotic heart disease. CHIEF COMPLAINT AND HISTORY OF PRESENT ILLNESS: This is a 72-year-old white female who was admitted through the office, failed outpatient treatment of exacerbation of COPD with ongoing tachycardia, tachypnea, who failed treatment of oral prednisone and Levaquin. SUMMARY OF STAY: The patient was admitted. Pulmonary was counseled and she had chest x-ray without any significant problems prior to admission. She was treated with IV steroids, pulmonary toilet, antibiotics, IV fluids, and had slow, but steady improvement throughout the study to the point where she was felt she could be discharged on the day of dismissal with her being able to get back to the bathroom for the first time without significant shortness of breath and only mild blurred wheezing heard. DISPOSITION: The patient is discharged to home, regular diet. Activity as tolerated, office in 1 week. DISCHARGE MEDICATIONS: Listed on the med rec and have been addressed. HELEN BARAJAS MD DR: NITIN/lazaro JOB#: [id number] / [id number]
== END 2017-04-23 09:45 | disposition home or self-care (01) | DRG 189 ==
LOC: 5 NORTH 17:12 → OBSVTOIN 17:12
PROVIDERS: ADMIT Family Medicine; ATTEND Family Medicine
DX: J96.21 Acute and chronic respiratory failure with hypoxia (principal); J44.1 Chronic obstructive pulmonary disease with (acute) exacerbation; I47.1 Supraventricular tachycardia; J44.0 Chronic obstructive pulmonary disease with (acute) lower respiratory infection; J20.9 Acute bronchitis, unspecified; E11.9 Type 2 diabetes mellitus without complications; E78.5 Hyperlipidemia, unspecified; F17.210 Nicotine dependence, cigarettes, uncomplicated; I10 Essential (primary) hypertension; F41.9 Anxiety disorder, unspecified; G47.00 Insomnia, unspecified; M19.90 Unspecified osteoarthritis, unspecified site; I25.10 Atherosclerotic heart disease of native coronary artery without angina pectoris; J30.9 Allergic rhinitis, unspecified; K21.9 Gastro-esophageal reflux disease without esophagitis; Z82.5 Family history of asthma and other chronic lower respiratory diseases; Z99.81 Dependence on supplemental oxygen
CPT/HCPCS: 36415; 80053; 81001; 85027; 87070; 87205; 93005; 94250; 94640; 94667; 94760; 99406; J0456; J0696; J1160; J2920; J2930; J7050; J7620; Q0144; J7030

== ENCOUNTER 2017-08-25 12:54 | Emergency (ER) | payer MEDICARE ==
[~2017-08-25] VITALS: Ht 165.1 cm; Wt 64.0 kg
[~2017-08-25 12:54] MED LIST changes: -DILT180C73 PO; +DILT180C79 PO; -GUAI-107 PO; +GUAI-108 PO
[2017-08-25 13:39] VITALS: BP 138/72
--- NOTE | 2017-08-25 14:58 | RAD ---
Three-view right elbow study History: Pain and swelling and redness after fall one month ago. Findings: No joint effusion is seen. No acute fracture or dislocation or osteolytic process is seen. There is soft tissue swelling of the olecranon bursa consistent with bursitis. IMPRESSION: No acute fracture. Olecranon bursitis. No radiopaque foreign body is evident. Soft tissue air is seen.
[2017-08-25] MEDS ORDERED: SMZ/TMP 800/160MG TABLET. PO ONE (15:15)
[2017-08-25] MEDS ORDERED: NAPR500T PO (15:31)
[2017-08-25] MEDS ORDERED: SULF1TAB24 PO (15:31)
--- NOTE | 2017-08-25 15:31 | PHYS DOC ---
Past Medical History Past Medical History: CHF, COPD, High Cholesterol, Hypertension Past Surgical History: No Surgical History Alcohol Use: Occasionally Drug Use: None Adult General Chief Complaint Chief Complaint: ELBOW PROBLEM HPI HPI Patient is a 72 year old female who reports that she had swelling to her right elbow for approximately 2-3 month now since a fall that she sustained with an injury to her right elbow. Patient reports that on she noticed increased redness to the area so she went to see her doctor. At her doctor's office the nurse practitioner aspirated fluid is sent into the lab for further analysis and cultures. Patient reports that she was not started on antibiotics and that her nurse practitioner told that she would hold off until the culture results came back. Patient reports over the last couple days there has been increased redness to her right elbow region. Patient denies any fevers shakes chills nausea vomiting diarrhea chest pain or shortness of breath. Patient does have a history of hypertension and COPD. Patient denies any diabetes liver or kidney problems. Patient reports she smokes and occasionally drinks. Patient is not allergic to any medications. Patient reports she has no pain with range of motion to her elbow but does have pain with palpation of the fluid collection behind her elbow. Review of systems: Constitutional: Denies fever or chills Eyes: Denies change in visual acuity, redness, or eye pain HENT: Denies nasal congestion or sore throat All the other review systems are negative except as documented in the history of present illness portion. Physical exam: Constitutional: Well developed, well nourished, no acute distress, non-toxic appearance. HENT: Normocephalic, atraumatic, bilateral external ears normal, nose normal. Eyes:EOMI, conjunctiva normal, no discharge. Neck: Normal range of motion, no tenderness, supple, no stridor. Cardiovascular:Heart rate regular rhythm, Lungs & Thorax: Bilateral breath sounds clear to auscultation Abdomen: Bowel sounds normal, soft, no tenderness, no masses, no pulsatile masses. Skin: Warm, dry, no erythema, no rash. Back: No tenderness, no CVA tenderness. Extremities: No tenderness, no cyanosis, no clubbing, ROM intact, no edema. Neurologic: Alert and oriented X 3, normal motor function, normal sensory function, no focal deficits noted. Psychologic: Affect normal, judgement normal, mood normal. Patient's ER physical exam is significant for what appears to be a olecranon bursitis with surrounding erythema and mild warmth to the skin. Patient has no pain with passive or active range of motion or rotation of her elbow joint. I have discussed with the patient the diagnosis of olecranon bursitis versus a septic olecranon bursitis. We will go ahead and start the patient on Bactrim DS 2 tablets by mouth twice a day 10 days and we will ask her to follow-up with her doctor in 1-2 days for test results and further treatment of her joint. Patient also be placed in a sling for comfort. Patient was instructed to return the ER if she has any increased redness and warmth or pain to that area prior to seeing her PCP. Allergies Allergies Allergies Coded Allergies Type Severity Reaction Last Updated Verified No Known Drug Allergies 02/17/16 No Current Patient Data Vital Signs Vital Signs Date Time Temp Pulse Resp B/P (MAP) Pulse Ox O2 Delivery O2 Flow Rate FiO2 08/25/17 13:39 97.5 103 18 138/72 (94) 98 Room Air 97.5 EKG EKG [] Radiology/Procedures Radiology/Procedures [] Course & Med Decision Making Course & Med Decision Making Pertinent Labs and Imaging studies reviewed. (See chart for details) [] Dragon Disclaimer Dragon Disclaimer This electronic medical record was generated, in whole or in part, using a voice recognition dictation system. Departure Departure Impression: Primary Impression: Septic olecranon bursitis of right elbow Disposition: HOME, SELF-CARE Condition: IMPROVED Referrals: HELEN BARAJAS MD (PCP) Patient Instructions: Olecranon Bursitis Scripts Naproxen (NAPROSYN) 500 Mg Tablet 500 MG PO BID, #20 TAB Prov: FRED FRANCISCO MD 08/25/17 Sulfamethoxazole/Trimethoprim (BACTRIM DS TABLET) 1 Each Tablet 2 TAB PO BID for 10 Days, TAB Prov: FRED FRANCISCO MD 08/25/17 FRED FRANCISCO MD Aug 25, 2017 15:31
== END 2017-08-25 15:40 | disposition home or self-care (01) ==
LOC: ER 12:54
DX: M70.21 Olecranon bursitis, right elbow (principal); I11.0 Hypertensive heart disease with heart failure; I50.9 Heart failure, unspecified; E78.00 Pure hypercholesterolemia, unspecified; J44.9 Chronic obstructive pulmonary disease, unspecified; W18.39XA Other fall on same level, initial encounter; Y99.8 Other external cause status; Y93.89 Activity, other specified; Y92.89 Other specified places as the place of occurrence of the external cause
CPT/HCPCS: 73080; 99284

== ENCOUNTER → 2019-03-03 | Outpatient (CLI) | payer MEDICARE ==
[2018-09-09 07:40] VITALS: BP 148/91
[~2019-03-03] MED LIST changes: +CALC-77 PO; +LACT1CAP6 PO; +LOSA100T14 PO; -LOSA100T6 PO; +MULT1TAB52 PO; +NAPR-683 PO; +PANT20TA2 PO; -SENN8.8S4 PO; +SENN8.8S5 PO; +SULF1TAB24 PO; +VITA1TAB19 PO
--- NOTE | 2019-03-03 15:51 | RAD ---
DUPLEX SONOGRAPHY OF THE PERIPHERAL ARTERIAL SYSTEM OF BOTH LOWER EXTREMITIES Clinical indications: Claudication. Findings: Duplex sonography of the peripheral arterial system of both lower extremities including mckeon scale and color flow and spectral waveform analysis was performed. There is segmental occlusion of the entire right superficial femoral artery. Reconstitution of the right popliteal artery is seen. The right peroneal artery is occluded. There is a 50% stenosis of the right common femoral artery. There is a monophasic waveform within the proximal right superficial femoral artery just proximal to the occlusive disease. Increase in end-diastolic flow is seen within the right popliteal artery distal to the occlusion. There are monophasic waveforms within the calf arteries on the right side. No occlusive disease or significant stenosis of the left lower extremity arterial system is seen. Biphasic waveforms are seen on this side. The measurements were performed using the NASCET criteria. Peak systolic flow velocities are as follows: Right leg: common femoral artery- 240 cm/sec, profunda femoral artery -120 cm/sec, proximal superficial femoral artery -0 cm/sec, mid superficial femoral artery -0 cm/sec, distal superficial femoral artery- 0 cm/sec, popliteal artery -39 cm/sec, proximal posterior tibial artery- 29 cm/sec, distal posterior tibial artery- 30 cm/sec, peroneal artery- 0 cm/sec, anterior tibial artery- 33 cm/sec, dorsalis pedis artery -33 cm/sec. Left leg: common femoral artery- 106 cm/sec, profunda femoral artery -51 cm/sec, proximal superficial femoral artery- 65cm/sec, mid superficial femoral artery- 162 cm/sec, distal superficial femoral artery- 155 cm/sec, popliteal artery -32 cm/sec, proximal posterior tibial artery -42 cm/sec, distal posterior tibial artery- 32 cm/sec, peroneal artery -31 cm/sec, anterior tibial artery -42 cm/sec, dorsalis pedis artery- 27 cm/sec. 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 50% stenosis of the right common femoral artery. Electronically signed by: Nilton Carlos MD (03/03/2019 3:48 PM) [place] [id number]
== END | disposition home or self-care (01) ==
LOC: US 08:18
PROVIDERS: ATTEND Family Medicine
DX: I70.291 Other atherosclerosis of native arteries of extremities, right leg (principal)
CPT/HCPCS: 93925

== ENCOUNTER → 2019-04-23 | Outpatient (CLI) | payer MEDICARE ==
[2018-09-09 07:40] VITALS: BP 148/91
--- NOTE | 2019-04-23 12:25 | RAD ---
EXAM: CT Head without IV contrast CLINICAL HISTORY: Head injury, balance issues COMPARISON: None. TECHNIQUE: Routine CT of the head without contrast. Soft tissues and bone windows were reviewed. PQRS compliance statement - One or more of the following individualized dose reduction techniques were utilized for this study: 1. Automated exposure control 2. Adjustment of the mA and/or kV according to patient size 3. Use of iterative reconstruction technique FINDINGS: There is no evidence of hemorrhage, mass or extra-axial fluid collection. Subcortical, periventricular and deep white matter foci of hypoattenuation likely changes of chronic small vessel disease. There is no mass effect or shift of the intracranial structures. The ventricles, basilar cisterns and cortical sulci are normal in size and configuration for the patients stated age. The cerebellum and brainstem are unremarkable. The calvarium demonstrates no evidence of fracture or focal lesion. There is normal aeration of the visualized paranasal sinuses and mastoid air cells. The visualized portions of the orbits are normal. IMPRESSION: 1. No evidence for acute intracranial process. 2. Changes of chronic small vessel disease. Electronically signed by: Luis Guerrier MD (04/23/2019 12:22 PM) [id number]
== END | disposition home or self-care (01) ==
LOC: CT 10:42
PROVIDERS: ATTEND Family Medicine
DX: S09.8XXA Other specified injuries of head, initial encounter (principal); G45.8 Other transient cerebral ischemic attacks and related syndromes; R26.89 Other abnormalities of gait and mobility; X58.XXXA Exposure to other specified factors, initial encounter; Y93.89 Activity, other specified; Y92.89 Other specified places as the place of occurrence of the external cause; Y99.8 Other external cause status
CPT/HCPCS: 70450

== ENCOUNTER → 2019-09-21 | Outpatient (CLI) | payer MEDICARE ==
[2019-08-08 11:32] VITALS: BP 124/84
[~2019-09-21] MED LIST changes: +CLOP75TA PO; +HYDR-2765 PO; +LOSA1TAB25 PO; +METO50TA6 PO; -NITR0.4T SL; +NITR0.4T24 SL; +ONDA4TAB12 PO; +SIMV20TA18 PO; +SIMV40TA18 PO; -SIMV40TA3 PO
--- NOTE | 2019-09-24 16:13 | RAD ---
LEFT LEG VENOUS DOPPLER STUDY: Clinical indications: Left leg swelling and pain. Abnormal nodule. Findings: Duplex sonography (including mckeon scale evaluation and color flow and waveform spectral analysis) of the proximal aspect of the greater saphenous vein and the proximal aspect of the profunda femoral vein and the entire length of the common femoral and superficial femoral and popliteal veins and the tibioperoneal trunk and the proximal aspect of the posterior tibial and peroneal veins of the left leg was performed. Normal compressibility, augmentation of color Doppler flow after calf compression, and respiratory variation of Doppler flow is seen. Thus, there are no sonographic findings of deep venous thrombosis within these veins. Impression: There are no sonographic findings of deep venous thrombosis within the veins discussed above of the left lower extremity. In the area of palpable nodule of the upper left lateral calf, sonography demonstrates a subcutaneous slightly hypoechoic solid nodule measuring 1.5 cm x 0.5 cm x 1.0 cm in size. No internal color Doppler flow is seen within it. This could represent a small soft tissue hematoma. However, clinical follow-up with regard to any growth in size is needed to exclude a small sarcoma. Electronically signed by: Nilton Carlos MD (09/24/2019 4:10 PM) [facility]
== END | disposition home or self-care (01) ==
LOC: US 10:03
PROVIDERS: ATTEND Family Medicine
DX: R22.42 Localized swelling, mass and lump, left lower limb (principal); M79.89 Other specified soft tissue disorders; E11.9 Type 2 diabetes mellitus without complications; E78.00 Pure hypercholesterolemia, unspecified
CPT/HCPCS: 93971

== ENCOUNTER → 2019-10-02 | Outpatient (CLI) | payer MEDICARE ==
[2019-08-08 11:32] VITALS: BP 124/84
--- NOTE | 2019-10-02 13:55 | KCIC ---
EXAMINATION: Magnetic resonance imaging (MRI) of the lumbar spine without contrast 10/02/2019 12:30 PM HISTORY: Neurogenic claudication. Chronic back pain with bilateral leg pain and weakness. TECHNIQUE: Multiplanar multi-weighted MRI of the lumbar spine was performed without intravenous contrast using the standard lumbar spine protocol. Contrast information: None administered. COMPARISON: None available. FINDINGS: There is minimal anterolisthesis of L4 on L5. There is minimal retrolisthesis of L5 on S1. There is a superior plate compression fracture of T12 with mild retropulsion and 25 percent height loss, chronic. There is no associated edema. There is mild disc height loss at L1-L2 and L2-L3. Moderate disc height loss is identified at L3-L4, L4-L5 and L5-S1. Modic 2 endplate degenerative changes are identified at L3-L4, L4-L5 and L5-S1. Conus medullaris terminates at L1. Distal spinal cord signal intensity is normal in all sequences. Gallbladder is present. Abdominal aorta is normal in caliber. No suspicious retrocardiac abnormalities identified. Visualized portions of the sacrum appear intact. T11-T12: There is mild disc bulge. Mild facet arthropathy. No neuroforaminal stenosis. Mild spinal canal stenosis secondary to retropulsion of the superior endplate of T12. T12-L1: There is mild disc bulge. Mild facet arthropathy. There is moderate bilateral neuroforaminal stenosis, left greater than right. No spinal canal stenosis. L1-L2: There is a disc bulge with left central disc extrusion extending into the left foraminal zone. There is mild facet arthropathy. There is moderate left and mild right neuroforaminal stenosis. Mild narrowing of the left lateral recess. No significant spinal canal stenosis. L2-L3: There is a circumferential disc bulge with left far lateral disc protrusion. There is mild facet arthropathy. There is moderate left neuroforaminal stenosis. Mild spinal canal stenosis, exacerbated by epidural lipomatosis. L3-L4: There is moderate disc bulge. There is central disc protrusion. Is mild facet arthropathy ligamentum flavum infolding. There is moderate left and mild right neuroforaminal stenosis. Mild spinal canal stenosis. L4-L5: There is a moderate disc bulge. There is a central disc extrusion. There is moderate facet arthropathy ligamentum flavum infolding. There is severe right and moderate left neuroforaminal stenosis. Severe right lateral recess stenosis. Severe spinal canal stenosis. L5-S1: There is a posterior disc osteophyte complex with left central disc protrusion. Is moderate facet arthropathy. Moderate left and mild right neuroforaminal stenosis. No significant spinal canal stenosis. There is left lateral recess stenosis which may affect the traversing left S1 nerve. IMPRESSION: Moderate degenerative changes of lumbar spine are present, as described in detail above. Electronically signed by: Katherine Kunz MD (10/02/2019 1:52 PM) [id number]
== END | disposition home or self-care (01) ==
LOC: KCIC MRI 12:14
PROVIDERS: ATTEND Family Medicine
DX: M48.57XA Collapsed vertebra, not elsewhere classified, lumbosacral region, initial encounter for fracture (principal); M47.817 Spondylosis without myelopathy or radiculopathy, lumbosacral region; M46.84 Other specified inflammatory spondylopathies, thoracic region; M46.87 Other specified inflammatory spondylopathies, lumbosacral region; M51.27 Other intervertebral disc displacement, lumbosacral region; M25.78 Osteophyte, vertebrae
CPT/HCPCS: 72148

== ENCOUNTER → 2019-11-25 | Outpatient (CLI) | payer MEDICARE ==
[~2019-11-25] MED LIST changes: +ASPI81TA50 PO; -CETI10TA22 PO; +CETI10TA24 PO; +IOHEXOL 180 MG/ML 10 ML VIAL. ONE; +LEVO250T7 PO; +ONDA-84 PO; -ONDA4TAB11 PO; +methylPREDNISolone ACETATE 40 MG/ML VIAL. ONE; +methylPREDNISolone ACETATE 80 MG/ML VIAL. ONE
[2019-11-25 11:00] VITALS: BP 171/85
--- NOTE | 2019-11-26 00:09 | PAIN ---
DATE OF SERVICE: 11/25/2019 INITIAL CONSULTATION FOR PAIN CLINIC CHIEF COMPLAINT: Low back and bilateral lower extremity pain. HISTORY OF PRESENT ILLNESS: This is a 74-year-old female who presents with history of pain for many years in the low back, bilateral lower extremities, worse over the past 2 years or so, increasing in the posterior gluteus, posterior thighs, posterior calves, worse on the right than the left, but present bilaterally. The patient reports no specific injury or action that she is aware of it, but getting worse over time. Describes the pain as sharp, stabbing, throbbing, shooting across the back, intermittent in intensity, but always present, burning and stinging, radiating and shooting into the leg with some tingling in the feet and legs as well, mostly in the posterior aspect as well as the lateral anterior aspect of the thighs. The patient reports she has had physical therapy in the past, trigger point injections as well about 2 years ago, which helped to a moderate extent for a short period of time. She has taken hydrocodone as well as ibuprofen, which helps only to about 40-50%. The patient did have MRI scan of the lumbar spine showing multilevel degenerative disk disease as well as disk bulge at L3-L4, L4-L5 and L5-S1 with central disk extrusion and disk protrusion at L3-L4, disk extrusion at L4-L5 with severe right and moderate left neural foraminal stenosis, severe right lateral recess stenosis and severe spinal canal stenosis at L5-S1, shows moderate left and mild right neural foraminal stenosis with lateral left recess stenosis may affect the traversing left S1 nerve root. The patient reports the pain awakens her from sleep at night at least twice a night, does not affect her bowel or bladder continence, but can cause some increased frequency with the pain with urinary frequency. The patient reports it does affect her ability to walk. She uses a walker most times; however, does not have it with her today. She is using a cane. PAST MEDICAL HISTORY: Significant for COPD, hypertension, coronary artery disease with stents placed, arthritis, history of falls. PREVIOUS SURGERY: Include cataract extraction, LASIK surgery and tubal ligation. CURRENT MEDICATIONS: Include simvastatin, metoprolol, multivitamins, Plavix, daily baby aspirin, Combivent inhaler, Protonix, calcium, vitamin B, Zofran, hydrocodone, losartan, ipratropium, isosorbide, Mucinex, fish oil, roflumilast, cetirizine and zolpidem. ALLERGIES: The patient has no known drug allergies. FAMILY HISTORY: Significant for cancer, hypertension and heart disease. SOCIAL HISTORY: The patient drinks alcohol about 2-5 drinks a month. Continues to smoke, but quit a few weeks ago, had a [id number] history prior to that. Does not use any illegal, illicit or recreational drugs. She is , lives with her spouse, lives locally in [place], [place]. Reports she is currently retired. REVIEW OF SYSTEMS: The patient's review of systems is positive for those items mentioned in history of present illness. All systems reviewed and otherwise negative. It is complete, full and well documented on the patient's chart. PHYSICAL EXAMINATION: VITAL SIGNS: The patient's blood pressure is 187/98, pulse 101, respirations 18, temperature 97.8 degrees Fahrenheit, height is 5 feet 1 inch, weight is 146 pounds. GENERAL: The patient is awake, alert, oriented, appropriate, very pleasant demeanor. The patient is accompanied by her daughter and her . HEENT: Shows normocephalic, atraumatic. The patient is wearing nasal cannula oxygen at 2 liters. HEENT: Normocephalic, atraumatic. Extraocular movements are intact and symmetrical. Oral cavity: Mucous membranes moist and pink. Dentition is intact. NECK: Shows anterior throat supple without palpable lymphadenopathy noted. Swallow reflex symmetrical. CHEST: Shows normal on inspection. Breath sounds are coarse and distant, but clear bilaterally without rales, rhonchi or wheezes. HEART: Shows S1 and S2 clear. ABDOMEN: Obese, soft, nontender and nondistended. No palpable organomegaly is noted. No rebound or guarding demonstrated. BACK: Shows spine grossly in the midline. Slight exaggeration of thoracic kyphosis and some minor flattening of cervical lordotic curvature and lumbar lordotic curvature. No previous surgical scars noted. Lumbar paraspinous muscle shows symmetrical on inspection, on palpation shows some moderate tenderness diffusely, but only diffusely without significant radiation. The patient has good rotational motion of lumbar spine, both laterally as well as extension and flexion without significant pain reported. No tenderness over the spinous processes, sacrum or sacroiliac regions. EXTREMITIES: The patient's lower extremities shows deep tendon reflexes 1+ in the patellar and tendo-calcaneus tendons. Motor exam is approximately 4 on a scale of 5, but equal and symmetrical dorsiflexion, extension, quadriceps and hamstring flexion. Peripheral pulses are 1+ posterior tibia. No peripheral edema is noted. Lower extremities are warm and dry to touch, equal in color and appearance. The patient's straight leg raise noted to be mildly positive bilaterally at about 40 degrees, decreased with knee flexion. Gaenslen's and Doni's maneuvers are grossly negative bilaterally. The patient is able to stand, has very significant difficulty standing from a seated position that requires use of the arms of the chair to push up with her hands to get to a standing position and has difficulty trying to stand on her toes. She loses balance very quickly. Walks with a shuffling gait and has some difficulty with proprioception in the lower extremities and prefers to look at her feet while she is walking, which is causing a forward leaning and flexed position, again with a cane in her right hand. SKIN: Shows warm and dry, good turgor. No edema. No sores or rashes throughout. IMPRESSION: 1. This is a 74-year-old female with long history of low back pain, bilateral lower extremity pain for about 20 years or so, worse over the past 2 years. 2. MRI scan of lumbar spine as noted. 3. Arthritis. 4. Hypertension. 5. Chronic obstructive pulmonary disease with oxygen dependency. PLAN: Options were discussed with the patient, the patient's daughter and her including conservative medical managements, continued physical therapies, interventional techniques and she would like to pursue interventional techniques. We discussed a lumbar epidural steroid injection using description as well as anatomical models to describe the procedure. The patient reports she has been off of her Plavix and does indeed have clearance from her operations consultant and her daughter has written evidence of this with her. She is off it for just over 7 days now. She would like to proceed with a lumbar epidural steroid injection using description as well as anatomical models to describe the procedure. Risks were discussed including but not limited to bleeding, infection, possibility of epidural hematoma, subsequent neurological compromise, dural puncture, headaches, spinal cord and/or nerve damage, side effects of steroid medication and poor results regarding pain control. The patient understands and wished to proceed. The patient will return to clinic in approximately 2 weeks for followup. She was counseled on return appointment, activity level and side effects to be aware of. DIAGNOSES: Lumbar radiculopathy with lumbar degenerative disk disease and lumbar spinal stenosis. PROCEDURE: Lumbar epidural steroid injection, translaminar approach at the L4-L5 level using C-arm fluoroscopic guidance under sterile prep and drape using local anesthetic. MEDICATION INJECTED: A total of 120 mg Depo-Medrol plus 10 mL of preservative-free normal saline and 2 mL of contrast. CONDITION AT DISCHARGE: Stable. The patient tolerated procedure well, had no complications. GREGORIO CUMMINS MD DR: SENIA/lazaro JOB#: [id number] / [id number] HELEN Montanez MD
== END ==
LOC: PNCL 13:04
PROVIDERS: ATTEND Anesthesiology
DX: M51.16 Intervertebral disc disorders with radiculopathy, lumbar region (principal); M48.061 Spinal stenosis, lumbar region without neurogenic claudication; J44.9 Chronic obstructive pulmonary disease, unspecified; I10 Essential (primary) hypertension; F17.210 Nicotine dependence, cigarettes, uncomplicated; Z87.39 Personal history of other diseases of the musculoskeletal system and connective tissue; Z98.51 Tubal ligation status; Z98.49 Cataract extraction status, unspecified eye; Z72.89 Other problems related to lifestyle; Z96.1 Presence of intraocular lens
CPT/HCPCS: 62323; J1030; J1040; Q9965

== ENCOUNTER 2019-12-11 10:42 | Inpatient (IN) | payer MEDICARE ==
[2019-12-11] VITALS (16 sets, daily range): BP systolic 100–140; BP diastolic 51–77
[~2019-12-11] VITALS: Ht 154.9 cm; Wt 70.6 kg
[~2019-12-11 10:42] MED LIST changes: +CLAR-7 PO; -CLAR500T PO; -IOHEXOL 180 MG/ML 10 ML VIAL. ONE; -methylPREDNISolone ACETATE 40 MG/ML VIAL. ONE; -methylPREDNISolone ACETATE 80 MG/ML VIAL. ONE
[2019-12-11] MEDS ORDERED: methylPREDNISolone SOD SUCC PF 125 MG/2 ML VIAL. IV ONE (11:00)
[2019-12-11] MEDS ORDERED: IPRATRPIUM/ALBUTEROL 0.5/2.5MG 3 ML NEBU. NEB ONE (11:00)
[2019-12-11 11:03] LABS: BASO % 0 % (0-3); EOS % 0 % (0-3); HEMATOCRIT 38.1 % (36.0-47.0); HEMOGLOBIN 12.2 g/dL (12.0-15.5); LYMPH # 0.8 x10^3/uL (1.0-4.8); LYMPH % 7 % (24-48); MEAN CORPUSCULAR HEMOGLOBIN 25 pg (25-35); MEAN CORPUSCULAR HGB CONC 32 g/dL (31-37); MEAN CORPUSCULAR VOLUME 78 fL (79-100); MONO # 0.6 x10^3/uL (0.0-1.1); MONO % 5 % (0-9); NEUT # 10.5 x10^3/uL (1.8-7.7); NEUT % 88 % (31-73); PLATELET COUNT 254 x10^3/uL (140-400); RED BLOOD COUNT 4.86 x10^6/uL (3.50-5.40); RED CELL DISTRIBUTION WIDTH 19.3 % (11.5-14.5); WHITE BLOOD COUNT 11.9 x10^3/uL (4.0-11.0)
[2019-12-11 11:14] LABS: PROTHROMBIN TIME PATIENT 12.7 SEC (11.7-14.0)
[2019-12-11 11:16] LABS: CALCIUM 8.9 mg/dL (8.5-10.1); CREATININE 1.1 mg/dL (0.6-1.0); GFR 48.8; POTASSIUM 3.3 mmol/L (3.5-5.1)
[2019-12-11 11:22] LABS: ALBUMIN 3.3 g/dL (3.4-5.0); ALBUMIN/GLOBULIN RATIO 0.9 (1.0-1.7); MAGNESIUM 1.7 mg/dL (1.8-2.4); TOTAL BILIRUBIN 0.3 mg/dL (0.2-1.0); TOTAL PROTEIN 6.8 g/dL (6.4-8.2)
[2019-12-11] MEDS ORDERED: dilTIAZem IV PUSH 25 MG/5 ML VIAL IVP ONE (11:30)
[2019-12-11 11:39] LABS: % LYMPHS 3 % (24-48); % MONOS 2 % (0-10); % SEGS 95 % (35-66); PLT ESTIMATE ADEQUATE (ADEQUATE)
--- NOTE | 2019-12-11 11:39 | PHYS DOC ---
Past Medical History Past Medical History: CHF, COPD, High Cholesterol, Hypertension, Other Additional Past Medical Histor: SEASONAL ALLERGIES Past Surgical History: Other Additional Past Surgical Histo: cardiac cath with stents Additional Information: 0.5 PPD Alcohol Use: Sober Drug Use: None Adult General Chief Complaint Chief Complaint: SHORTNESS OF BREATH HPI HPI Patient is a 74 year old female who was brought here by EMS from home due to trouble breathing. Patient has COPD, she is on oxygen at home all the time, her oxygen machine was making lot of noise last night so she turned it off. She slept all night without oxygen on. This morning, she woke up with respiratory distress. EMS said her oxygen saturation was 80% on room air when they got there. They Put her on a nonrebreather and gave her DuoNeb treatment. Her heart rate went up to 160 beats per minutes. Patient is scheduled to have an epidural injection on Saturday. Patient was told not to take plavix until after the epidural injection for her chronic back pain. All other ROS is negative unless otherwise noted in HPI Review of Systems Review of Systems See above Current Medications Current Medications Current Medications Medications (Trade) Dose Ordered Sig/Home Start Time Stop Time Status Last Admin Dose Admin Albuterol/ Ipratropium (Duoneb) 3 ml RTQID 12/11/19 16:00 12/12/19 15:59 Diltiazem HCl (Cardizem Iv Push) 20 mg 1X ONCE 12/11/19 11:30 12/11/19 11:31 DC 12/11/19 11:34 20 MG Diltiazem HCl 125 mg/Sodium Chloride 125 ml @ 5 mls/hr CONT PRN 12/11/19 11:30 12/11/19 11:40 5 MLS/HR Magnesium Sulfate 50 ml @ 25 mls/hr 1X ONCE 12/11/19 13:00 12/11/19 14:59 Methylprednisolone Sodium Succinate (SOLU-Medrol 125MG VIAL) 125 mg 1X ONCE 12/11/19 11:00 12/11/19 11:01 DC 12/11/19 11:01 125 MG Ondansetron HCl (Zofran) 4 mg PRN Q8HRS PRN 12/11/19 13:15 12/12/19 13:14 Potassium Chloride (Klor-Con) 40 meq 1X ONCE 12/11/19 12:15 12/11/19 12:16 DC 12/11/19 12:17 40 MEQ Sodium Chloride 1,000 ml @ 1,000 mls/hr 1X ONCE 12/11/19 12:00 12/11/19 12:59 DC 12/11/19 11:47 1,000 MLS/HR Allergies Allergies Allergies Coded Allergies Type Severity Reaction Last Updated Verified No Known Drug Allergies 02/17/16 No Physical Exam Physical Exam See above Constitutional: Well developed, well nourished, MODERATE acute distress, non- toxic appearance. [] HENT: Normocephalic, atraumatic, bilateral external ears normal, oropharynx moist, no oral exudates, nose normal. [] Eyes: PERRLA, EOMI, conjunctiva normal, no discharge. [] Neck: Normal range of motion, no tenderness, supple, no stridor. [] Cardiovascular: Tachycardia, irregular irregular rhythm, no murmur [] Lungs & Thorax: diffused wheezing in all lung mckeon, IN respiratory distress, tachypnia. Abdomen: Bowel sounds normal, soft, no tenderness, no masses, no pulsatile masses. [] Skin: Warm, dry, no erythema, no rash. [] Back: No tenderness, no CVA tenderness. [] Extremities: No tenderness, no cyanosis, no clubbing, ROM intact, no edema. [] Neurologic: Alert and oriented X 3, normal motor function, normal sensory function, no focal deficits noted. [] Psychologic: Affect normal, judgement normal, mood normal. [] Current Patient Data Vital Signs Vital Signs Date Time Temp Pulse Resp B/P (MAP) Pulse Ox O2 Delivery O2 Flow Rate FiO2 12/11/19 12:41 96 BiPAP/CPAP 12/11/19 12:34 130 31 151/70 (97) 12/11/19 10:42 100.3 100.3 Lab Values Laboratory Tests Test 12/11/19 10:53 12/11/19 12:02 White Blood Count 11.9 x10^3/uL (4.0-11.0) H Red Blood Count 4.86 x10^6/uL (3.50-5.40) Hemoglobin 12.2 g/dL (12.0-15.5) Hematocrit 38.1 % (36.0-47.0) Mean Corpuscular Volume 78 fL (79-100) L Mean Corpuscular Hemoglobin 25 pg (25-35) Mean Corpuscular Hemoglobin Concent 32 g/dL (31-37) Red Cell Distribution Width 19.3 % (11.5-14.5) H Platelet Count 254 x10^3/uL (140-400) Neutrophils (%) (Auto) 88 % (31-73) H Lymphocytes (%) (Auto) 7 % (24-48) L Monocytes (%) (Auto) 5 % (0-9) Eosinophils (%) (Auto) 0 % (0-3) Basophils (%) (Auto) 0 % (0-3) Neutrophils # (Auto) 10.5 x10^3/uL (1.8-7.7) H Lymphocytes # (Auto) 0.8 x10^3/uL (1.0-4.8) L Monocytes # (Auto) 0.6 x10^3/uL (0.0-1.1) Eosinophils # (Auto) 0.0 x10^3/uL (0.0-0.7) Basophils # (Auto) 0.0 x10^3/uL (0.0-0.2) Segmented Neutrophils % 95 % (35-66) H Lymphocytes % 3 % (24-48) L Monocytes % 2 % (0-10) Platelet Estimate Adequate (ADEQUATE) Prothrombin Time 12.7 SEC (11.7-14.0) Prothrombin Time INR 1.0 (0.8-1.1) Activated Partial Thromboplast Time 32 SEC (24-38) Sodium Level 137 mmol/L (136-145) Potassium Level 3.3 mmol/L (3.5-5.1) L Chloride Level 98 mmol/L (98-107) Carbon Dioxide Level 27 mmol/L (21-32) Anion Gap 12 (6-14) Blood Urea Nitrogen 23 mg/dL (7-20) H Creatinine 1.1 mg/dL (0.6-1.0) H Estimated GFR (Cockcroft-Gault) 48.8 BUN/Creatinine Ratio 21 (6-20) H Glucose Level 108 mg/dL (70-99) H Calcium Level 8.9 mg/dL (8.5-10.1) Magnesium Level 1.7 mg/dL (1.8-2.4) L Total Bilirubin 0.3 mg/dL (0.2-1.0) Aspartate Amino Transferase (AST) 13 U/L (15-37) L Alanine Aminotransferase (ALT) 13 U/L (14-59) L Alkaline Phosphatase 61 U/L (46-116) Troponin I Quantitative < 0.017 ng/mL (0.000-0.055) UF-Zqp-K-Type Natriuretic Peptide 584 pg/mL (0-124) H Total Protein 6.8 g/dL (6.4-8.2) Albumin 3.3 g/dL (3.4-5.0) L Albumin/Globulin Ratio 0.9 (1.0-1.7) L O2 Saturation 97 % (92-99) Arterial Blood pH 7.46 (7.35-7.45) H Arterial Blood pCO2 at Patient Temp 33 mmHg (35-46) L Arterial Blood pO2 at Patient Temp 105 mmHg (65-108) Arterial Blood HCO3 23 mmol/L (21-28) Arterial Blood Base Excess 0 mmol/L (-3-3) FiO2 40 Laboratory Tests 12/11/19 10:53 Laboratory Tests 12/11/19 10:53 EKG EKG EKG RATE OF 167 BPM, AFIB WITH RVR. [] Radiology/Procedures Radiology/Procedures [][facility] [address] [place] [address] IMAGING REPORT Signed PATIENT: DARRION MAYER ACCOUNT: [id number] : 1945 LOCATION: ER AGE: 74 SEX: F EXAM STATUS: PRE ER ORD. PHYSICIAN: MYRA SALINAS DO REASON: SOA PROCEDURE: PORTABLE CHEST 1V EXAM: Chest, single view. HISTORY: Shortness of breath. COMPARISON: 11/20/2019 FINDINGS: A frontal view of the chest is obtained. There is no infiltrate, pleural effusion or pneumothorax. There is stable enlargement of the cardiac silhouette. There are healed rib fractures. IMPRESSION: No acute pulmonary finding. Electronically signed by: Lexis Smith MD (12/11/2019 11:36 AM) [facility] [place] DICTATED and SIGNED BY: LEXIS SMITH MD DATE: 12/11/19 1132 Course & Med Decision Making Course & Med Decision Making Pertinent Labs and Imaging studies reviewed. (See chart for details) Patient is a 74-year-old female who was brought here due to respiratory distress, patient was put on BiPAP, she was doing better. Patient was found to have atrial fibrillation with RVR, she was given Cardizem IV bolus and she was placed on a Cardizem drip. Patient will be admitted to hospital for further evaluation and treatment. Dragon Disclaimer Dragon Disclaimer This electronic medical record was generated, in whole or in part, using a voice recognition dictation system. Departure Departure Impression: Primary Impression: COPD exacerbation Additional Impression: Atrial fibrillation with RVR Disposition: ADMITTED INPATIENT Admitting Physician: Helen Welsh Referrals: HELEN WELSH MD (PCP) Problem Qualifiers MYRA SALINAS DO Dec 11, 2019 11:39
[2019-12-11] MEDS: dilTIAZem INJ 125 MG in IV NORMAL SALINE 100ML 100 ML IV PRN ×2 (11:40→20:31)
[2019-12-11] MEDS ORDERED: IV NORMAL SALINE 1000ML BAG 1,000 ML IV ONE (12:00)
[2019-12-11 12:01] LABS: BASE EXCESS ABG 0 mmol/L (-3-3); HCO3 ABG 23 mmol/L (21-28); PCO2 ABG 33 mmHg (35-46); PO2 ABG 105 mmHg (65-108); SAT O2 ABG 97 % (92-99)
[2019-12-11 12:06] LABS: FIO2 ABG 40
[2019-12-11] MEDS ORDERED: POTASSIUM CHLORIDE 20 MEQ TABLET.ER. PO ONE (12:15)
[2019-12-11] MEDS ORDERED: MAGNESIUM SULFATE 2GM 50 ML IV ONE (13:00)
[2019-12-11] MEDS ORDERED: ONDANSETRON PF 4 MG/2 ML VIAL. IV PRN (13:15)
--- NOTE | 2019-12-11 13:53 | EKG ---
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
[2019-12-11] MEDS ORDERED: ASPIRIN ENTERIC COATED 325 MG TABLET.DR. PO ONE (14:45)
[2019-12-11] MEDS: IPRATRPIUM/ALBUTEROL 0.5/2.5MG 3 ML NEBU. NEB SCH ×2 (15:03→20:51)
--- NOTE | 2019-12-11 15:15 | NUR ---
Patient arrived to room 258 via bed, transferred to bed with minimal assist. Patient very short of breath, on 2L NC, Vitals stable, Magnesium and Diltizem gtt currently running. Patient accompanied by spouse and daughter. Oriented to room, call light in reach. Will continue to monitor.
[2019-12-11] MEDS ORDERED: C.DIFF MED SCREEN BY RX. MC ONE (15:30)
[2019-12-11] MEDS ORDERED: BUDE10.2 IH (16:07)
[2019-12-11] MEDS ORDERED: UMEC1DIS IH (16:07)
[2019-12-11] MEDS ORDERED: ONDANSETRON ODT 4 MG TAB.RAPDIS. PO PRN (16:30)
[2019-12-11] MEDS: CALCIUM CARB/VIT D3 500/200 TABLET. PO SCH (17:14)
[2019-12-11] MEDS: HYDROcodone/APAP 7.5/325MG 1 TAB TABLET PO PRN (17:14)
[2019-12-11] MEDS ORDERED: CHLO25TA10 PO (17:50)
[2019-12-11] MEDS: ROFLUMILAST 500 MCG TABLET. PO SCH (17:55)
--- NOTE | 2019-12-11 18:12 | CONS ---
DATE OF CONSULTATION: 12/11/2019 REASON FOR CONSULTATION: Atrial fibrillation/supraventricular tachycardia. CONSULTING PHYSICIAN: Dr. Welsh. HISTORY OF PRESENT ILLNESS: The patient is a pleasant 74-year-old woman who has a past medical history as noted below, coming into the hospital with acute onset of exertional dyspnea and rest dyspnea. Unfortunately, she has an oxygen machine that was not working at home in the last 12 hours or so, when she went to bed last night, she did not have her oxygen therapy. Upon arrival to the ER, she was noted to be hypoxic, appropriately treated, and admitted to the hospital for further evaluation. Upon evaluation in the ER, she was noted to have tachyarrhythmia with heart rate up to the 160s and presumed to be atrial fibrillation and she was admitted for further evaluation. At baseline, the patient has severe COPD. She has been seen at the [facility] by Dr. Canales for history of coronary artery disease and status post PCI x 3 stents per her most recent notes. PAST MEDICAL HISTORY: 1. Coronary artery disease, status post PCI, unknown anatomy. 2. Hypertension. 3. Dyslipidemia. 4. Severe COPD. 5. Peripheral arterial disease with a known occlusion of the right superficial femoral artery. SOCIAL HISTORY: She smokes approximately a pack a day. No excessive alcohol use. No illicit drug use. She lives with her family. FAMILY HISTORY: Noncontributory. CURRENT CARDIOVASCULAR MEDICATIONS: 1. Hydrochlorothiazide 12.5 mg daily. 2. Losartan 100 mg daily. 3. Imdur 60 mg daily. 4. Simvastatin 20 mg daily. 5. Diltiazem 50 mg drip per hour at this time. ALLERGIES: No known drug allergies. REVIEW OF SYSTEMS: Negative unless otherwise mentioned above in HPI. Specifically, the patient denies any fevers, chills, exposure to sick contacts. No angina. PHYSICAL EXAMINATION: VITAL SIGNS: Afebrile, 120, 28, 140/62, 94% on 2 L via nasal cannula. GENERAL: She is in moderate distress from difficulty with breathing. She is tachypneic. LUNGS: Bilateral lung mckeon are notable for severe diffuse wheezing. CARDIAC: Reveals a regular heart rhythm without any obvious murmurs, rubs, or gallops. ABDOMEN: Obese, protuberant without any obvious fluid wave. EXTREMITIES: Lower extremities without any edema. 2+ radial pulses and dorsalis pedis pulses are 1+. DIAGNOSTIC STUDIES: White blood cell count 11.9. Platelets 254. ABG 7.46/33/105 on 40% FiO2. INR 1.0. Creatinine 1.1 with potassium of 3.3. Troponin negative x 1. BNP mildly elevated at 584. TSH within normal limits. Chest x-ray without any acute focal infiltrates. Echocardiogram performed in 07/2019 reveals normal LV systolic function without any obvious wall motion abnormalities. Cardiac catheterization in 08/2018 revealed normal left-sided filling pressures with dtancixa-ks-[id number] triple vessel disease with patent stents in the circumflex. At that time, she had a negative IFR study of the LAD and RCA. IMPRESSION: 1. Acute hypoxic respiratory failure secondary to chronic obstructive pulmonary disease exacerbation. 2. Chronic diastolic heart failure, currently compensated. 3. Coronary artery disease, currently without any angina. 4. Hypertension, currently stable. 5. Paroxysmal supraventricular tachycardia, most likely sinus tachycardia, but cannot rule out intermittent atrial tachycardia/flutter. RECOMMENDATIONS: 1. At this present time, we would continue Cardizem drip to help alleviate some of her atrial tachycardia, which may be causing some worsening shortness of breath. 2. Pulmonary consultation with aggressive pulmonary toilet and treatment for her severe COPD. At this present time, no further cardiovascular testing is necessary. Supportive care. DONNA FISHMAN MD DR: JAILYN/lazaro JOB#: [id number] / [id number]
--- NOTE | 2019-12-11 18:25 | PDOC ---
PULMONARY PROGRESS NOTES Vitals Vital Signs Date Time Temp Pulse Resp B/P (MAP) Pulse Ox O2 Delivery O2 Flow Rate FiO2 12/11/19 17:14 24 12/11/19 15:30 Nasal Cannula 2.0 12/11/19 15:04 93 12/11/19 15:00 98.2 120 140/62 (88) 98.2 General: Alert, No acute distress HEENT: Other Lungs: Wheezing Cardiovascular: S1, S2 Abdomen: Soft, Non-tender Extremities: No Edema Labs Laboratory Tests Test 12/11/19 10:53 12/11/19 12:02 White Blood Count 11.9 x10^3/uL (4.0-11.0) Red Blood Count 4.86 x10^6/uL (3.50-5.40) Hemoglobin 12.2 g/dL (12.0-15.5) Hematocrit 38.1 % (36.0-47.0) Mean Corpuscular Volume 78 fL (79-100) Mean Corpuscular Hemoglobin 25 pg (25-35) Mean Corpuscular Hemoglobin Concent 32 g/dL (31-37) Red Cell Distribution Width 19.3 % (11.5-14.5) Platelet Count 254 x10^3/uL (140-400) Neutrophils (%) (Auto) 88 % (31-73) Lymphocytes (%) (Auto) 7 % (24-48) Monocytes (%) (Auto) 5 % (0-9) Eosinophils (%) (Auto) 0 % (0-3) Basophils (%) (Auto) 0 % (0-3) Neutrophils # (Auto) 10.5 x10^3/uL (1.8-7.7) Lymphocytes # (Auto) 0.8 x10^3/uL (1.0-4.8) Monocytes # (Auto) 0.6 x10^3/uL (0.0-1.1) Eosinophils # (Auto) 0.0 x10^3/uL (0.0-0.7) Basophils # (Auto) 0.0 x10^3/uL (0.0-0.2) Segmented Neutrophils % 95 % (35-66) Lymphocytes % 3 % (24-48) Monocytes % 2 % (0-10) Platelet Estimate Adequate (ADEQUATE) Prothrombin Time 12.7 SEC (11.7-14.0) Prothromb Time International Ratio 1.0 (0.8-1.1) Activated Partial Thromboplast Time 32 SEC (24-38) Sodium Level 137 mmol/L (136-145) Potassium Level 3.3 mmol/L (3.5-5.1) Chloride Level 98 mmol/L (98-107) Carbon Dioxide Level 27 mmol/L (21-32) Anion Gap 12 (6-14) Blood Urea Nitrogen 23 mg/dL (7-20) Creatinine 1.1 mg/dL (0.6-1.0) Estimated GFR (Cockcroft-Gault) 48.8 BUN/Creatinine Ratio 21 (6-20) Glucose Level 108 mg/dL (70-99) Calcium Level 8.9 mg/dL (8.5-10.1) Magnesium Level 1.7 mg/dL (1.8-2.4) Total Bilirubin 0.3 mg/dL (0.2-1.0) Aspartate Amino Transf (AST/SGOT) 13 U/L (15-37) Alanine Aminotransferase (ALT/SGPT) 13 U/L (14-59) Alkaline Phosphatase 61 U/L (46-116) Troponin I Quantitative < 0.017 ng/mL (0.000-0.055) JH-Giv-M-Type Natriuretic Peptide 584 pg/mL (0-124) Total Protein 6.8 g/dL (6.4-8.2) Albumin 3.3 g/dL (3.4-5.0) Albumin/Globulin Ratio 0.9 (1.0-1.7) Thyroid Stimulating Hormone (TSH) 0.491 uIU/mL (0.358-3.74) O2 Saturation 97 % (92-99) Arterial Blood pH 7.46 (7.35-7.45) Arterial Blood pCO2 at Patient Temp 33 mmHg (35-46) Arterial Blood pO2 at Patient Temp 105 mmHg (65-108) Arterial Blood HCO3 23 mmol/L (21-28) Arterial Blood Base Excess 0 mmol/L (-3-3) FiO2 40 Laboratory Tests Test 12/11/19 10:53 12/11/19 12:02 White Blood Count 11.9 x10^3/uL (4.0-11.0) Red Blood Count 4.86 x10^6/uL (3.50-5.40) Hemoglobin 12.2 g/dL (12.0-15.5) Hematocrit 38.1 % (36.0-47.0) Mean Corpuscular Volume 78 fL (79-100) Mean Corpuscular Hemoglobin 25 pg (25-35) Mean Corpuscular Hemoglobin Concent 32 g/dL (31-37) Red Cell Distribution Width 19.3 % (11.5-14.5) Platelet Count 254 x10^3/uL (140-400) Neutrophils (%) (Auto) 88 % (31-73) Lymphocytes (%) (Auto) 7 % (24-48) Monocytes (%) (Auto) 5 % (0-9) Eosinophils (%) (Auto) 0 % (0-3) Basophils (%) (Auto) 0 % (0-3) Neutrophils # (Auto) 10.5 x10^3/uL (1.8-7.7) Lymphocytes # (Auto) 0.8 x10^3/uL (1.0-4.8) Monocytes # (Auto) 0.6 x10^3/uL (0.0-1.1) Eosinophils # (Auto) 0.0 x10^3/uL (0.0-0.7) Basophils # (Auto) 0.0 x10^3/uL (0.0-0.2) Segmented Neutrophils % 95 % (35-66) Lymphocytes % 3 % (24-48) Monocytes % 2 % (0-10) Platelet Estimate Adequate (ADEQUATE) Prothrombin Time 12.7 SEC (11.7-14.0) Prothromb Time International Ratio 1.0 (0.8-1.1) Activated Partial Thromboplast Time 32 SEC (24-38) Sodium Level 137 mmol/L (136-145) Potassium Level 3.3 mmol/L (3.5-5.1) Chloride Level 98 mmol/L (98-107) Carbon Dioxide Level 27 mmol/L (21-32) Anion Gap 12 (6-14) Blood Urea Nitrogen 23 mg/dL (7-20) Creatinine 1.1 mg/dL (0.6-1.0) Estimated GFR (Cockcroft-Gault) 48.8 BUN/Creatinine Ratio 21 (6-20) Glucose Level 108 mg/dL (70-99) Calcium Level 8.9 mg/dL (8.5-10.1) Magnesium Level 1.7 mg/dL (1.8-2.4) Total Bilirubin 0.3 mg/dL (0.2-1.0) Aspartate Amino Transf (AST/SGOT) 13 U/L (15-37) Alanine Aminotransferase (ALT/SGPT) 13 U/L (14-59) Alkaline Phosphatase 61 U/L (46-116) Troponin I Quantitative < 0.017 ng/mL (0.000-0.055) HU-Jdc-P-Type Natriuretic Peptide 584 pg/mL (0-124) Total Protein 6.8 g/dL (6.4-8.2) Albumin 3.3 g/dL (3.4-5.0) Albumin/Globulin Ratio 0.9 (1.0-1.7) Thyroid Stimulating Hormone (TSH) 0.491 uIU/mL (0.358-3.74) O2 Saturation 97 % (92-99) Arterial Blood pH 7.46 (7.35-7.45) Arterial Blood pCO2 at Patient Temp 33 mmHg (35-46) Arterial Blood pO2 at Patient Temp 105 mmHg (65-108) Arterial Blood HCO3 23 mmol/L (21-28) Arterial Blood Base Excess 0 mmol/L (-3-3) FiO2 40 Medications Active Scripts Medications Dose Route/Sig Max Daily Dose Days Date Category Chlorthalidone (Chlorthalidone) 25 Mg Tablet 25 Mg PO DAILY 12/11/19 Reported Anoro Ellipta 62.5-25 Mcg Inh (Umeclidinium Brm/Vilanterol Tr) 1 Each Disk.w.dev 1 Each IH DAILY 12/11/19 Reported Symbicort 160-4.5 Mcg Inhaler (Budesonide/Formoterol Fumarate) 10.2 Gm Hfa.aer.ad 1 Puff IH BID 12/11/19 Reported Clopidogrel (Clopidogrel Bisulfate) 75 Mg Tablet 1 Tab PO DAILY 11/25/19 Reported Aspir-Low (Aspirin) 81 Mg Tablet.dr 1 Tab PO DAILY 11/25/19 Reported Hydrocodone-Apap 7.5-325 (Hydrocodone Bit/Acetaminophen) 1 Tab Tablet 1 Tab PO PRN Q6HRS PRN 08/03/19 Reported Ondansetron Odt (Ondansetron) 4 Mg Tab.rapdis 4 Mg PO BID PRN 08/03/19 Reported Losartan-Hctz 100-12.5 Mg Tab (Losartan/Hydrochlorothiazide) 1 Each Tablet 1 Each PO DAILY 08/03/19 Reported Metoprolol Tartrate 50 Mg Tablet 50 Mg PO BID 08/03/19 Reported Simvastatin 20 Mg Tablet 20 Mg PO DAILY 08/03/19 Reported Probiotic (Lactobacillus Acidophilus) 1 Each Capsule 1 Each PO DAILY 09/08/18 Reported Multivitamins (Multivitamin) 1 Each Tablet 1 Tab PO DAILY 09/08/18 Reported B Complex (Vitamin B Complex) 1 Each Tablet 1 Each PO DAILY 09/08/18 Reported Calcium + D3 Er Tablet (Calcium Carb & Cit/Vitamin D3) 1 Each Tablet.er 1 Each PO DAILY 09/08/18 Reported Protonix (Pantoprazole Sodium) 20 Mg Tablet.dr 40 Mg PO DAILY 09/08/18 Reported Combivent Respimat Inhal (Ipratropium/Albuterol Sulfate) 4 Gm Aer.w.adap 2 Inh IH QID 04/17/17 Reported Fish Oil 1,000 Mg Capsule ([place]-3 Fatty Acids/Fish Oil) 1 Each Capsule 2 Each PO DAILY 01/13/17 Reported Mucinex Dm Er 600-30 Mg Tablet (Guaifenesin/Dextromethorphan) 1 Each Tab.er.12h 2 Tab PO PRN Q12HRS 01/13/17 Reported Zolpidem Tartrate 10 Mg Tablet 1 Tab PO QHS 02/17/16 Reported Zyrtec (Cetirizine Hcl) 10 Mg Tablet 1 Tab PO DAILY 02/17/16 Reported Daliresp (Roflumilast) 500 Mcg Tablet 1 Tab PO DAILY 02/17/16 Reported Isosorbide Mononitrate Er (Isosorbide Mononitrate) 60 Mg Tab.er.24h 1 Tab PO DAILY 02/17/16 Reported Duoneb 0.5 Mg-3 Mg/3 Ml Soln (Ipratropium/Albuterol Sulfate) 3 Ml Ampul.neb 3 Ml IH QID 11/20/13 Reported Impression . ACUTE RESP FAILURE PT VERY SOA USING ACCESSORY MUSCLE AGREE WITH CURRENT RX FEVER SUSPECT VIRAL NO INFILTRATE ON CXR THANKS GINGER FARRELL MD Dec 11, 2019 18:25
--- NOTE | 2019-12-11 18:51 | NUR ---
Emar Documentation: Patient refused Aspirin due to it being on hold for epidural next week. Dr. Faust aware and approves it being held.
[2019-12-11] MEDS: LACTOBACILLUS RHAMNOSUS GG 1 CAPSULE. PO SCH (20:31)
[2019-12-11] MEDS: SYMBICORT INH SCH (20:32)
[2019-12-11] MEDS: COMBIVENT RESPIMAT INH SCH (20:32)
[2019-12-11] MEDS ORDERED: ZOLPIDEM 5 MG TABLET. PO SCH (21:00)
[2019-12-11] MEDS ORDERED: METOPROLOL TART IMMED RELEASE 50 MG TABLET. PO SCH (21:00)
[2019-12-11] MEDS ORDERED: SIMVASTATIN 20 MG TABLET PO SCH (21:00)
[2019-12-11] MEDS: methylPREDNISolone SOD SUCC PF 40 MG/ML VIAL. IV SCH (21:23)
[2019-12-12] VITALS (14 sets, daily range): BP systolic 98–130; BP diastolic 52–82
[2019-12-12] MEDS: HYDROcodone/APAP 7.5/325MG 1 TAB TABLET PO PRN ×3 (01:46→21:03)
--- NOTE | 2019-12-12 04:03 | CONS ---
DATE OF CONSULTATION: 12/11/2019 ATTENDING PHYSICIAN: Dr. Vladimir Welsh. REASON FOR CONSULTATION: The patient is seen in pulmonary consultation at the request of Dr. Welsh for increasing shortness of air. HISTORY OF PRESENT ILLNESS: The patient was recently hospitalized at [facility] back in early part of November. She came in with acute exacerbation of COPD. She at that time was discharged home on taper prednisone, oxygen supplementation. Over the last several days, she has had increasing shortness of breath requiring her nebulized machine more frequently. She was also having some difficulty with oxygen concentrator. She has been having some shaking chills, cold sweats. She was found to have saturations on room air of 80%. She was admitted to the hospital. I was asked to see her in consultation. She was also severely tachycardic. I spoke with Dr. Faust who had seen her in consultation. He felt that this was mainly paroxysmal supraventricular tachycardia related to her acute exacerbation of chronic obstructive pulmonary disease. PAST MEDICAL HISTORY: Chronic respiratory failure, COPD, tobacco dependent, dyslipidemia, hypertension, and seasonal allergies. PAST SURGICAL HISTORY: She has had previous cardiac catheterization with stent placement. ALLERGIES: No known drug allergies. REVIEW OF SYSTEMS: CONSTITUTIONAL: No subjective fever. EYES: No change in visual acuity. HENT: No nasal congestion or sore throat. PULMONARY: As indicated above. CARDIOVASCULAR: No chest pain. No pressure. GASTROINTESTINAL: No nausea, vomiting, diarrhea. GENITOURINARY: No dysuria or frequency. MUSCULOSKELETAL: No localized muscle aches or joint pains. SKIN: No new skin rashes. NEUROLOGIC: No headaches, diplopia or blurred vision. SOCIAL HISTORY: She continues to smoke. HOME MEDICATION: List was reviewed. She is on multiple bronchodilators including Symbicort and Combivent. FAMILY HISTORY: No family history of early lung disorders. PHYSICAL EXAMINATION: GENERAL: The patient was in severe respiratory distress, utilizing accessory muscles to breathe. VITAL SIGNS: T-max was 100.3. HEENT: Eyes, the sclerae were nonicteric. NECK: Jugular venous distention was not elevated. No lymphadenopathy. CHEST: Full expansion. LUNGS: Poor airway flow with expiratory wheeze, prolonged expiratory phase. CARDIOVASCULAR: Regular rate and rhythm with S1, S2, no S3. ABDOMEN: Soft, nontender, nondistended. EXTREMITIES: No clubbing, cyanosis or edema. NEUROLOGICAL: The patient was awake, alert, following commands. A detailed neuro exam was not performed. LABORATORY DATA: Reviewed. Hemoglobin and hematocrit were noted. White count was elevated. Electrolytes were noted. Potassium was low. BUN and creatinine were elevated. BNP was elevated. Arterial blood gas; pH of 7.46, PaCO2 of 33, pO2 of 105. Chest x-ray was reviewed, no acute infiltrates. IMPRESSION: 1. Acute on chronic hypoxemic respiratory failure. 2. Acute exacerbation of chronic obstructive pulmonary disease. 3. Chronic diastolic heart failure appears to be clinically compensated. 4. Coronary artery disease, status post previous stent placement. 5. Paroxysmal supraventricular tachycardia. PLAN: 1. I agree with current medical management, steroids, and nebulized treatments. 2. Oxygen supplementation. 3. Follow Cardiology input. 4. Continue Daliresp. 5. Steroids. 6. Suspect fever is viral in nature. No need for antibiotics at this time. Chest x-ray is clear. I do appreciate the privilege in sharing in the patient's care. GINGER FARRELL MD DR: MANDA/lazaro JOB#: [id number] / [id number]
[2019-12-12] MEDS: methylPREDNISolone SOD SUCC PF 40 MG/ML VIAL. IV SCH ×3 (06:10→13:45)
[2019-12-12] MEDS: dilTIAZem INJ 125 MG in IV NORMAL SALINE 100ML 100 ML IV PRN (06:24)
[2019-12-12] MEDS: CALCIUM CARB/VIT D3 500/200 TABLET. PO SCH (08:00)
[2019-12-12] MEDS ORDERED: DOCUSATE SODIUM 100 MG CAPSULE. PO PRN (08:00)
[2019-12-12] MEDS: IPRATRPIUM/ALBUTEROL 0.5/2.5MG 3 ML NEBU. NEB SCH ×3 (08:00→15:48)
[2019-12-12] MEDS: ISOSORBIDE MONONITRATE ER 30 MG TAB.ER.24H PO SCH (08:39)
[2019-12-12] MEDS: CETIRIZINE HCL 10 MG TABLET. PO SCH (08:42)
[2019-12-12] MEDS: hydroCHLOROthiazide 12.5 MG CAPSULE PO SCH ×2 (08:42→09:00)
[2019-12-12] MEDS: PANTOPRAZOLE 40 MG TABLET.DR. PO SCH (08:43)
[2019-12-12] MEDS: COMBIVENT RESPIMAT INH SCH ×4 (08:45→21:04)
[2019-12-12] MEDS: SYMBICORT INH SCH ×2 (08:45→21:04)
[2019-12-12] MEDS: ANORO ELLIPTA 62.5 MCG INH SCH (08:45)
[2019-12-12] MEDS: VITAMIN B COMPLEX TABLET. PO SCH (08:46)
[2019-12-12] MEDS: MULTIVITAMIN with MINERAL TABLET. PO SCH (08:46)
[2019-12-12] MEDS: LACTOBACILLUS RHAMNOSUS GG 1 CAPSULE. PO SCH ×2 (08:46→21:02)
[2019-12-12] MEDS ORDERED: ROFLUMILAST 500 MCG TABLET. PO SCH (09:00)
[2019-12-12] MEDS ORDERED: LOSARTAN POTASSIUM 50 MG TABLET. PO SCH (09:00)
[2019-12-12] MEDS: guaiFENesin DM 600/30MG 1 TAB TAB.ER.12H PO PRN (09:30)
[2019-12-12] MEDS: CHLORTHALIDONE 25 MG TABLET. PO SCH (09:32)
[2019-12-12] MEDS: ROFLUMILAST 500 MCG TABLET. PO SCH (09:33)
--- NOTE | 2019-12-12 09:40 | NUR ---
Nursing: Patients heat rate between 90-125. Dr. Faust on unit and aware. Goal HR under 130 per Govind
--- NOTE | 2019-12-12 10:33 | HP ---
ADMIT DATE: 12/11/2019 CHIEF COMPLAINT AND HISTORY OF PRESENT ILLNESS: This 74-year-old white female was brought in by EMS due to trouble with breathing. According to her , there was difficulty with the oxygen, but machine was working prior to it and tank was running out of oxygen. She was found with her oxygen saturation of 80%. When they got there, she was quite tachycardic. She was seen in the Emergency Room where she was much more short of breath, had a heart rate in the 160 to 170 with it being atrial fibrillation/flutter versus SVT. She has been off of her Plavix and blood thinners after an epidural this following Saturday. She was admitted to the hospital and placed on a heparin drip, steroids, and pulmonary toilet, feels much better this morning but still was not at her baseline. PAST MEDICAL HISTORY: Remarkable for COPD, atherosclerotic heart disease with prior stenting, hyperlipidemia, hypertension, congestive heart failure, and peripheral arterial disease. MEDICATIONS: Meds were brought with the patient, listed on the computer, and have been addressed. ALLERGIES: She has no known drug allergies. SOCIAL HISTORY: She continues to smoke a pack per day. Drinks beer occasionally. She does not use drugs. and lives at home with her . FAMILY HISTORY: Positive for atherosclerotic heart disease. REVIEW OF SYSTEMS: Remarkable for the increased shortness of breath, wheezing, cough, and feeling like she is shaking inside off and on. PHYSICAL EXAMINATION: GENERAL: She is well-developed and well-nourished white female, in no acute distress, sitting on the bed. VITAL SIGNS: Currently, vital signs are stable. She is afebrile. Pulse is 120 and looks regular with P waves. HEAD, EYES, EARS, NOSE, AND THROAT: Unremarkable. CHEST: Reveals severe diffuse wheezing bilaterally. HEART: Regular rhythm and tachycardic without S3, S4, or murmur. ABDOMEN: Soft and nontender without hepatosplenomegaly or masses. EXTREMITIES: Without cyanosis, clubbing, or edema. NEUROLOGIC: She is intact. DIAGNOSTIC DATA: Chest x-ray shows no acute change. LABORATORY DATA: Labs on admission are essentially unremarkable. White count is 11,900. Creatinine is 1.1. BNP is 584. Troponin is negative. INR is within normal limits. Blood gas shows a pO2 of 105 on 40% FiO2 with a pCO2 of 33 and a pH of 7.46. IMPRESSION: 1. Exacerbation of chronic obstructive pulmonary disease with shortness of breath. 2. Tachyarrhythmia, supraventricular tachycardia versus atrial fibrillation. PLAN: Pulmonary and Cardiology consultation, rate control, pulmonary toilet, and steroids. The patient will be monitored, managed, and treated appropriately. HELEN BARAJAS MD DR: NITIN/lazaro JOB#: [id number] / [id number]
[2019-12-12 11:48] LABS: BASO % 0 % (0-3); EOS % 0 % (0-3); HEMOGLOBIN 9.6 g/dL (12.0-15.5); LYMPH # 0.1 x10^3/uL (1.0-4.8); LYMPH % 1 % (24-48); MEAN CORPUSCULAR HEMOGLOBIN 25 pg (25-35); MEAN CORPUSCULAR HGB CONC 32 g/dL (31-37); MEAN CORPUSCULAR VOLUME 79 fL (79-100); MONO # 0.3 x10^3/uL (0.0-1.1); MONO % 2 % (0-9); NEUT # 15.3 x10^3/uL (1.8-7.7); NEUT % 97 % (31-73); PLATELET COUNT 205 x10^3/uL (140-400); RED BLOOD COUNT 3.82 x10^6/uL (3.50-5.40); RED CELL DISTRIBUTION WIDTH 19.1 % (11.5-14.5); WHITE BLOOD COUNT 15.7 x10^3/uL (4.0-11.0)
[2019-12-12 12:19] LABS: CALCIUM 8.5 mg/dL (8.5-10.1); CREATININE 1.2 mg/dL (0.6-1.0); GFR 44.2
--- NOTE | 2019-12-12 12:39 | PDOC ---
PULMONARY PROGRESS NOTES Subjective feeling much better today, less SOA, denies CP or increased cough remains on N/C experienced A-fib RVR overnight Vitals Vital Signs Date Time Temp Pulse Resp B/P (MAP) Pulse Ox O2 Delivery O2 Flow Rate FiO2 12/12/19 10:45 98.0 120 24 119/56 (77) 96 Nasal Cannula 2.0 98.0 ROS: No Nausea, No Chest Pain, No Abdominal Pain, No Increase Cough General: Alert, No acute distress HEENT: Other Lungs: Wheezing Cardiovascular: Other (irregular ) Abdomen: Soft, Non-tender Neuro Exam: Alert Extremities: No Edema Skin: Warm, Dry Labs Laboratory Tests Test 12/11/19 10:53 12/11/19 12:02 12/12/19 11:40 White Blood Count 11.9 x10^3/uL (4.0-11.0) 15.7 x10^3/uL (4.0-11.0) Red Blood Count 4.86 x10^6/uL (3.50-5.40) 3.82 x10^6/uL (3.50-5.40) Hemoglobin 12.2 g/dL (12.0-15.5) 9.6 g/dL (12.0-15.5) Hematocrit 38.1 % (36.0-47.0) 30.0 % (36.0-47.0) Mean Corpuscular Volume 78 fL (79-100) 79 fL (79-100) Mean Corpuscular Hemoglobin 25 pg (25-35) 25 pg (25-35) Mean Corpuscular Hemoglobin Concent 32 g/dL (31-37) 32 g/dL (31-37) Red Cell Distribution Width 19.3 % (11.5-14.5) 19.1 % (11.5-14.5) Platelet Count 254 x10^3/uL (140-400) 205 x10^3/uL (140-400) Neutrophils (%) (Auto) 88 % (31-73) 97 % (31-73) Lymphocytes (%) (Auto) 7 % (24-48) 1 % (24-48) Monocytes (%) (Auto) 5 % (0-9) 2 % (0-9) Eosinophils (%) (Auto) 0 % (0-3) 0 % (0-3) Basophils (%) (Auto) 0 % (0-3) 0 % (0-3) Neutrophils # (Auto) 10.5 x10^3/uL (1.8-7.7) 15.3 x10^3/uL (1.8-7.7) Lymphocytes # (Auto) 0.8 x10^3/uL (1.0-4.8) 0.1 x10^3/uL (1.0-4.8) Monocytes # (Auto) 0.6 x10^3/uL (0.0-1.1) 0.3 x10^3/uL (0.0-1.1) Eosinophils # (Auto) 0.0 x10^3/uL (0.0-0.7) 0.0 x10^3/uL (0.0-0.7) Basophils # (Auto) 0.0 x10^3/uL (0.0-0.2) 0.0 x10^3/uL (0.0-0.2) Segmented Neutrophils % 95 % (35-66) Lymphocytes % 3 % (24-48) Monocytes % 2 % (0-10) Platelet Estimate Adequate (ADEQUATE) Prothrombin Time 12.7 SEC (11.7-14.0) Prothromb Time International Ratio 1.0 (0.8-1.1) Activated Partial Thromboplast Time 32 SEC (24-38) Sodium Level 137 mmol/L (136-145) 131 mmol/L (136-145) Potassium Level 3.3 mmol/L (3.5-5.1) 4.0 mmol/L (3.5-5.1) Chloride Level 98 mmol/L (98-107) 96 mmol/L (98-107) Carbon Dioxide Level 27 mmol/L (21-32) 22 mmol/L (21-32) Anion Gap 12 (6-14) 13 (6-14) Blood Urea Nitrogen 23 mg/dL (7-20) 28 mg/dL (7-20) Creatinine 1.1 mg/dL (0.6-1.0) 1.2 mg/dL (0.6-1.0) Estimated GFR (Cockcroft-Gault) 48.8 44.2 BUN/Creatinine Ratio 21 (6-20) Glucose Level 108 mg/dL (70-99) 326 mg/dL (70-99) Calcium Level 8.9 mg/dL (8.5-10.1) 8.5 mg/dL (8.5-10.1) Magnesium Level 1.7 mg/dL (1.8-2.4) 2.0 mg/dL (1.8-2.4) Total Bilirubin 0.3 mg/dL (0.2-1.0) Aspartate Amino Transf (AST/SGOT) 13 U/L (15-37) Alanine Aminotransferase (ALT/SGPT) 13 U/L (14-59) Alkaline Phosphatase 61 U/L (46-116) Troponin I Quantitative < 0.017 ng/mL (0.000-0.055) BB-Mfl-O-Type Natriuretic Peptide 584 pg/mL (0-124) Total Protein 6.8 g/dL (6.4-8.2) Albumin 3.3 g/dL (3.4-5.0) Albumin/Globulin Ratio 0.9 (1.0-1.7) Thyroid Stimulating Hormone (TSH) 0.491 uIU/mL (0.358-3.74) O2 Saturation 97 % (92-99) Arterial Blood pH 7.46 (7.35-7.45) Arterial Blood pCO2 at Patient Temp 33 mmHg (35-46) Arterial Blood pO2 at Patient Temp 105 mmHg (65-108) Arterial Blood HCO3 23 mmol/L (21-28) Arterial Blood Base Excess 0 mmol/L (-3-3) FiO2 40 Laboratory Tests Test 12/12/19 11:40 White Blood Count 15.7 x10^3/uL (4.0-11.0) Red Blood Count 3.82 x10^6/uL (3.50-5.40) Hemoglobin 9.6 g/dL (12.0-15.5) Hematocrit 30.0 % (36.0-47.0) Mean Corpuscular Volume 79 fL (79-100) Mean Corpuscular Hemoglobin 25 pg (25-35) Mean Corpuscular Hemoglobin Concent 32 g/dL (31-37) Red Cell Distribution Width 19.1 % (11.5-14.5) Platelet Count 205 x10^3/uL (140-400) Neutrophils (%) (Auto) 97 % (31-73) Lymphocytes (%) (Auto) 1 % (24-48) Monocytes (%) (Auto) 2 % (0-9) Eosinophils (%) (Auto) 0 % (0-3) Basophils (%) (Auto) 0 % (0-3) Neutrophils # (Auto) 15.3 x10^3/uL (1.8-7.7) Lymphocytes # (Auto) 0.1 x10^3/uL (1.0-4.8) Monocytes # (Auto) 0.3 x10^3/uL (0.0-1.1) Eosinophils # (Auto) 0.0 x10^3/uL (0.0-0.7) Basophils # (Auto) 0.0 x10^3/uL (0.0-0.2) Sodium Level 131 mmol/L (136-145) Potassium Level 4.0 mmol/L (3.5-5.1) Chloride Level 96 mmol/L (98-107) Carbon Dioxide Level 22 mmol/L (21-32) Anion Gap 13 (6-14) Blood Urea Nitrogen 28 mg/dL (7-20) Creatinine 1.2 mg/dL (0.6-1.0) Estimated GFR (Cockcroft-Gault) 44.2 Glucose Level 326 mg/dL (70-99) Calcium Level 8.5 mg/dL (8.5-10.1) Magnesium Level 2.0 mg/dL (1.8-2.4) Medications Active Scripts Medications Dose Route/Sig Max Daily Dose Days Date Category Chlorthalidone (Chlorthalidone) 25 Mg Tablet 25 Mg PO DAILY 12/11/19 Reported Anoro Ellipta 62.5-25 Mcg Inh (Umeclidinium Brm/Vilanterol Tr) 1 Each Disk.w.dev 1 Each IH DAILY 12/11/19 Reported Symbicort 160-4.5 Mcg Inhaler (Budesonide/Formoterol Fumarate) 10.2 Gm Hfa.aer.ad 1 Puff IH BID 12/11/19 Reported Clopidogrel (Clopidogrel Bisulfate) 75 Mg Tablet 1 Tab PO DAILY 11/25/19 Reported Aspir-Low (Aspirin) 81 Mg Tablet.dr 1 Tab PO DAILY 11/25/19 Reported Hydrocodone-Apap 7.5-325 (Hydrocodone Bit/Acetaminophen) 1 Tab Tablet 1 Tab PO PRN Q6HRS PRN 08/03/19 Reported Ondansetron Odt (Ondansetron) 4 Mg Tab.rapdis 4 Mg PO BID PRN 08/03/19 Reported Losartan-Hctz 100-12.5 Mg Tab (Losartan/Hydrochlorothiazide) 1 Each Tablet 1 Each PO DAILY 08/03/19 Reported Metoprolol Tartrate 50 Mg Tablet 50 Mg PO BID 08/03/19 Reported Simvastatin 20 Mg Tablet 20 Mg PO DAILY 08/03/19 Reported Probiotic (Lactobacillus Acidophilus) 1 Each Capsule 1 Each PO DAILY 09/08/18 Reported Multivitamins (Multivitamin) 1 Each Tablet 1 Tab PO DAILY 09/08/18 Reported B Complex (Vitamin B Complex) 1 Each Tablet 1 Each PO DAILY 09/08/18 Reported Calcium + D3 Er Tablet (Calcium Carb & Cit/Vitamin D3) 1 Each Tablet.er 1 Each PO DAILY 09/08/18 Reported Protonix (Pantoprazole Sodium) 20 Mg Tablet.dr 40 Mg PO DAILY 09/08/18 Reported Combivent Respimat Inhal (Ipratropium/Albuterol Sulfate) 4 Gm Aer.w.adap 2 Inh IH QID 04/17/17 Reported Fish Oil 1,000 Mg Capsule ([place]-3 Fatty Acids/Fish Oil) 1 Each Capsule 2 Each PO DAILY 01/13/17 Reported Mucinex Dm Er 600-30 Mg Tablet (Guaifenesin/Dextromethorphan) 1 Each Tab.er.12h 2 Tab PO PRN Q12HRS 01/13/17 Reported Zolpidem Tartrate 10 Mg Tablet 1 Tab PO QHS 02/17/16 Reported Zyrtec (Cetirizine Hcl) 10 Mg Tablet 1 Tab PO DAILY 02/17/16 Reported Daliresp (Roflumilast) 500 Mcg Tablet 1 Tab PO DAILY 02/17/16 Reported Isosorbide Mononitrate Er (Isosorbide Mononitrate) 60 Mg Tab.er.24h 1 Tab PO DAILY 02/17/16 Reported Duoneb 0.5 Mg-3 Mg/3 Ml Soln (Ipratropium/Albuterol Sulfate) 3 Ml Ampul.neb 3 Ml IH QID 11/20/13 Reported Impression . IMPRESSION: 1. Acute on chronic hypoxemic respiratory failure. 2. Acute exacerbation of chronic obstructive pulmonary disease. 3. Chronic diastolic heart failure appears to be clinically compensated. 4. Coronary artery disease, status post previous stent placement. 5. Paroxysmal supraventricular tachycardia/ afib rvr 6. Anxiety non specific Plan . PLAN: continue Oxygen supplementation. Follow Cardiology input. Continue Daliresp. cont. Steroids. NEBS Cont. current support add aman Zapata/W GINGER DUNCAN MD Dec 12, 2019 12:39
[2019-12-12] MEDS ORDERED: LORazepam 0.5 MG TABLET PO PRN (13:45)
[2019-12-12] MEDS ORDERED: DEXTROSE 50% 25 GM / 50ML DISP.SYRIN. IV PRN (15:30)
[2019-12-12] MEDS ORDERED: IV DEXTROSE 5% 250 ML BAG. IV PRN (15:30)
[2019-12-12] MEDS ORDERED: INSULIN LISPRO 300 UNITS/3 ML VIAL. SQ SCH (17:00)
[2019-12-12] MEDS: INSULIN LISPRO 300 UNITS/3 ML VIAL. SQ SCH ×2 (17:45→21:07)
[2019-12-12] MEDS ORDERED: ATORVASTATIN CALCIUM 10 MG TABLET. PO SCH (21:00)
[2019-12-13 02:45] VITALS: BP 119/59
[2019-12-13] MEDS ORDERED: IPRATRPIUM/ALBUTEROL 0.5/2.5MG 3 ML NEBU. ONE ×2 (06:34→10:55)
[2019-12-13 07:00] VITALS: BP 121/74
[2019-12-13] MEDS: INSULIN LISPRO 300 UNITS/3 ML VIAL. SQ SCH ×2 (07:30→11:30)
[2019-12-13] MEDS: CALCIUM CARB/VIT D3 500/200 TABLET. PO SCH (08:00)
[2019-12-13] MEDS: CETIRIZINE HCL 10 MG TABLET. PO SCH (08:46)
[2019-12-13] MEDS: guaiFENesin DM 600/30MG 1 TAB TAB.ER.12H PO PRN (08:46)
[2019-12-13] MEDS: ROFLUMILAST 500 MCG TABLET. PO SCH (08:46)
[2019-12-13] MEDS: ISOSORBIDE MONONITRATE ER 30 MG TAB.ER.24H PO SCH (08:47)
[2019-12-13] MEDS: CHLORTHALIDONE 25 MG TABLET. PO SCH (08:47)
[2019-12-13] MEDS: methylPREDNISolone SOD SUCC PF 40 MG/ML VIAL. IV SCH ×2 (08:48→09:00)
[2019-12-13] MEDS: PANTOPRAZOLE 40 MG TABLET.DR. PO SCH (08:49)
[2019-12-13] MEDS: ANORO ELLIPTA 62.5 MCG INH SCH (08:50)
[2019-12-13] MEDS: COMBIVENT RESPIMAT INH SCH (08:50)
[2019-12-13] MEDS: SYMBICORT INH SCH (08:50)
[2019-12-13] MEDS: MULTIVITAMIN with MINERAL TABLET. PO SCH (09:00)
[2019-12-13] MEDS: LACTOBACILLUS RHAMNOSUS GG 1 CAPSULE. PO SCH (09:00)
[2019-12-13] MEDS: VITAMIN B COMPLEX TABLET. PO SCH (09:00)
--- NOTE | 2019-12-13 10:15 | PDOC ---
PULMONARY PROGRESS NOTES Subjective feeling much better today, less SOA, denies CP or increased cough remains on N/C wants to D/C home today Vitals Vital Signs Date Time Temp Pulse Resp B/P (MAP) Pulse Ox O2 Delivery O2 Flow Rate FiO2 12/13/19 08:47 125 12/13/19 07:48 94 Nasal Cannula 2.0 12/13/19 07:00 98.6 18 121/74 (90) 98.6 ROS: No Nausea, No Chest Pain, No Abdominal Pain, No Increase Cough General: Alert, No acute distress HEENT: Other Lungs: Clear Cardiovascular: Other (irregular ) Abdomen: Soft, Non-tender Neuro Exam: Alert Extremities: No Edema Skin: Warm, Dry Labs Laboratory Tests Test 12/11/19 10:53 12/11/19 12:02 12/12/19 11:40 12/12/19 16:32 White Blood Count 11.9 x10^3/uL (4.0-11.0) 15.7 x10^3/uL (4.0-11.0) Red Blood Count 4.86 x10^6/uL (3.50-5.40) 3.82 x10^6/uL (3.50-5.40) Hemoglobin 12.2 g/dL (12.0-15.5) 9.6 g/dL (12.0-15.5) Hematocrit 38.1 % (36.0-47.0) 30.0 % (36.0-47.0) Mean Corpuscular Volume 78 fL (79-100) 79 fL (79-100) Mean Corpuscular Hemoglobin 25 pg (25-35) 25 pg (25-35) Mean Corpuscular Hemoglobin Concent 32 g/dL (31-37) 32 g/dL (31-37) Red Cell Distribution Width 19.3 % (11.5-14.5) 19.1 % (11.5-14.5) Platelet Count 254 x10^3/uL (140-400) 205 x10^3/uL (140-400) Neutrophils (%) (Auto) 88 % (31-73) 97 % (31-73) Lymphocytes (%) (Auto) 7 % (24-48) 1 % (24-48) Monocytes (%) (Auto) 5 % (0-9) 2 % (0-9) Eosinophils (%) (Auto) 0 % (0-3) 0 % (0-3) Basophils (%) (Auto) 0 % (0-3) 0 % (0-3) Neutrophils # (Auto) 10.5 x10^3/uL (1.8-7.7) 15.3 x10^3/uL (1.8-7.7) Lymphocytes # (Auto) 0.8 x10^3/uL (1.0-4.8) 0.1 x10^3/uL (1.0-4.8) Monocytes # (Auto) 0.6 x10^3/uL (0.0-1.1) 0.3 x10^3/uL (0.0-1.1) Eosinophils # (Auto) 0.0 x10^3/uL (0.0-0.7) 0.0 x10^3/uL (0.0-0.7) Basophils # (Auto) 0.0 x10^3/uL (0.0-0.2) 0.0 x10^3/uL (0.0-0.2) Segmented Neutrophils % 95 % (35-66) Lymphocytes % 3 % (24-48) Monocytes % 2 % (0-10) Platelet Estimate Adequate (ADEQUATE) Prothrombin Time 12.7 SEC (11.7-14.0) Prothromb Time International Ratio 1.0 (0.8-1.1) Activated Partial Thromboplast Time 32 SEC (24-38) Sodium Level 137 mmol/L (136-145) 131 mmol/L (136-145) Potassium Level 3.3 mmol/L (3.5-5.1) 4.0 mmol/L (3.5-5.1) Chloride Level 98 mmol/L (98-107) 96 mmol/L (98-107) Carbon Dioxide Level 27 mmol/L (21-32) 22 mmol/L (21-32) Anion Gap 12 (6-14) 13 (6-14) Blood Urea Nitrogen 23 mg/dL (7-20) 28 mg/dL (7-20) Creatinine 1.1 mg/dL (0.6-1.0) 1.2 mg/dL (0.6-1.0) Estimated GFR (Cockcroft-Gault) 48.8 44.2 BUN/Creatinine Ratio 21 (6-20) Glucose Level 108 mg/dL (70-99) 326 mg/dL (70-99) Calcium Level 8.9 mg/dL (8.5-10.1) 8.5 mg/dL (8.5-10.1) Magnesium Level 1.7 mg/dL (1.8-2.4) 2.0 mg/dL (1.8-2.4) Total Bilirubin 0.3 mg/dL (0.2-1.0) Aspartate Amino Transf (AST/SGOT) 13 U/L (15-37) Alanine Aminotransferase (ALT/SGPT) 13 U/L (14-59) Alkaline Phosphatase 61 U/L (46-116) Troponin I Quantitative < 0.017 ng/mL (0.000-0.055) VJ-Lic-U-Type Natriuretic Peptide 584 pg/mL (0-124) Total Protein 6.8 g/dL (6.4-8.2) Albumin 3.3 g/dL (3.4-5.0) Albumin/Globulin Ratio 0.9 (1.0-1.7) Thyroid Stimulating Hormone (TSH) 0.491 uIU/mL (0.358-3.74) O2 Saturation 97 % (92-99) Arterial Blood pH 7.46 (7.35-7.45) Arterial Blood pCO2 at Patient Temp 33 mmHg (35-46) Arterial Blood pO2 at Patient Temp 105 mmHg (65-108) Arterial Blood HCO3 23 mmol/L (21-28) Arterial Blood Base Excess 0 mmol/L (-3-3) FiO2 40 Glucose (Fingerstick) 188 mg/dL (70-99) Test 12/12/19 21:01 12/13/19 07:41 Glucose (Fingerstick) 202 mg/dL (70-99) 143 mg/dL (70-99) Laboratory Tests Test 12/12/19 11:40 12/12/19 16:32 12/12/19 21:01 12/13/19 07:41 White Blood Count 15.7 x10^3/uL (4.0-11.0) Red Blood Count 3.82 x10^6/uL (3.50-5.40) Hemoglobin 9.6 g/dL (12.0-15.5) Hematocrit 30.0 % (36.0-47.0) Mean Corpuscular Volume 79 fL (79-100) Mean Corpuscular Hemoglobin 25 pg (25-35) Mean Corpuscular Hemoglobin Concent 32 g/dL (31-37) Red Cell Distribution Width 19.1 % (11.5-14.5) Platelet Count 205 x10^3/uL (140-400) Neutrophils (%) (Auto) 97 % (31-73) Lymphocytes (%) (Auto) 1 % (24-48) Monocytes (%) (Auto) 2 % (0-9) Eosinophils (%) (Auto) 0 % (0-3) Basophils (%) (Auto) 0 % (0-3) Neutrophils # (Auto) 15.3 x10^3/uL (1.8-7.7) Lymphocytes # (Auto) 0.1 x10^3/uL (1.0-4.8) Monocytes # (Auto) 0.3 x10^3/uL (0.0-1.1) Eosinophils # (Auto) 0.0 x10^3/uL (0.0-0.7) Basophils # (Auto) 0.0 x10^3/uL (0.0-0.2) Sodium Level 131 mmol/L (136-145) Potassium Level 4.0 mmol/L (3.5-5.1) Chloride Level 96 mmol/L (98-107) Carbon Dioxide Level 22 mmol/L (21-32) Anion Gap 13 (6-14) Blood Urea Nitrogen 28 mg/dL (7-20) Creatinine 1.2 mg/dL (0.6-1.0) Estimated GFR (Cockcroft-Gault) 44.2 Glucose Level 326 mg/dL (70-99) Calcium Level 8.5 mg/dL (8.5-10.1) Magnesium Level 2.0 mg/dL (1.8-2.4) Glucose (Fingerstick) 188 mg/dL (70-99) 202 mg/dL (70-99) 143 mg/dL (70-99) Medications Active Scripts Medications Dose Route/Sig Max Daily Dose Days Date Category Chlorthalidone (Chlorthalidone) 25 Mg Tablet 25 Mg PO DAILY 12/11/19 Reported Anoro Ellipta 62.5-25 Mcg Inh (Umeclidinium Brm/Vilanterol Tr) 1 Each Disk.w.dev 1 Each IH DAILY 12/11/19 Reported Symbicort 160-4.5 Mcg Inhaler (Budesonide/Formoterol Fumarate) 10.2 Gm Hfa.aer.ad 1 Puff IH BID 12/11/19 Reported Clopidogrel (Clopidogrel Bisulfate) 75 Mg Tablet 1 Tab PO DAILY 11/25/19 Reported Aspir-Low (Aspirin) 81 Mg Tablet.dr 1 Tab PO DAILY 11/25/19 Reported Hydrocodone-Apap 7.5-325 (Hydrocodone Bit/Acetaminophen) 1 Tab Tablet 1 Tab PO PRN Q6HRS PRN 08/03/19 Reported Ondansetron Odt (Ondansetron) 4 Mg Tab.rapdis 4 Mg PO BID PRN 08/03/19 Reported Losartan-Hctz 100-12.5 Mg Tab (Losartan/Hydrochlorothiazide) 1 Each Tablet 1 Each PO DAILY 08/03/19 Reported Metoprolol Tartrate 50 Mg Tablet 50 Mg PO BID 08/03/19 Reported Simvastatin 20 Mg Tablet 20 Mg PO DAILY 08/03/19 Reported Probiotic (Lactobacillus Acidophilus) 1 Each Capsule 1 Each PO DAILY 09/08/18 Reported Multivitamins (Multivitamin) 1 Each Tablet 1 Tab PO DAILY 09/08/18 Reported B Complex (Vitamin B Complex) 1 Each Tablet 1 Each PO DAILY 09/08/18 Reported Calcium + D3 Er Tablet (Calcium Carb & Cit/Vitamin D3) 1 Each Tablet.er 1 Each PO DAILY 09/08/18 Reported Protonix (Pantoprazole Sodium) 20 Mg Tablet.dr 40 Mg PO DAILY 09/08/18 Reported Combivent Respimat Inhal (Ipratropium/Albuterol Sulfate) 4 Gm Aer.w.adap 2 Inh IH QID 04/17/17 Reported Fish Oil 1,000 Mg Capsule ([place]-3 Fatty Acids/Fish Oil) 1 Each Capsule 2 Each PO DAILY 01/13/17 Reported Mucinex Dm Er 600-30 Mg Tablet (Guaifenesin/Dextromethorphan) 1 Each Tab.er.12h 2 Tab PO PRN Q12HRS 01/13/17 Reported Zolpidem Tartrate 10 Mg Tablet 1 Tab PO QHS 02/17/16 Reported Zyrtec (Cetirizine Hcl) 10 Mg Tablet 1 Tab PO DAILY 02/17/16 Reported Daliresp (Roflumilast) 500 Mcg Tablet 1 Tab PO DAILY 02/17/16 Reported Isosorbide Mononitrate Er (Isosorbide Mononitrate) 60 Mg Tab.er.24h 1 Tab PO DAILY 02/17/16 Reported Duoneb 0.5 Mg-3 Mg/3 Ml Soln (Ipratropium/Albuterol Sulfate) 3 Ml Ampul.neb 3 Ml IH QID 11/20/13 Reported Impression . IMPRESSION: 1. Acute on chronic hypoxemic respiratory failure--improved 2. Acute exacerbation of chronic obstructive pulmonary disease--improved 3. Chronic diastolic heart failure appears to be clinically compensated. 4. Coronary artery disease, status post previous stent placement. 5. Paroxysmal supraventricular tachycardia/ afib rvr --rate controlled 6. Anxiety non specific Plan . PLAN: continue Oxygen supplementation. Follow Cardiology input. Continue Daliresp. cont. Steroids w/ taper NEBS Cont. current support OK to D/ C home today from our standpoint, RX provided for steroid with taper D/W GINGER DUNCAN MD Dec 13, 2019 10:15
[2019-12-13 10:46] VITALS: BP 143/65
[2019-12-13] MEDS ORDERED: predniSONE 20 MG TABLET PO ONE (11:45)
[2019-12-13] MEDS ORDERED: IPRATRPIUM/ALBUTEROL 0.5/2.5MG 3 ML NEBU. NEB ONE (11:45)
[2019-12-13] MEDS: HYDROcodone/APAP 7.5/325MG 1 TAB TABLET PO PRN (12:25)
[2019-12-13] MEDS ORDERED: DILT180C2 PO (13:01)
[2019-12-13] MEDS ORDERED: PRED20TA PO (13:16)
--- NOTE | 2019-12-13 19:34 | DS ---
DATE OF DISCHARGE: 12/13/2019 PRIMARY DIAGNOSIS: Acute exacerbation of chronic obstructive pulmonary disease with acute hypoxic respiratory failure. ADDITIONAL DIAGNOSES: Supraventricular tachycardia versus atrial fibrillation with rapid ventricular response contributing to his symptomatology, atherosclerotic heart disease with prior stenting, hypertension, history of heart failure, and peripheral arterial disease. CHIEF COMPLAINT AND HISTORY OF PRESENT ILLNESS: This 74-year-old white female is admitted through the Emergency Room after profound hypoxia and shortness of breath at home, persisting to the Emergency Room where she was admitted with acute hypoxic respiratory failure with exacerbation of chronic obstructive pulmonary disease and tachycardia with rates up to 170s, felt to be SVT, but Cardiology felt maybe some atrial fibrillation involved or flutter involved with the same. SUMMARY OF STAY: The patient was admitted and treated with steroids. Cardiology stopped her metoprolol because of the COPD, added Cardizem drip and eventually p.o. Cardizem for the tachycardia which improved down into the 120-range. By the time of discharge, she felt much better. Pulmonary as well as Cardiology felt she was ready for discharge and the patient was thus discharged. DISPOSITION: The patient is discharged to home. DIET: Regular diet. ACTIVITY: As tolerated and office in 1 week. DISCHARGE MEDICATIONS: Listed on the medication reconciliation and have been addressed. HELEN BARAJAS MD DR: NITIN/lazaro JOB#: [id number] / [id number]
== END 2019-12-13 13:55 | disposition home or self-care (01) | DRG 189 ==
LOC: ER 10:42 → 2 SOUTH 13:07
PROVIDERS: ADMIT Family Medicine; ATTEND Family Medicine
PROC: 5A09357 Assistance with Respiratory Ventilation, Less than 24 Consecutive Hours, Continuous Positive Airway Pressure (ICD-10-PCS; principal; 2019-12-11)
DX: J96.21 Acute and chronic respiratory failure with hypoxia (principal); I47.1 Supraventricular tachycardia; J44.1 Chronic obstructive pulmonary disease with (acute) exacerbation; I50.32 Chronic diastolic (congestive) heart failure; I11.0 Hypertensive heart disease with heart failure; E78.00 Pure hypercholesterolemia, unspecified; F17.210 Nicotine dependence, cigarettes, uncomplicated; E78.5 Hyperlipidemia, unspecified; I25.10 Atherosclerotic heart disease of native coronary artery without angina pectoris; I73.9 Peripheral vascular disease, unspecified; F41.9 Anxiety disorder, unspecified; I48.91 Unspecified atrial fibrillation; G89.29 Other chronic pain; Z99.81 Dependence on supplemental oxygen; Z95.5 Presence of coronary angioplasty implant and graft; Z82.49 Family history of ischemic heart disease and other diseases of the circulatory system
CPT/HCPCS: 36415; 36600; 71045; 80048; 80053; 82805; 82962; 83735; 83880; 84443; 84484; 85007; 85025; 85610; 85730; 93005; 94640; 94660; 94760; 96365; 99285; 99406; J1815; J2920; J2930; J3475; J3490; J7030; J7512; J7620; G0378

== ENCOUNTER 2020-06-11 14:45 | Emergency (ER) | payer MEDICARE ==
[~2020-06-11] VITALS: Ht 154.9 cm; Wt 55.0 kg
[~2020-06-11 14:45] MED LIST changes: +CETI10TA16 PO; +CHLO25TA10 PO; +DIGO125T3 PO; +DILT180C2 PO; +DILT180C39 PO; +FLUT16SP NS; +FURO40TA4 PO; +METO5TAB55 PO; +MULT-445 PO; -MULT1TAB52 PO; +OXYM30SP25 NS; +PANT40TA77 PO; +POTA20TA4 PO; +SODI30SP NS; +UMEC1DIS IH
[2020-06-11] MEDS ORDERED: ONDANSETRON PF 4 MG/2 ML VIAL. IVP ONE (15:30)
[2020-06-11] MEDS ORDERED: IV NORMAL SALINE 1000ML BAG 1,000 ML IV ONE ×2 (15:30)
[2020-06-11] MEDS ORDERED: FAMOTIDINE 20 MG/2 ML VIAL IVP ONE (15:30)
[2020-06-11] MEDS ORDERED: MORPHINE SULFATE 10 MG/ML VIAL. IV ONE (15:30)
[2020-06-11 15:46] LABS: BASO # 0.2 x10^3/uL (0.0-0.2); BASO % 1 % (0-3); EOS # 0.2 x10^3/uL (0.0-0.7); EOS % 1 % (0-3); HEMATOCRIT 34.4 % (36.0-47.0); LYMPH % 15 % (24-48); MEAN CORPUSCULAR HEMOGLOBIN 23 pg (25-35); MEAN CORPUSCULAR HGB CONC 32 g/dL (31-37); MEAN CORPUSCULAR VOLUME 71 fL (79-100); MONO # 1.3 x10^3/uL (0.0-1.1); MONO % 10 % (0-9); NEUT # 9.8 x10^3/uL (1.8-7.7); NEUT % 73 % (31-73); PLATELET COUNT 766 x10^3/uL (140-400); RED BLOOD COUNT 4.87 x10^6/uL (3.50-5.40); RED CELL DISTRIBUTION WIDTH 21.1 % (11.5-14.5); WHITE BLOOD COUNT 13.5 x10^3/uL (4.0-11.0)
[2020-06-11 15:58] LABS: CALCIUM 7.9 mg/dL (8.5-10.1); CREATININE 1.2 mg/dL (0.6-1.0); POTASSIUM 3.1 mmol/L (3.5-5.1)
[2020-06-11 16:03] LABS: ALBUMIN 3.2 g/dL (3.4-5.0); ALBUMIN/GLOBULIN RATIO 0.8 (1.0-1.7); MAGNESIUM 1.4 mg/dL (1.8-2.4); TOTAL BILIRUBIN 0.4 mg/dL (0.2-1.0); TOTAL PROTEIN 7.2 g/dL (6.4-8.2)
[2020-06-11 16:12] LABS: BARBITURATES NEG (NEG); BENZODIAZEPINES NEG (NEG); CANNABINOIDS NEG (NEG); COCAINE NEG (NEG); METHADONE NEG (NEG); OPIATES POS (NEG); PHENCYCLIDINE NEG (NEG)
[2020-06-11 16:13] LABS: AMPHETAMINE/METHAMPHETAMINE NEG (NEG)
--- NOTE | 2020-06-11 16:33 | RAD ---
CT abdomen and pelvis without contrast 06/11/2020. Reason for exam: Pain. History of colitis. Helical noncontrast images were performed. Exposure: One or more of the following individualized dose reduction techniques were utilized for this examination: 1. Automated exposure control 2. Adjustment of the mA and/or kV according to patient size 3. Use of iterative reconstruction technique. FINDINGS: Minimal patchy infiltrate is seen at the right lung base in the lower lobe and possibly laterally in the left lower lobe. The liver and spleen are homogeneous in density and normal in configuration. Evaluation of the solid organs is somewhat limited by lack of IV contrast. The kidneys show no apparent mass or obstruction. The adrenal glands are not enlarged. The pancreas appears normal. No retroperitoneal or mesenteric adenopathy is seen. There is no apparent abdominal mass or inflammatory process. There is prominent calcification through the proximal celiac and SMA. Images through the pelvis show no abnormality of the distal ureters or bladder. No pelvic or inguinal adenopathy is seen. There is no apparent pelvic mass or inflammatory process. There is extensive diverticulosis of the sigmoid colon without clearcut diverticulitis. IMPRESSION: No identified acute abnormality. Electronically signed by: Nicolas Murphy Jr., MD (06/11/2020 4:30 PM) [id number]
[2020-06-11 16:39] LABS: PLT ESTIMATE INCREASED (ADEQUATE)
[2020-06-11 16:40] LABS: ANISOCYTOSIS MOD; HYPOCHROMIA MOD; MICROCYTOSIS MOD; POIKILOCYTOSIS SLIGHT
[2020-06-11 16:41] LABS: OVALOCYTES FEW
[2020-06-11] MEDS ORDERED: POTASSIUM CHLORIDE 20 MEQ TABLET.ER. PO ONE (17:00)
--- NOTE | 2020-06-11 17:29 | PHYS DOC ---
Past Medical History Past Medical History: CAD, CHF, COPD, High Cholesterol, Hypertension, Other Additional Past Medical Histor: SEASONAL ALLERGIES Past Surgical History: Other Additional Past Surgical Histo: cardiac cath with stents Smoking Status: Current Every Day Smoker Additional Information: 1/2 PACK DAILY Alcohol Use: None Drug Use: None General Adult EDM: Chief Complaint: ABDOMINAL PAIN HPI: HPI: Patient is a 75 year old female with history of diabetes type 2, hypertension, high cholesterol, COPD, current smoker, who presents to the ED today complaining of generalized cramping abdominal pain intermittently for week. Denies any nausea vomiting, reports intermittent slight loose stools nonbloody. Patient states she was seen by the PCP and was diagnosed with colitis and provided information to follow-up with a GI specialist. Review of Systems: Review of Systems: Constitutional: Denies fever or chills. [] Eyes: Denies change in visual acuity. [] HENT: Denies nasal congestion or sore throat. [] Respiratory: Denies cough or shortness of breath. [] Cardiovascular: Denies chest pain or edema. [] GI: Reports generalized abdominal pain with slight loose stools, denies any bloody stools, denies any nausea vomiting : Denies dysuria. [] Musculoskeletal: Denies back pain or joint pain. [] Integument: Denies rash. [] Neurologic: Denies headache, focal weakness or sensory changes. [] Endocrine: Denies polyuria or polydipsia. [] Lymphatic: Denies swollen glands. [] Psychiatric: Denies depression or anxiety. [] Heart Score: Risk Factors: Risk Factors: DM, Current or recent (<one month) smoker, HTN, HLP, family history of CAD, obesity. Risk Scores: Score 0 - 3: 2.5% MACE over next 6 weeks - Discharge Home Score 4 - 6: 20.3% MACE over next 6 weeks - Admit for Clinical Observation Score 7 - 10: 72.7% MACE over next 6 weeks - Early Invasive Strategies Current Medications: Current Medications Medications (Trade) Dose Ordered Sig/Home Start Time Stop Time Status Last Admin Dose Admin Famotidine (Pepcid Vial) 20 mg 1X ONCE 06/11/20 15:30 06/11/20 15:31 DC 06/11/20 15:43 20 MG Morphine Sulfate (Morphine Sulfate) 5 mg 1X ONCE 06/11/20 15:30 8/1/20 15:31 DC 06/11/20 15:45 5 MG Ondansetron HCl (Zofran) 4 mg 1X ONCE 06/11/20 15:30 06/11/20 15:31 DC 06/11/20 15:42 4 MG Potassium Chloride (Klor-Con) 40 meq 1X ONCE 06/11/20 17:00 06/11/20 17:01 DC Sodium Chloride 1,000 ml @ 1,000 mls/hr 1X ONCE 06/11/20 15:30 06/11/20 16:29 DC Allergies: Allergies: Allergies Coded Allergies Type Severity Reaction Last Updated Verified No Known Drug Allergies 02/17/16 No Physical Exam: PE: Constitutional: Well developed, well nourished, no acute distress, non-toxic appearance. [] HENT: Normocephalic, atraumatic, bilateral external ears normal, oropharynx moist, no oral exudates, nose normal. [] Eyes: PERRLA, EOMI, conjunctiva normal, no discharge. [] Neck: Normal range of motion, no tenderness, supple, no stridor. [] Cardiovascular: Tachycardic Lungs & Thorax: Bilateral breath sounds clear to auscultation [] Abdomen: Bowel sounds normal, soft, diffuse tenderness to the mid abdomen, no point tenderness to the right upper quadrant or right lower quadrant, no masses, no pulsatile masses. [] Skin: Warm, dry, no erythema, no rash. [] Back: No tenderness, no CVA tenderness. [] Extremities: No tenderness, no cyanosis, no clubbing, ROM intact, no edema. [] Neurologic: Alert and oriented X 3, normal motor function, normal sensory function, no focal deficits noted. [] Psychologic: Flat affect Current Patient Data: Labs: Laboratory Tests Test 06/11/20 15:37 White Blood Count 13.5 x10^3/uL (4.0-11.0) H Red Blood Count 4.87 x10^6/uL (3.50-5.40) Hemoglobin 11.0 g/dL (12.0-15.5) L Hematocrit 34.4 % (36.0-47.0) L Mean Corpuscular Volume 71 fL (79-100) L Mean Corpuscular Hemoglobin 23 pg (25-35) L Mean Corpuscular Hemoglobin Concent 32 g/dL (31-37) Red Cell Distribution Width 21.1 % (11.5-14.5) H Platelet Count 766 x10^3/uL (140-400) H Neutrophils (%) (Auto) 73 % (31-73) Lymphocytes (%) (Auto) 15 % (24-48) L Monocytes (%) (Auto) 10 % (0-9) H Eosinophils (%) (Auto) 1 % (0-3) Basophils (%) (Auto) 1 % (0-3) Neutrophils # (Auto) 9.8 x10^3/uL (1.8-7.7) H Lymphocytes # (Auto) 2.0 x10^3/uL (1.0-4.8) Monocytes # (Auto) 1.3 x10^3/uL (0.0-1.1) H Eosinophils # (Auto) 0.2 x10^3/uL (0.0-0.7) Basophils # (Auto) 0.2 x10^3/uL (0.0-0.2) Platelet Estimate Increased (ADEQUATE) Hypochromasia Mod Poikilocytosis Slight Anisocytosis Mod Microcytosis Mod Ovalocytes Few Prothrombin Time 14.0 SEC (11.7-14.0) Prothrombin Time INR 1.1 (0.8-1.1) Activated Partial Thromboplast Time 36 SEC (24-38) Sodium Level 131 mmol/L (136-145) L Potassium Level 3.1 mmol/L (3.5-5.1) L Chloride Level 94 mmol/L (98-107) L Carbon Dioxide Level 28 mmol/L (21-32) Anion Gap 9 (6-14) Blood Urea Nitrogen 9 mg/dL (7-20) Creatinine 1.2 mg/dL (0.6-1.0) H Estimated GFR (Cockcroft-Gault) 44.0 BUN/Creatinine Ratio 8 (6-20) Glucose Level 129 mg/dL (70-99) H Lactic Acid Level 1.3 mmol/L (0.4-2.0) Calcium Level 7.9 mg/dL (8.5-10.1) L Magnesium Level 1.4 mg/dL (1.8-2.4) L Total Bilirubin 0.4 mg/dL (0.2-1.0) Aspartate Amino Transferase (AST) 20 U/L (15-37) Alanine Aminotransferase (ALT) 15 U/L (14-59) Alkaline Phosphatase 72 U/L (46-116) Total Protein 7.2 g/dL (6.4-8.2) Albumin 3.2 g/dL (3.4-5.0) L Albumin/Globulin Ratio 0.8 (1.0-1.7) L Lipase 65 U/L (73-393) L Procalcitonin < 0.10 ng/mL (0.00-0.10) Urine Opiates Screen Pos (NEG) Urine Methadone Screen Neg (NEG) Urine Barbiturates Neg (NEG) Urine Phencyclidine Screen Neg (NEG) Urine Amphetamine/Methamphetamine Neg (NEG) Urine Benzodiazepines Screen Neg (NEG) Urine Cocaine Screen Neg (NEG) Urine Cannabinoids Screen Neg (NEG) Ethyl Alcohol Level < 10 mg/dL (0-10) Urine Ethyl Alcohol Neg (NEG) Laboratory Tests 06/11/20 15:37 Laboratory Tests 06/11/20 15:37 Vital Signs: Vital Signs Date Time Temp Pulse Resp B/P (MAP) Pulse Ox O2 Delivery O2 Flow Rate FiO2 06/11/20 15:45 20 92 Room Air 06/11/20 15:16 98.8 124 155/72 (99) 98.8 EKG: EKG: [] Radiology/Procedures: Radiology/Procedures: []PROCEDURE: CT ABDOMEN PELVIS WO CONTRAST CT abdomen and pelvis without contrast 06/11/2020. Reason for exam: Pain. History of colitis. Helical noncontrast images were performed. Exposure: One or more of the following individualized dose reduction techniques were utilized for this examination: 1. Automated exposure control 2. Adjustment of the mA and/or kV according to patient size 3. Use of iterative reconstruction technique. FINDINGS: Minimal patchy infiltrate is seen at the right lung base in the lower lobe and possibly laterally in the left lower lobe. The liver and spleen are homogeneous in density and normal in configuration. Evaluation of the solid organs is somewhat limited by lack of IV contrast. The kidneys show no apparent mass or obstruction. The adrenal glands are not enlarged. The pancreas appears normal. No retroperitoneal or mesenteric adenopathy is seen. There is no apparent abdominal mass or inflammatory process. There is prominent calcification through the proximal celiac and SMA. Images through the pelvis show no abnormality of the distal ureters or bladder. No pelvic or inguinal adenopathy is seen. There is no apparent pelvic mass or inflammatory process. There is extensive diverticulosis of the sigmoid colon without clearcut diverticulitis. IMPRESSION: No identified acute abnormality. Electronically signed by: Alonso Cisse Jr., MD (06/11/2020 4:30 PM) [id number] DICTATED and SIGNED BY: ALONSO CISSE Jr, MD DATE: 06/11/20 1630 Course & Med Decision Making: Course & Med Decision Making Pertinent Labs and Imaging studies reviewed. (See chart for details) This is a 75-year-old female patient presenting to the ED today complaining of crampy abdominal pain for a week, she is currently on Flagyl for colitis. CBC with a WBC of 13.1. CMP with potassium of 3.1, patient was given oral potassium replacement. CT of the abdomen and pelvic is negative for any acute findings. Lactic is normal. Patient was given IV fluids. Feeling better. Discharge to home. Has an appointment with GI already scheduled next week. Follow-up with PCP and the GI specialist in the course of next week Iliana Disclaimer: Iliana Disclaimer: This electronic medical record was generated, in whole or in part, using a voice recognition dictation system. Departure Departure Impression: Primary Impression: Abdominal pain Qualified Codes: R10.84 - Generalized abdominal pain Disposition: HOME, SELF-CARE Condition: STABLE Referrals: HELEN BARAJAS MD (PCP) follow up next week Patient Instructions: Abdominal Pain Additional Instructions: You were evaluated in the emergency room for abdominal pain please follow up with the GI doctor as scheduled. Please push fluids, maintain good hand hygiene. Come back to the ED at any point symptoms worsen. Scripts Promethazine Hcl (PROMETHAZINE HCL) 25 Mg Tablet 1 TAB PO PRN Q6HRS, #20 TAB Prov: ASAD HIDALGO APRN 06/11/20 Hydrocodone/Apap 5-325 (NORCO 5-325 TABLET) 1 Each Tablet 1 TAB PO Q6-8HRS PRN for PAIN, #10 TAB Prov: ASAD HIDALGO APRN 06/11/20 Justicifation of Admission Dx: Justifications for Admission: Justification of Admission Dx: N/A ASAD HIDALGO APRN Jun 11, 2020 17:29
[2020-06-11] MEDS ORDERED: PROM25TA10 PO (17:36)
[2020-06-11] MEDS ORDERED: HYDR-3164 PO (17:36)
[2020-06-11 19:08] VITALS: BP 153/68
== END 2020-06-11 19:25 | disposition home or self-care (01) ==
LOC: ER 14:45
DX: R10.84 Generalized abdominal pain (principal); R11.2 Nausea with vomiting, unspecified; R19.7 Diarrhea, unspecified; J44.9 Chronic obstructive pulmonary disease, unspecified; I11.0 Hypertensive heart disease with heart failure; I50.9 Heart failure, unspecified; E78.00 Pure hypercholesterolemia, unspecified; E11.9 Type 2 diabetes mellitus without complications; F17.200 Nicotine dependence, unspecified, uncomplicated; Z98.890 Other specified postprocedural states
CPT/HCPCS: 36415; 74176; 80053; 80307; 83605; 83690; 83735; 84145; 85025; 85610; 85730; 87040; 96361; 96374; 96375; 99284; G0480; J2270; J2405; J3490; J7030

== ENCOUNTER 2020-06-22 10:29 | Emergency (ER) | payer MEDICARE ==
[~2020-06-22 10:29] MED LIST changes: +HYDR-3164 PO; +PROM25TA10 PO
== END 2020-06-22 10:37 | disposition left against medical advice (07) ==
LOC: ER 10:29
DX: R06.02 Shortness of breath (principal); Z53.21 Procedure and treatment not carried out due to patient leaving prior to being seen by health care provider

== ENCOUNTER → 2020-07-26 | Outpatient (CLI) | payer MEDICARE ==
[2020-07-08 15:00] VITALS: BP 128/76
[~2020-07-26] MED LIST changes: -CETI10TA24 PO; +CETI10TA74 PO
--- NOTE | 2020-07-26 11:58 | RAD ---
Duplex ultrasound evaluation of mesenteric arteries 07/26/2020 INDICATION: Abdominal pain, weight loss. COMPARISON STUDY: CTA CHEST March 15, 2020 Discussion: Focused ultrasound evaluation of the mesenteric arteries was performed including color Doppler imaging spectral analysis. Visualized proximal celiac artery appears grossly patient with peaks solid velocity of 74.3 cm/s. The proximal superior mesenteric artery is somewhat poorly visualized but demonstrates an elevated velocity of 298 cm/s. The inferior mesenteric artery is nonvisualized. Visualized aorta is nonaneurysmal. IMPRESSION: Mildly elevated velocity in the proximal superior mesenteric artery on to 290 cm/s. Hemodynamically significant stenosis is possible. CT angiography recommended for further characterization. Electronically signed by: Xander Regalado MD (07/26/2020 11:55 AM) [id number]
== END | disposition home or self-care (01) ==
LOC: US 06:15
PROVIDERS: ATTEND Family Medicine
DX: R10.9 Unspecified abdominal pain (principal); R63.4 Abnormal weight loss
CPT/HCPCS: 93975

== ENCOUNTER → 2020-07-27 | Outpatient (CLI) | payer MEDICARE ==
[2020-07-08 15:00] VITALS: BP 128/76
[~2020-07-27] MED LIST changes: +BARIUM SULFATE 60% 355 ML SUSP PO ONE
--- NOTE | 2020-07-27 17:35 | RAD ---
EXAM: SMALL BOWEL FOLLOW-THROUGH. HISTORY: 75-year-old woman with left lower quadrant abdominal pain.. COMPARISON: None. FINDINGS: A long goods drier image was obtained. Barium contrast material was administered orally and followed in its course through the stomach, small bowel and proximal colon with fluoroscopy and plain radiographs. 2 fluoroscopic images were obtained. Fluoroscopy time 30 seconds. The long goods drier image demonstrates a nonobstructive bowel gas pattern. There are no distended small bowel loops. No strictures are seen. The small bowel fold pattern is unremarkable. Transit time was normal at 90 minutes (normal <2 hours.) IMPRESSION: 1. Unremarkable small bowel series. Electronically signed by: Yuly Swanson MD (07/27/2020 5:32 PM) [id number]
== END | disposition home or self-care (01) ==
LOC: RAD 08:00
PROVIDERS: ATTEND Internal Medicine Gastroenterology
DX: R10.32 Left lower quadrant pain (principal)
CPT/HCPCS: 74250

== ENCOUNTER → 2020-08-10 | Outpatient (CLI) | payer MEDICARE ==
[2020-07-08 15:00] VITALS: BP 128/76
[~2020-08-10] MED LIST changes: -BARIUM SULFATE 60% 355 ML SUSP PO ONE; +CONTRAST GIVEN. MC PRN; +IOHEXOL 300 MG/ML 100ML VIAL. IV ONE
--- NOTE | 2020-08-10 17:01 | KCIC ---
Examination: CT ANGIOGRAPHY ABDOMEN History: Abdominal pain, evaluate for mesenteric arteries / Spl. Instructions: 100 mL Omni 300 / History: Chronic abdominal pain, loss of appetite. Comparison/Correlation: None Findings: Axial images of the abdomen were obtained following IV contrast can't arteriography protocol. Sagittal and coronal reformatted images provided. Maximum intensity projection and volume rendered 3-D images provided. The visualized lung bases are clear. Liver, spleen, pancreas, and adrenal glands are normal. Left renal superior pole cystic structure with Hounsfield units of 25 is present. This finding measures up to 1.1 cm diameter. Moderate right renal atrophy is present. Significant calcific involvement of the visualized aorta is evident. Stenosis of the celiac artery origin of at least 60 percent is seen. Significant calcific involvement throughout the celiac artery is. Extensive calcific plaque involves the proximal superior mesenteric artery. Diffuse stenosis of the proximal superior mesenteric artery of about 60 percent is seen. Calcific involvement more distally involving the superior mesenteric artery is present. Significant calcific involvement of the inferior mesenteric artery origin is present with stenosis of at least 50 percent. There are 2 right renal arteries. The upper right renal artery has stenosis at the origin of slightly greater than 50 percent. Less than 1 cm from the origin, there is kinking of the right upper renal artery with plaque and stenosis of approximately 70 percent. Right lower renal artery has high-grade stenosis of over 90 percent. Obesity percent stenosis of the proximal left main renal artery is present. The distal abdominal aorta is tortuous. Common iliac arteries are tortuous. Significant calcific involvement of the common iliac arteries is evident. There is focal high-grade stenosis of at least 80 percent involving the proximal to mid left common iliac artery. No enlarged abdominal lymph nodes. Retained contrast within diverticuli of the colon identified. T12 vertebral body compression deformity is present similar compared to previous exam. Multilevel disc space narrowing of the visualized spine noted. Impression: Significant calcific involvement of the visualized arterial structures. Stenoses of greater than 50 percent identified involving celiac and superior mesenteric arteries. Significant calcification involvement of the mesenteric arteries noted. High-grade stenoses involving renal arteries and the left common iliac artery. Left renal superior pole cystic structure with density greater than expected for a simple cyst. This finding is not delineated on 06/11/2020 CT of the abdomen without contrast exam. It is increased by 0.3 cm compared to 09/08/2018 CTA of the chest. Interval follow-up CT of the kidneys without and with contrast in 1 year to assess stability recommended. Electronically signed by: Christopher Floyd MD (08/10/2020 4:59 PM) [id number]
== END ==
LOC: KCIC CT 14:09
PROVIDERS: ATTEND Family Medicine
DX: N26.1 Atrophy of kidney (terminal) (principal); K55.1 Chronic vascular disorders of intestine; I70.1 Atherosclerosis of renal artery; I77.4 Celiac artery compression syndrome
CPT/HCPCS: 74175; Q9967

== ENCOUNTER 2020-08-23 06:55 | Outpatient (CLI) | payer MEDICARE ==
[2020-08-23] VITALS (21 sets, daily range): BP systolic 122–164; BP diastolic 66–91
[~2020-08-23] VITALS: Ht 152.4 cm; Wt 53.1 kg
[~2020-08-23 06:55] MED LIST changes: -CONTRAST GIVEN. MC PRN; -DILT180C39 PO; -IOHEXOL 300 MG/ML 100ML VIAL. IV ONE; +[UNRECOGNIZED DRUG - CODE] PO
[2020-08-23 08:00] LABS: BASO # 0.1 x10^3/uL (0.0-0.2); BASO % 0 % (0-3); EOS # 0.1 x10^3/uL (0.0-0.7); EOS % 1 % (0-3); HEMATOCRIT 40.1 % (36.0-47.0); HEMOGLOBIN 12.3 g/dL (12.0-15.5); LYMPH # 1.9 x10^3/uL (1.0-4.8); LYMPH % 12 % (24-48); MEAN CORPUSCULAR HEMOGLOBIN 24 pg (25-35); MEAN CORPUSCULAR HGB CONC 31 g/dL (31-37); MEAN CORPUSCULAR VOLUME 77 fL (79-100); MONO # 0.8 x10^3/uL (0.0-1.1); MONO % 5 % (0-9); NEUT # 12.6 x10^3/uL (1.8-7.7); NEUT % 81 % (31-73); PLATELET COUNT 403 x10^3/uL (140-400); RED BLOOD COUNT 5.18 x10^6/uL (3.50-5.40); WHITE BLOOD COUNT 15.5 x10^3/uL (4.0-11.0)
[2020-08-23] MEDS ORDERED: LACT1CAP6 PO (08:00)
[2020-08-23] MEDS ORDERED: IBUP200C9 PO (08:00)
[2020-08-23] MEDS ORDERED: CART1TAB5 PO (08:00)
[2020-08-23 08:08] LABS: CALCIUM 9.9 mg/dL (8.5-10.1); GFR 54.3; POTASSIUM 3.4 mmol/L (3.5-5.1)
[2020-08-23 08:10] LABS: PROTHROMBIN TIME PATIENT 12.6 SEC (11.7-14.0)
[2020-08-23] MEDS ORDERED: LIDOCAINE WITH 8.4% SOD BICARB 3 ML DISP.SYRIN. ONE (08:37)
[2020-08-23] MEDS ORDERED: HEPARIN for ARTERIAL LINE 1,500 ML ONE (08:37)
[2020-08-23] MEDS ORDERED: IODIXANOL 320 MG/ML 100 ML VIAL. ONE (08:40)
[2020-08-23] MEDS ORDERED: IODIXANOL 320 MG/ML 50ML VIAL. ONE (09:08)
[2020-08-23] MEDS ORDERED: HEPARIN for IV BOLUS 10,000 UNIT/10 ML VIAL. ONE (09:23)
[2020-08-23] MEDS ORDERED: MIDAZOLAM HCL/PF 2 MG/2 ML VIAL. ONE (09:23)
[2020-08-23] MEDS ORDERED: fentaNYL PF VIAL 100 MCG/2 ML VIAL ONE (09:23)
[2020-08-23] MEDS ORDERED: LIDOCAINE WITH 8.4% SOD BICARB 3 ML DISP.SYRIN. IJ ONE (09:45)
[2020-08-23] MEDS ORDERED: fentaNYL PF VIAL 100 MCG/2 ML VIAL IV ONE (09:45)
[2020-08-23] MEDS ORDERED: IODIXANOL 320 MG/ML 100 ML VIAL. IART ONE (09:45)
[2020-08-23] MEDS ORDERED: HEPARIN for IV BOLUS 10,000 UNIT/10 ML VIAL. IV ONE (09:45)
[2020-08-23] MEDS ORDERED: MIDAZOLAM HCL/PF 2 MG/2 ML VIAL. IV ONE (09:45)
[2020-08-23 10:15] LABS: % EOS 1 % (0-5); % LYMPHS 11 % (24-48); % MONOS 7 % (0-10); % SEGS 81 % (35-66); PLT ESTIMATE ADEQUATE (ADEQUATE)
[2020-08-23 10:16] LABS: ANISOCYTOSIS SLIGHT; TEAR DROP CELLS OCC
--- NOTE | 2020-08-23 13:25 | NUR ---
Pt. c/o back pain. Bed tilted, pt remains flat. Pt took 1 tab of her home hydrocodone pills. Will continue to monitor.
--- NOTE | 2020-08-23 14:10 | NUR ---
Pt sleeping, VSS, no s/s of pain. Will continue to monitor.
[2020-08-23] MEDS ORDERED: CLOPIDOGREL BISULFATE 75 MG TABLET ONE (14:44)
[2020-08-23] MEDS ORDERED: CLOPIDOGREL BISULFATE 75 MG TABLET PO ONE (14:45)
[2020-08-23] MEDS ORDERED: CLOP75TA PO (15:15)
--- NOTE | 2020-08-23 15:56 | NUR ---
Discharge Note: DARRION MAYER Discharge instructions and discharge home medications reviewed with Patient and a copy given. All questions have been answered and understanding verbalized. The following instructions and handouts were given: arteriogram aftercare and adult moderate sedation Discontinued lines and drains: Peripheral IV intact. Patient discharged to Home or Self Care withSpousevia Wheelchair
--- NOTE | 2020-08-23 16:05 | RAD ---
08/23/2020 1:58 PM Procedure: 1. Mesenteric angiography 2. Stent placement, proximal SMA secondary to ostial stenosis Clinical Indication: Chronic mesenteric ischemia Discussion: The procedure was explained in its entirety to the patient or the patients designated media sales representative by a member of the treatment team, including a discussion of the risks, benefits and commonly accepted alternatives to the procedure, as well as the expected consequences of no therapy whatsoever. Discussion of the risks included, but was not limited to, those that are most frequent and those that are rare but possibly severe or life-threatening, as well as the possibility of unforeseen complications. All elements of maximal sterile barrier technique including the use of a cap, mask, sterile gown, sterile gloves, large sterile sheet, appropriate hand hygiene, and 2% chlorhexidine for cutaneous antisepsis (or acceptable alternative antiseptic per current guidelines) were followed for this procedure. The right groin was prepped and draped as described. Ultrasound evaluation demonstrates calcified patent right common femoral artery. The artery was accessed under direct ultrasound guidance using micropuncture technique. Reference ultrasound images were saved the medical record. A 5 Cam[place]onian vascular sheath was placed. Diagnostic catheter was advanced to the ostium of the SMA. Angiograms were performed redemonstrating approximately 75% narrowing of the proximal SMA. The lesion was crossed with a wire. A sheath was advanced to the ostium of the SMA. 6 mm balloon-expandable stent was placed. Repeat angiogram demonstrates improved morphology and flow through the previous stenotic lesion. Total fluoroscopy time: 9.9 min Dose area product: 245 Gycm2 The procedures performed under conscious sedation including continuous cardiopulmonary monitoring via dedicated sedation nurse. [id number] sedation time: 62 minutes Impression: 75% stenosis proximal SMA treated with balloon expandable stent placement
== END 2020-08-23 15:58 | disposition home or self-care (01) ==
LOC: INTRAD 06:55
PROVIDERS: ATTEND Family Medicine
DX: K55.059 Acute (reversible) ischemia of intestine, part and extent unspecified (principal); G12.8 Other spinal muscular atrophies and related syndromes; I70.1 Atherosclerosis of renal artery; J44.9 Chronic obstructive pulmonary disease, unspecified; E78.5 Hyperlipidemia, unspecified; F41.9 Anxiety disorder, unspecified; I11.0 Hypertensive heart disease with heart failure; I50.9 Heart failure, unspecified; F17.210 Nicotine dependence, cigarettes, uncomplicated; Z98.890 Other specified postprocedural states; Z79.899 Other long term (current) drug therapy
CPT/HCPCS: 36415; 37236; 75726; 76937; 80048; 85007; 85025; 85347; 85610; 99152; 99153; A4215; C1713; C1769; C1892; C1894; J1644; J2250; J3010; J3490; Q9967

== ENCOUNTER → 2020-09-06 | Outpatient (CLI) | payer MEDICARE ==
[2020-08-23 15:45] VITALS: BP 161/86
[~2020-09-06] MED LIST changes: +CART1TAB5 PO; +IBUP200C9 PO
--- NOTE | 2020-09-06 11:54 | PDOC ---
Progress Note - Pain Clinic Date of Service: DOS: DATE: 09/06/20 TIME: 11:50 Diagnosis: Dx: Lumbar radiculopathy with lumbar degenerative disease and lumbar spinal stenosis History or Present Illness: HPI: 75-year-old female returns follow-up status post lumbar epidural steroid injection x1 last seen November 25, 2019. Patient reports she did well after the injection but the pain returned fairly quickly however she was hospitalized for COPD 7 times remainder of the year and most recently has had a mesenteric artery stent placed about 2 weeks ago. Patient was placed on Plavix she reports by her interventional radiologist and she is taken herself off of it now for the past 4 days. Patient ports the pain her abdomen was overshadowing the pain in her back but now the pain in the back is significant again more on the left side than the right across the low back and into the bilateral posterior gluteus posterior thighs right equal to left essentially. Patient reports is an 8 on scale 10 is worst over the past week 8 on average 8 its least is an 8 today patient reports is aching and sharp are off in intensity stabbing worse with walking standing changing positions wakes her from sleep occasionally but not every night patient reports also some perceived weakness in the lower extremities with ambulation but no overt motor loss. Patient reports no bowel or bladder incontinence at this time. Physical Exam: VS: Blood pressure is 117/72 pulse 114 respirations 16 temperature 97.9 F weight is 122 pounds PE: PHYSICAL EXAMINATION: GENERAL: The patient is awake, alert, oriented, appropriate, very pleasant de meanor HEENT: Shows normocephalic, atraumatic. Extraocular movements are intact and symmetrical. Oral cavity: Mucous membranes moist and pink. NECK: Shows anterior throat supple without palpable lymphadenopathy noted. Swallow reflex symmetrical. CHEST: Shows normal on inspection. Breath sounds are clear bilaterally, coarse and distant but without rales rhonchi or wheezes auscultated. HEART: Shows S1, S2 clear. No murmurs auscultated. ABDOMEN: Soft, nontender, nondistended, obese. No palpable organomegaly is noted. No rebound or guarding demonstrated. BACK: Shows spine grossly in the midline. Normal-appearing cervical lordotic curvature. There is increased thoracic kyphosis, some minor flattening of the lumbar lordotic curvature. Lumbar paraspinous muscles show symmetrical on inspection, on palpation shows some moderate tenderness diffusely throughout the upper, middle and lower distribution of the paraspinous muscles bilaterally and also into the lower thoracic paraspinous musculature, firm and tender, but without specific trigger points, without radiation of pain. The patient has good rotational motion of the lumbar spine, both laterally as well as extension and flexion without significant difficulty. No tenderness over the spinous processes, sacrum or sacroiliac regions. EXTREMITIES: Lower extremities show deep tendon reflexes 1+ in the patellar and tendo calcaneus tendons. Motor exam is 4 on a scale of 5 with right dorsiflexion, extension, quadriceps and hamstring flexion and 4/5 on the left. Peripheral pulses are 1+ posterior tibial. No peripheral edema is noted bilaterally. Lower extremities are warm and dry to touch, equal in color and appearance. SKIN: Shows warm and dry, good turgor. No edema. No sores, rashes or bruising throughout. Procedure: Procedure: Options were discussed with the patient. Patient will chart reviews her current medication regimen updated current review of systems updated today as well. We will check with patient's primary physician regarding Plavix and clearance to hold this for 7 days prior to potential lumbar epidural steroid injection. Patient was encouraged to go back on the medication until this can be determined and she reports understanding. Meantime we will try Medrol Dosepak to see if this may decrease some of the pain she is having although she was cautioned about additional steroids and their side effects. Patient understands and agrees and will follow-up as scheduled Medication Injected: Med Injected: None Condition at Discharge: Condition at Discharge: Condition at discharge is stable GREGORIO CUMMINS MD Sep 06, 2020 11:54
== END ==
LOC: PNCL 10:59
PROVIDERS: ATTEND Anesthesiology
DX: M51.16 Intervertebral disc disorders with radiculopathy, lumbar region (principal); M48.061 Spinal stenosis, lumbar region without neurogenic claudication; J44.9 Chronic obstructive pulmonary disease, unspecified; I11.0 Hypertensive heart disease with heart failure; I50.9 Heart failure, unspecified; E78.5 Hyperlipidemia, unspecified; F17.210 Nicotine dependence, cigarettes, uncomplicated; Z79.82 Long term (current) use of aspirin; Z79.899 Other long term (current) drug therapy
CPT/HCPCS: G0463

== ENCOUNTER → 2020-09-09 | Outpatient (CLI) | payer MEDICARE ==
[2020-08-23 15:45] VITALS: BP 161/86
[~2020-09-09] MED LIST changes: +IOHEXOL 180 MG/ML 10 ML VIAL. ONE; +methylPREDNISolone ACETATE 40 MG/ML VIAL. ONE; +methylPREDNISolone ACETATE 80 MG/ML VIAL. ONE
--- NOTE | 2020-09-09 08:40 | PDOC ---
Progress Note - Pain Clinic Date of Service: DOS: DATE: 09/09/20 TIME: 08:36 Diagnosis: Dx: Lumbar radiculopathy with lumbar degenerative disc disease and lumbar spinal stenosis History or Present Illness: HPI: 75-year-old female returns for follow-up status post lumbar epidural steroid injections most recently in November 2019. Patient reports he did very well with about a 75% improvement but the pain returned now she recently had a mesenteric artery stent placed and was on Plavix but has gotten clearance for staying off of this now for 7 days from her primary care physician and has been off of this now for 1 week total. We seen her several days ago and she had only been off of it for approximately 4 days and she got clearance with her primary physician to stay off of it for the next 3 days and returns today for lumbar epidural steroid injection. Patient reports pain low back left lower extremity as it was previously posterior gluteus posterior lateral thigh lateral anterior thigh anteromedial thigh and across the low back more on the left side than the right. Patient reports a 7 on scale 10 at all times average worst and least over the past week and is a 7 today describes it as aching and sharp stabbing in the low back and the left leg with some moderate fatigability of the left leg compared to the right with daily activities walking standing better with sitting or laying down generally not awaken her from sleep over the past few days. Patient reports no new motor or sensory deficits no new bowel or bladder con's or other complaints. Physical Exam: VS: Blood pressure 147/86 pulse 116 respirations 20 temperature is 97.7 F weight is 123 pounds PE: PHYSICAL EXAMINATION: GENERAL: The patient is awake, alert, oriented, appropriate, very pleasant demeanor HEENT: Shows normocephalic, atraumatic. Extraocular movements are intact and symmetrical. NECK: Shows anterior throat supple without palpable lymphadenopathy noted. Swallow reflex symmetrical. CHEST: Shows normal on inspection. Breath sounds are clear bilaterally coarse but without rales rhonchi and wheezes. HEART: Shows S1, S2 clear. No murmurs auscultated. ABDOMEN: Soft, nontender, nondistended, obese. No palpable organomegaly is noted. No rebound or guarding demonstrated. BACK: Shows spine grossly in the midline. Normal-appearing cervical lordotic curvature. There is slightly increased thoracic kyphosis, some minor flattening of the lumbar lordotic curvature. Lumbar paraspinous muscles show symmetrical on inspection, on palpation shows some moderate tenderness diffusely throughout the upper, middle and lower distribution of the paraspinous muscles without specific trigger points, without radiation of pain. The patient has good rotational motion of the lumbar spine, both laterally as well as extension and flexion without significant difficulty. EXTREMITIES: Lower extremities show deep tendon reflexes 1+ in the patellar and tendo calcaneus tendons. Motor exam is 4 on a scale of 5 with right dorsiflexion, extension, quadriceps and hamstring flexion and 4/5 on the left. Peripheral pulses are 1+ posterior tibial. No peripheral edema is noted bilaterally. Lower extremities are warm and dry to touch, equal in color and appearance. SKIN: Shows warm and dry, good turgor. No edema. No sores, rashes or bruising throughout. Procedure: Procedure: Options were discussed with the patient. Patient chart was reviewed as her current medication regimen updated current review of systems updated today as well. We will proceed with a lumbar epidural steroid injection today with fluoroscopic guidance as the first in the series. Risks were discussed including but not limited to: Bleeding, infection, possibility of epidural hematoma and subsequent neurological compromise, dural puncture, headaches, spinal cord and/or nerve damage, side effects of steroid medication, and poor results regarding pain control. Patient understands wished to proceed. Patient will return to the clinic in approximate 2 weeks for follow-up we will start Plavix again tonight was counseled as to return appointment activity level and side effects to be aware of. Medication Injected: Med Injected: Procedure is lumbar epidural steroid injection under local anesthetic using sterile prep and drape at the L4-5 level using C-arm fluoroscopic guidance in both AP and lateral views medications injected is 120 mg Depo-Medrol + 10 mL preservative-free normal saline and 2 mL contrast- condition at discharge is stable patient tolerated procedure well had no complications. Condition at Discharge: Condition at Discharge: Condition at discharge is stable patient tolerated seizure well and had no complications. GREGORIO CUMMINS MD Sep 09, 2020 08:40
== END ==
LOC: PNCL 08:03
PROVIDERS: ATTEND Anesthesiology
DX: M51.16 Intervertebral disc disorders with radiculopathy, lumbar region (principal); M48.061 Spinal stenosis, lumbar region without neurogenic claudication; J44.9 Chronic obstructive pulmonary disease, unspecified; I11.0 Hypertensive heart disease with heart failure; I50.9 Heart failure, unspecified; F17.210 Nicotine dependence, cigarettes, uncomplicated; Z79.82 Long term (current) use of aspirin; Z79.899 Other long term (current) drug therapy
CPT/HCPCS: 62323; J1030; J1040; Q9965

== ENCOUNTER 2020-11-30 14:28 | Inpatient (IN) | payer MEDICARE ==
[~2020-11-30] VITALS: Ht 152.4 cm; Wt 51.3 kg
[~2020-11-30 14:28] MED LIST changes: -IOHEXOL 180 MG/ML 10 ML VIAL. ONE; -ISOS60TA2 PO; +ISOS60TA55 PO; +SENN8.8S13 PO; -SENN8.8S5 PO; -methylPREDNISolone ACETATE 40 MG/ML VIAL. ONE; -methylPREDNISolone ACETATE 80 MG/ML VIAL. ONE
[2020-11-30 15:00] VITALS: BP 141/77
[2020-11-30] MEDS ORDERED: ROFL500T7 PO (15:28)
[2020-11-30] MEDS ORDERED: guaiFENesin DM 600/30MG 1 TAB TAB.ER.12H PO SCH (15:30)
[2020-11-30] MEDS ORDERED: BOR PO PRN (15:30)
[2020-11-30] MEDS ORDERED: HYALUR PO PRN (15:30)
[2020-11-30] MEDS ORDERED: ONDANSETRON ODT 4 MG TAB.RAPDIS. PO PRN (15:30)
[2020-11-30] MEDS ORDERED: CARTILAGE PO PRN (15:30)
[2020-11-30] MEDS ORDERED: COLLAGEN PO PRN (15:30)
[2020-11-30] MEDS: IPRATRPIUM/ALBUTEROL 0.5/2.5MG 3 ML NEBU. NEB SCH ×2 (16:00→20:23)
[2020-11-30] MEDS ORDERED: IBUPROFEN 200 MG TABLET. PO PRN (16:00)
[2020-11-30] MEDS ORDERED: ZOLPIDEM 5 MG TABLET. PO PRN (16:00)
[2020-11-30 16:33] LABS: BASO # 0.1 x10^3/uL (0.0-0.2); BASO % 0 % (0-3); EOS % 0 % (0-3); HEMATOCRIT 37.5 % (36.0-47.0); LYMPH # 1.6 x10^3/uL (1.0-4.8); LYMPH % 6 % (24-48); MEAN CORPUSCULAR HEMOGLOBIN 27 pg (25-35); MEAN CORPUSCULAR HGB CONC 32 g/dL (31-37); MEAN CORPUSCULAR VOLUME 83 fL (79-100); MONO # 1.6 x10^3/uL (0.0-1.1); MONO % 6 % (0-9); NEUT # 24.6 x10^3/uL (1.8-7.7); NEUT % 88 % (31-73); PLATELET COUNT 376 x10^3/uL (140-400); RED BLOOD COUNT 4.53 x10^6/uL (3.50-5.40); RED CELL DISTRIBUTION WIDTH 20.8 % (11.5-14.5)
[2020-11-30] MEDS ORDERED: NON FORMULARY ITEM (Ipratropium/Albuterol Sulfate (Combivent Respimat Inhal) 1 INH) IH SCH (17:00)
[2020-11-30 17:22] LABS: % BANDS 3 % (0-9); % LYMPHS 8 % (24-48); % METAS 1 % (0-0); % MONOS 2 % (0-10); % SEGS 86 % (35-66); PLT ESTIMATE ADEQUATE (ADEQUATE)
[2020-11-30 17:23] LABS: ANISOCYTOSIS MOD; SPHEROCYTES FEW
[2020-11-30 17:24] LABS: MICROCYTOSIS PRESENT
[2020-11-30 17:25] LABS: OVALOCYTES OCC; POIKILOCYTOSIS SLIGHT; POLYCHROMASIA PRESENT
[2020-11-30 17:26] LABS: STOMATOCYTES FEW
[2020-11-30 17:27] LABS: ALBUMIN 2.6 g/dL (3.4-5.0); ALBUMIN/GLOBULIN RATIO 0.7 (1.0-1.7); CREATININE 0.9 mg/dL (0.6-1.0); GFR 61.4; POTASSIUM 3.5 mmol/L (3.5-5.1); TOTAL BILIRUBIN 0.5 mg/dL (0.2-1.0); TOTAL PROTEIN 6.4 g/dL (6.4-8.2)
[2020-11-30] MEDS: IV NORMAL SALINE 1000ML BAG 1,000 ML IV SCH (18:19)
[2020-11-30 19:00] VITALS: BP 121/57
[2020-11-30] MEDS: BUDESONIDE 0.5 MG/2 ML NEBU. NEB SCH (20:23)
[2020-11-30] MEDS: HYDROcodone/APAP 5/325MG 1 TAB TABLET PO PRN (20:56)
[2020-11-30] MEDS ORDERED: NON FORMULARY ITEM (Budesonide/Formoterol Fumarate (Symbicort 160-4.5 Mcg Inhaler) 1 PUFF) IH SCH (21:00)
[2020-11-30 23:00] VITALS: BP 107/65
[2020-12-01 03:00] VITALS: BP 130/71
[2020-12-01] MEDS: IV NORMAL SALINE 1000ML BAG 1,000 ML IV SCH ×2 (04:05→17:25)
[2020-12-01 07:00] VITALS: BP 156/74
[2020-12-01 07:19] LABS: BILIRUBIN,URINE SMALL (NEG); CLARITY,URINE CLEAR; COLOR,URINE AMBER; NITRITE,URINE NEGATIVE (NEG); PROTEIN,URINE NEGATIVE (NEG-TRACE)
[2020-12-01] MEDS: IPRATRPIUM/ALBUTEROL 0.5/2.5MG 3 ML NEBU. NEB SCH ×4 (07:20→20:34)
[2020-12-01] MEDS: BUDESONIDE 0.5 MG/2 ML NEBU. NEB SCH ×2 (07:20→20:34)
[2020-12-01] MEDS: cefTRIAXone IV Push 1 GM VIAL. IVP SCH (08:30)
[2020-12-01] MEDS: FLUTICASONE 50MCG/NASAL SPRAY 16GM BOTTLE. NS SCH (08:30)
[2020-12-01] MEDS: SIMVASTATIN 20 MG TABLET PO SCH (08:31)
[2020-12-01] MEDS: PANTOPRAZOLE 40 MG TABLET.DR. PO SCH (08:31)
[2020-12-01] MEDS: POTASSIUM CHLORIDE 20 MEQ TABLET.ER. PO SCH (08:31)
[2020-12-01] MEDS: LACTOBACILLUS RHAMNOSUS GG 1 CAPSULE. PO SCH (08:31)
[2020-12-01] MEDS: CETIRIZINE HCL 10 MG TABLET. PO SCH (08:31)
[2020-12-01] MEDS: ROFLUMILAST 500 MCG TABLET. PO SCH (08:31)
[2020-12-01] MEDS: OMEGA-3 FATTY ACIDS/FISH OIL 1,000 MG CAPSULE. PO SCH (08:31)
[2020-12-01] MEDS: ASPIRIN ENTERIC COATED 81 MG TABLET.DR. PO SCH (08:31)
[2020-12-01] MEDS: FUROSEMIDE 40 MG TABLET. PO SCH (08:31)
[2020-12-01] MEDS: predniSONE 20 MG TABLET PO SCH (08:32)
[2020-12-01] MEDS: HYDROcodone/APAP 5/325MG 1 TAB TABLET PO PRN (08:32)
[2020-12-01] MEDS: DIGOXIN 125 MCG TABLET. PO SCH (08:32)
[2020-12-01 08:46] LABS: BACTERIA,URINE FEW /HPF (0-FEW); WBC,URINE 20-40 /HPF (0-4)
--- NOTE | 2020-12-01 09:37 | NUR ---
SW following. Discussed with RN, pt from home with , 3L oxygen (uses at home). PT/OT ordered. SW will continue to follow.
[2020-12-01 11:00] VITALS: BP 132/75
[2020-12-01 15:00] VITALS: BP 124/65
--- NOTE | 2020-12-01 15:26 | RAD ---
XR CHEST 1V INDICATION: SOA . COMPARISON STUDY: 03/14/2020. FINDINGS: Lungs: Normal lung volume. Bilateral perihilar and basilar heterogeneous opacities. Indistinct pulmon ledy vasculature Pleura: No pleural effusion or pneumothorax. Heart and Mediastinum: The cardiomediastinal silhouette is normal. Atherosclerosis of the thoracic ao rta. IMPRESSION: Bilateral perihilar and basilar opacities, likely pulmonary edema or multifocal infection. Electronically signed by: Vladimir Aguilar MD (12/01/2020 3:24 PM) [id number]
[2020-12-01 19:00] VITALS: BP 123/50
[2020-12-01 23:00] VITALS: BP 106/51
[2020-12-02 03:05] VITALS: BP 136/77
[2020-12-02] MEDS: HYDROcodone/APAP 5/325MG 1 TAB TABLET PO PRN (03:24)
[2020-12-02] MEDS: IV NORMAL SALINE 1000ML BAG 1,000 ML IV SCH ×2 (06:45→13:55)
[2020-12-02 07:00] VITALS: BP 139/70
[2020-12-02] MEDS: IPRATRPIUM/ALBUTEROL 0.5/2.5MG 3 ML NEBU. NEB SCH ×4 (07:26→20:34)
[2020-12-02] MEDS: BUDESONIDE 0.5 MG/2 ML NEBU. NEB SCH ×2 (07:26→20:35)
[2020-12-02] MEDS: OMEGA-3 FATTY ACIDS/FISH OIL 1,000 MG CAPSULE. PO SCH (08:24)
[2020-12-02] MEDS: ROFLUMILAST 500 MCG TABLET. PO SCH (08:25)
[2020-12-02] MEDS: DIGOXIN 125 MCG TABLET. PO SCH (08:25)
[2020-12-02] MEDS: predniSONE 20 MG TABLET PO SCH (08:27)
[2020-12-02] MEDS: FUROSEMIDE 40 MG TABLET. PO SCH (08:27)
[2020-12-02] MEDS: POTASSIUM CHLORIDE 20 MEQ TABLET.ER. PO SCH (08:28)
[2020-12-02] MEDS: CETIRIZINE HCL 10 MG TABLET. PO SCH (08:28)
[2020-12-02] MEDS: ASPIRIN ENTERIC COATED 81 MG TABLET.DR. PO SCH (08:28)
[2020-12-02] MEDS: SIMVASTATIN 20 MG TABLET PO SCH (08:28)
[2020-12-02] MEDS: LACTOBACILLUS RHAMNOSUS GG 1 CAPSULE. PO SCH (08:29)
[2020-12-02] MEDS: PANTOPRAZOLE 40 MG TABLET.DR. PO SCH (08:29)
[2020-12-02] MEDS: cefTRIAXone IV Push 1 GM VIAL. IVP SCH (08:29)
[2020-12-02] MEDS: FLUTICASONE 50MCG/NASAL SPRAY 16GM BOTTLE. NS SCH (08:30)
--- NOTE | 2020-12-02 08:32 | PN ---
DATE: 12/02/2020 DAILY PROGRESS NOTE LOCATION: She is in room 432. SUBJECTIVE: This 75-year-old white female remains hospitalized with weakness, anorexia, leukocytosis and probable urinary tract infection. She has underlying severe COPD and a history of multiple cardiac issues. She does state that she feels significantly better today, which is likely related to the antibiotics, although I am not sure what organism we are treating at this point in time. OBJECTIVE: VITAL SIGNS: Stable. She is afebrile. GENERAL: She is awake and alert. CHEST: Reveals distant breath sounds, but they are clear today. HEART: Remains slightly tachycardic. ABDOMEN: Benign. EXTREMITIES: Without cyanosis, clubbing, edema. LABORATORY DATA: No culture results are back yet on the urine. IMPRESSION: 1. Weakness, anorexia and falls in the setting of leukocytosis, probable urinary tract infection. 2. Chronic obstructive pulmonary disease. 3. Atherosclerotic heart disease. PLAN: Continue present therapy. Rehab therapy has been evaluated and is suggesting probable assisted at the time of discharge. We will await cultures and continue present antibiotic therapy. HELEN BARAJAS MD DR: NITIN/lazaro JOB#: [id number] / [id number]
--- NOTE | 2020-12-02 09:46 | HP ---
ADMIT DATE: 12/01/2020 CHIEF COMPLAINT AND HISTORY OF PRESENT ILLNESS: This 75-year-old white female was admitted from home on the day of admission because of progressively decreasing mobility, weakness, anorexia, couple of falls. She was felt to be unsafe at home and admitted for further evaluation of what was causing this change. 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 PAST MEDICAL HISTORY: Well documented on old charts, does include COPD, baseline tachycardia, hyperlipidemia, history of congestive heart failure and coronary artery disease. She has chronic low back pain with lumbar radiculopathy, which is improved with epidural steroids, but unable to get any for a period of time again. MEDICATIONS: Brought with the patient, listed on the computer and have been addressed. ALLERGIES: She has no known drug allergies. SOCIAL HISTORY: She continues to smoke on a daily basis despite her COPD and multiple issues. She does drink an occasional beer. Does not use drugs. , lives at home with her . FAMILY HISTORY: Noncontributory. REVIEW OF SYSTEMS: As mentioned above. PHYSICAL EXAMINATION: GENERAL: She is well-developed, well-nourished white female, appears ill. VITAL SIGNS: Remarkable primarily just for resting tachycardia in the 120 range. HEAD, EYES, EARS, NOSE AND THROAT: Shows O2 per nasal cannula, which is chronic. NECK: Supple without adenopathy or thyromegaly. CHEST: Reveals diffuse bilateral wheezes, inspiratory and expiratory. HEART: Sinus tachycardia without S3, S4 or murmur. ABDOMEN: Soft, nontender, without hepatosplenomegaly or masses. There is no CVA tenderness present. EXTREMITIES: Without cyanosis, clubbing, edema. NEUROLOGIC: She is intact. LABORATORY AND DIAGNOSTIC DATA: Initial laboratory show evidence of a probable urinary tract infection. Blood sugar is 125. Renal function is within normal limits. White count is 28,000 with a marked left shift. Chest x-ray shows bilateral perihilar and basilar opacities, likely pulmonary edema or multifocal infection, which is likely related to her recent COVID from which she has recovered. IMPRESSION: 1. Profound weakness with falls and anorexia in the setting of a marked leukocytosis and a probable urinary tract infection. 2. Chronic obstructive pulmonary disease. 3. Atherosclerotic heart disease. 4. Other problems listed above. PLAN: The patient has been admitted. She will be covered currently with Rocephin, pending cultures. I am going to ask therapy to evaluate as she is going to likely need some sort of rehab this week if she does not on this admission. HELEN BARAJAS MD DR: NITIN/lazaro JOB#: [id number] / [id number]
--- NOTE | 2020-12-02 10:05 | NUR ---
Covid was collected and walked down to lab.
--- NOTE | 2020-12-02 10:43 | NUR ---
SW following. Discussed with RN, pt from home with , uses oxygen at home, cardiac diet. PT/OT recommending SNU. SW met with pt (no isolation precautions at the time). Pt is not 100% sold on the idea of going to SNU, but did agree to let SW fax the referral to [facility] whilst she decides. BILL faxed referral to [facility], awaiting acceptance decision. COVID swab taken this morning. Choice of vendor form completed. BILL will continue to follow.
[2020-12-02] MEDS ORDERED: guaiFENesin DM 600/30MG 1 TAB TAB.ER.12H PO PRN (10:45)
[2020-12-02 11:00] VITALS: BP 136/61
--- NOTE | 2020-12-02 14:35 | NUR ---
Unsuccessful IV attempt x 2.
[2020-12-02 15:00] VITALS: BP 134/65
[2020-12-02 19:00] VITALS: BP 125/67
[2020-12-02 23:10] VITALS: BP 126/61
[2020-12-03 03:01] VITALS: BP 134/66
[2020-12-03 07:00] VITALS: BP 139/57
[2020-12-03] MEDS: IPRATRPIUM/ALBUTEROL 0.5/2.5MG 3 ML NEBU. NEB SCH ×4 (08:21→20:46)
[2020-12-03] MEDS: BUDESONIDE 0.5 MG/2 ML NEBU. NEB SCH ×2 (08:21→20:46)
[2020-12-03] MEDS: ROFLUMILAST 500 MCG TABLET. PO SCH (08:58)
[2020-12-03] MEDS: SIMVASTATIN 20 MG TABLET PO SCH (08:58)
[2020-12-03] MEDS: OMEGA-3 FATTY ACIDS/FISH OIL 1,000 MG CAPSULE. PO SCH (08:58)
[2020-12-03] MEDS: POTASSIUM CHLORIDE 20 MEQ TABLET.ER. PO SCH (08:58)
[2020-12-03] MEDS: FUROSEMIDE 40 MG TABLET. PO SCH (08:58)
[2020-12-03] MEDS: FLUTICASONE 50MCG/NASAL SPRAY 16GM BOTTLE. NS SCH (08:58)
[2020-12-03] MEDS: predniSONE 20 MG TABLET PO SCH (08:59)
[2020-12-03] MEDS: HYDROcodone/APAP 5/325MG 1 TAB TABLET PO PRN (09:00)
[2020-12-03] MEDS: PANTOPRAZOLE 40 MG TABLET.DR. PO SCH (09:01)
[2020-12-03] MEDS: ASPIRIN ENTERIC COATED 81 MG TABLET.DR. PO SCH (09:01)
[2020-12-03] MEDS: LACTOBACILLUS RHAMNOSUS GG 1 CAPSULE. PO SCH (09:01)
[2020-12-03] MEDS: DIGOXIN 125 MCG TABLET. PO SCH (09:01)
[2020-12-03] MEDS: CETIRIZINE HCL 10 MG TABLET. PO SCH (09:01)
[2020-12-03] MEDS: cefTRIAXone IV Push 1 GM VIAL. IVP SCH (09:02)
[2020-12-03] MEDS: IV NORMAL SALINE 1000ML BAG 1,000 ML IV SCH ×2 (09:02→22:45)
--- NOTE | 2020-12-03 09:48 | PDOC ---
Provider Note Date of Service: DATE: 12/03/20 TIME: 09:43 Provider Note no temp, vs, pulse up- has uti on rocep, high wbc, cults pending- cont same for now, hold lasix on iv saline Justifications for Admission Other Justification TOM OCONNOR MD Dec 03, 2020 09:48
[2020-12-03 11:00] VITALS: BP 130/65
[2020-12-03 11:22] LABS: FREE T4 1.41 ng/dL (0.76-1.46)
[2020-12-03 15:00] VITALS: BP 121/61
[2020-12-03 19:15] VITALS: BP 129/40
[2020-12-03 22:52] VITALS: BP 131/51
[2020-12-04 02:54] VITALS: BP 137/53
[2020-12-04 07:00] VITALS: BP 148/66
[2020-12-04] MEDS: CETIRIZINE HCL 10 MG TABLET. PO SCH (08:13)
[2020-12-04] MEDS: OMEGA-3 FATTY ACIDS/FISH OIL 1,000 MG CAPSULE. PO SCH (08:13)
[2020-12-04] MEDS: FLUTICASONE 50MCG/NASAL SPRAY 16GM BOTTLE. NS SCH (08:13)
[2020-12-04] MEDS: ASPIRIN ENTERIC COATED 81 MG TABLET.DR. PO SCH (08:13)
[2020-12-04] MEDS: ROFLUMILAST 500 MCG TABLET. PO SCH (08:13)
[2020-12-04] MEDS: SIMVASTATIN 20 MG TABLET PO SCH (08:13)
[2020-12-04] MEDS: LACTOBACILLUS RHAMNOSUS GG 1 CAPSULE. PO SCH (08:13)
[2020-12-04] MEDS: predniSONE 20 MG TABLET PO SCH (08:14)
[2020-12-04] MEDS: cefTRIAXone IV Push 1 GM VIAL. IVP SCH (08:14)
[2020-12-04] MEDS: DIGOXIN 125 MCG TABLET. PO SCH (08:14)
[2020-12-04] MEDS: PANTOPRAZOLE 40 MG TABLET.DR. PO SCH (08:14)
[2020-12-04] MEDS: HYDROcodone/APAP 5/325MG 1 TAB TABLET PO PRN ×3 (08:15→23:05)
[2020-12-04] MEDS: BUDESONIDE 0.5 MG/2 ML NEBU. NEB SCH ×2 (08:24→20:18)
[2020-12-04] MEDS: IPRATRPIUM/ALBUTEROL 0.5/2.5MG 3 ML NEBU. NEB SCH ×4 (08:24→20:18)
--- NOTE | 2020-12-04 09:45 | PDOC ---
Provider Note Date of Service: DATE: 12/04/20 TIME: 09:41 Provider Note no temp, pulse 100 but no distress- tsh low but T4/3 ok, rest ok- cultures pending, cont rocephin for now- she is drinking and requests dc iv fluid, done Justifications for Admission Other Justification TOM OCONNOR MD Dec 04, 2020 09:45
[2020-12-04 11:00] VITALS: BP 134/62
[2020-12-04 15:00] VITALS: BP 130/68
[2020-12-04 19:35] VITALS: BP 129/55
[2020-12-04 23:52] VITALS: BP 139/58
[2020-12-05 03:31] VITALS: BP 140/68
[2020-12-05 07:00] VITALS: BP 98/74
[2020-12-05] MEDS: IPRATRPIUM/ALBUTEROL 0.5/2.5MG 3 ML NEBU. NEB SCH ×4 (07:30→19:48)
[2020-12-05] MEDS: BUDESONIDE 0.5 MG/2 ML NEBU. NEB SCH ×2 (07:30→19:49)
[2020-12-05] MEDS: PANTOPRAZOLE 40 MG TABLET.DR. PO SCH (07:44)
--- NOTE | 2020-12-05 08:09 | PN ---
DATE: 12/05/2020 LOCATION: She is in room 432. SUBJECTIVE: The patient is awake, alert, sitting in bed, taking a breathing treatment. Does feel like she is overall improved since admission, but still somewhat weak. She is eating a little bit better. Her major complaints this morning as her radicular pain in her left leg. OBJECTIVE: VITAL SIGNS: Stable. She is afebrile. CHEST: Reveals distant breath sounds, but clear. HEART: Slightly tachycardic. ABDOMEN: Benign. EXTREMITIES: Unremarkable. LABORATORY DATA: Cultures pending on urine from admission. IMPRESSION: 1. Weakness, anorexia, falls in the setting of leukocytosis and probable urinary tract infection. 2. Chronic obstructive pulmonary disease. 3. Atherosclerotic heart disease. PLAN: Continue rehabilitation. We will recheck a CBC in the morning. We will get penitentiary evaluation. She really wants to be home for the [employer], so I told her she is going to have to work very hard in a rehab type setting. HELEN BARAJAS MD DR: NITIN/lazaro JOB#: [id number] / [id number]
[2020-12-05] MEDS: DIGOXIN 125 MCG TABLET. PO SCH (08:19)
[2020-12-05] MEDS: ROFLUMILAST 500 MCG TABLET. PO SCH (08:37)
[2020-12-05] MEDS: LACTOBACILLUS RHAMNOSUS GG 1 CAPSULE. PO SCH (08:37)
[2020-12-05] MEDS: ASPIRIN ENTERIC COATED 81 MG TABLET.DR. PO SCH (08:37)
[2020-12-05] MEDS: OMEGA-3 FATTY ACIDS/FISH OIL 1,000 MG CAPSULE. PO SCH (08:37)
[2020-12-05] MEDS: predniSONE 20 MG TABLET PO SCH (08:37)
[2020-12-05] MEDS: CETIRIZINE HCL 10 MG TABLET. PO SCH (08:37)
[2020-12-05] MEDS: FLUTICASONE 50MCG/NASAL SPRAY 16GM BOTTLE. NS SCH (08:42)
[2020-12-05] MEDS: cefTRIAXone IV Push 1 GM VIAL. IVP SCH (08:43)
[2020-12-05] MEDS: SIMVASTATIN 20 MG TABLET PO SCH (08:49)
[2020-12-05 10:31] VITALS: BP 147/67
--- NOTE | 2020-12-05 12:06 | NUR ---
BILL following. Discussed with RN, per ELISABET Tubbs, Dr. Welsh is okay with discharge if the facility is one of three he mentioned. Pt is accepted at [facility] (on Dr. Welsh's list). SW notified Dr. Welsh. Awaiting confirmation of discharge, and discharge orders for SNF. BILL will continue to follow.
[2020-12-05 15:13] VITALS: BP 115/59
[2020-12-05 19:40] VITALS: BP 148/60
[2020-12-05] MEDS: HYDROcodone/APAP 5/325MG 1 TAB TABLET PO PRN (20:07)
[2020-12-05 23:17] VITALS: BP 147/67
[2020-12-06 03:05] VITALS: BP 168/92
[2020-12-06 07:15] VITALS: BP 147/83
[2020-12-06] MEDS: IPRATRPIUM/ALBUTEROL 0.5/2.5MG 3 ML NEBU. NEB SCH ×2 (08:10→12:00)
[2020-12-06] MEDS: BUDESONIDE 0.5 MG/2 ML NEBU. NEB SCH (08:11)
[2020-12-06] MEDS: predniSONE 20 MG TABLET PO SCH (08:48)
[2020-12-06] MEDS: CETIRIZINE HCL 10 MG TABLET. PO SCH (08:48)
[2020-12-06] MEDS: OMEGA-3 FATTY ACIDS/FISH OIL 1,000 MG CAPSULE. PO SCH (08:48)
[2020-12-06] MEDS: cefTRIAXone IV Push 1 GM VIAL. IVP SCH (08:48)
[2020-12-06] MEDS: PANTOPRAZOLE 40 MG TABLET.DR. PO SCH (08:49)
[2020-12-06] MEDS: ROFLUMILAST 500 MCG TABLET. PO SCH (08:49)
[2020-12-06] MEDS: FLUTICASONE 50MCG/NASAL SPRAY 16GM BOTTLE. NS SCH (08:49)
[2020-12-06] MEDS: LACTOBACILLUS RHAMNOSUS GG 1 CAPSULE. PO SCH (08:49)
[2020-12-06] MEDS: DIGOXIN 125 MCG TABLET. PO SCH (08:49)
[2020-12-06] MEDS: SIMVASTATIN 20 MG TABLET PO SCH (08:49)
[2020-12-06] MEDS: ASPIRIN ENTERIC COATED 81 MG TABLET.DR. PO SCH (08:49)
--- NOTE | 2020-12-06 09:31 | SNU/HH DC ---
DISCHARGE ORDERS DISCHARGE INFORMATION: DISCHARGE DATE: Dec 06, 2020 CONDITION ON DISCHARGE: Stable CODE STATUS: Code Status: Full LONG-TERM: SNF STAY <30 DAYS: Yes HOSPICE: HOSPICE: No HOSPICE EVAL & TREAT: No LTAC: ADMIT TO LTAC: No POST DISCHARGE ORDERS: ACTIVITY ORDERS: Bedrest today WEIGHT BEARING STATUS: As tolerated DIET AFTER DISCHARGE: Regular CHECKS AFTER DISCHARGE: CHECKS AFTER DISCHARGE: Check blood press - daily TREATMENT/EQUIPMENT ORDERS: ADAPTIVE EQUIPMENT NEEDED: None RESPIRATORY EQUIPMENT NEEDED: Oxygen Physical Therapy For: Evalulation/Treatment Occupational Therapy For: Evaluation/Treatment DISCHARGE MEDICATIONS: Home Meds Active Scripts Hydrocodone/Apap 5-325 (NORCO 5-325 TABLET) 1 Each Tablet, 1 TAB PO Q6-8HRS PRN for PAIN, #10 TAB Prov:ASAD HIDALGO INDUSTRIAL EDITOR 06/11/20 Potassium Chloride (KLOR-CON M20) 20 Meq Tab.er.prt, 20 MEQ PO DAILYWBKFT for diuretic therapy for 30 Days, #30 TAB.SR Prov:HELEN BARAJAS MD 03/16/20 Reported Medications Roflumilast (DALIRESP) 500 Mcg Tablet, 500 MCG PO DAILY for copd, TAB 11/30/20 Ibuprofen (ADVIL) 200 Mg Capsule, 200 MG PO PRN PRN for PAIN, CAP 08/23/20 Cartilage/Collagen/Bor/Hyalur (Joint Health Tablet) 1 Each Tablet, 1 EACH PO DAILY PRN for rx, TAB 08/23/20 Lactobacillus Acidophilus (PROBIOTIC) 1 Each Capsule, 1 CAP PO DAILY PRN for rx for 10 Days, #10 CAP 0 Refills 08/23/20 [place]-3 Fatty Acids/Fish Oil (FISH OIL 1,000 MG SOFTGEL) 1 Each Capsule, 1 CAP PO TID for supplement for 30 Days, #90 CAP 0 Refills WITH MEALS 07/06/20 Ipratropium/Albuterol Sulfate (COMBIVENT RESPIMAT INHAL) 4 Gm Aer.w.adap, 1 INH IH QID for wheezing, INHALER 03/10/20 Fluticasone Propionate (FLUTICASONE PROPIONATE NASAL SPRAY) 16 Gm [place].susp, 2 SPRAY NS DAILY for congestion, #1 INHALER 11 Refills 02/20/20 Pantoprazole Sodium (PANTOPRAZOLE SODIUM ) 40 Mg Tablet.dr, 40 MG PO DAILYAC for GERD, TAB 02/20/20 Diltiazem HCl (Diltiazem 24Hr ER (Xr)) 180 Mg Cap.er.deg, 180 MG PO DAILY for hypertension, CAP.SR 02/20/20 Digoxin (DIGOXIN) 125 Mcg Tablet, 125 MCG PO DAILY for AFIB/HEART FAILURE, TAB 02/20/20 Cetirizine Hcl (CETIRIZINE HCL) 10 Mg Tablet, 1 TAB PO DAILY for allergies, #30 TAB 5 Refills 02/20/20 Prednisone (PREDNISONE) 20 Mg Tablet, 10 MG PO DAILY for copd, TAB 02/20/20 Furosemide (FUROSEMIDE) 40 Mg Tablet, 1 TAB PO DAILY for hypertension, #30 TAB 5 Refills 02/20/20 Budesonide/Formoterol Fumarate (SYMBICORT 160-4.5 MCG INHALER) 10.2 Gm Hfa.aer.ad, 1 PUFF IH BID for sob, INHALER 12/11/19 Aspirin (ASPIR-LOW) 81 Mg Tablet.dr, 1 TAB PO DAILY for heart, #30 TAB 3 Refills 11/25/19 Ondansetron (ONDANSETRON ODT) 4 Mg Tab.rapdis, 4 MG PO BID PRN for NAUSEA/VOMITING, TAB 08/03/19 Simvastatin (SIMVASTATIN) 20 Mg Tablet, 20 MG PO DAILY for FOR CHOLESTEROL, #30 TAB 0 Refills 08/03/19 Guaifenesin/Dextromethorphan (MUCINEX DM ER 600-30 MG TABLET) 1 Each Tab.er.12h, 2 TAB PO PRN Q12HRS, #20 TAB 01/13/17 Zolpidem Tartrate (ZOLPIDEM TARTRATE) 10 Mg Tablet, 1 TAB PO QHS, #30 TAB 2 Refills 02/17/16 Discontinued Reported Medications Clopidogrel Bisulfate (CLOPIDOGREL) 75 Mg Tablet, 1 TAB PO DAILY for blood thinner, #90 TAB 1 Refill 08/23/20 HELEN BARAJAS MD Dec 06, 2020 09:31
[2020-12-06 09:37] LABS: BASO # 0.1 x10^3/uL (0.0-0.2); BASO % 0 % (0-3); EOS % 0 % (0-3); HEMATOCRIT 37.5 % (36.0-47.0); HEMOGLOBIN 11.9 g/dL (12.0-15.5); LYMPH # 2.6 x10^3/uL (1.0-4.8); LYMPH % 13 % (24-48); MEAN CORPUSCULAR HEMOGLOBIN 26 pg (25-35); MEAN CORPUSCULAR HGB CONC 32 g/dL (31-37); MEAN CORPUSCULAR VOLUME 84 fL (79-100); MONO % 5 % (0-9); NEUT % 82 % (31-73); PLATELET COUNT 389 x10^3/uL (140-400); RED BLOOD COUNT 4.49 x10^6/uL (3.50-5.40); RED CELL DISTRIBUTION WIDTH 20.6 % (11.5-14.5); WHITE BLOOD COUNT 20.7 x10^3/uL (4.0-11.0)
--- NOTE | 2020-12-06 09:54 | DS ---
DATE OF DISCHARGE: 12/06/2020 PRIMARY DIAGNOSIS: Dehydration. ADDITIONAL DIAGNOSES: Profound weakness, anorexia, falls, leukocytosis, severe chronic obstructive pulmonary disease, atherosclerotic heart disease. CHIEF COMPLAINT AND HISTORY OF PRESENT ILLNESS: This 75-year-old white female admitted on the day of admission because of progressively decreasing mobility, weakness, anorexia, couple of falls. She was found to have a marked leukocytosis on admission with a white count of 28,000 and evidence of likely urinary tract infection with no microbiology results available by the time of discharge, but had completed a 5-day course of Rocephin and was markedly improved on a daily basis, likely due to the treating of the urinary tract infection, her p.o. intake was improved. She was eating better, tolerating therapy, but still weak and felt necessary for senior living and this was accomplished on the day of dismissal. DISPOSITION: The patient is discharged to senior living. DIET: Regular diet. ACTIVITY: As tolerated. PT and OT will evaluate and treat. The med rec has been addressed for meds and is available. HELEN BARAJAS MD DR: NITIN/lazaro JOB#: [id number] / [id number]
[2020-12-06 10:58] VITALS: BP 113/80
--- NOTE | 2020-12-06 11:50 | NUR ---
Dr. baca for script of lortab to be faxed to [facility].
--- NOTE | 2020-12-06 11:52 | NUR ---
Patient discharged to [facility]. Report called. patient transported by transportation.
[2021-01-21] MEDS ORDERED: DILT240C33 PO (12:20)
[2021-01-21] MEDS ORDERED: CELE200C PO (12:20)
[2021-01-21] MEDS ORDERED: TIOT18CA IH (12:20)
[2021-01-21] MEDS ORDERED: VITA10003 PO (13:14)
[2021-01-21] MEDS ORDERED: GUAI-108 PO (13:14)
[2021-01-21] MEDS ORDERED: SIMV40TA18 PO (13:14)
[2021-01-21] MEDS ORDERED: CLOP75TA PO (13:14)
[2021-01-21] MEDS ORDERED: OMEG100021 PO (13:15)
[2021-01-21] MEDS ORDERED: ASPI-630 PO ×2 (13:15→13:20)
[2021-01-21] MEDS ORDERED: ROFL500T7 PO (13:27)
[2021-01-21] MEDS ORDERED: ZOLP5TAB5 PO (20:31)
[2021-01-21] MEDS ORDERED: OXYC10TA PO (22:58)
--- NOTE | 2021-03-03 15:18 | PDOC1 ---
History & Physical: Date of Service: DOS: 12-01-2020 H&P: PATIENT: DARRION MAYER ACCOUNT: [id number] : 1945 LOC: [address] [place] [address] AGE: 75 SEX: F STATUS: ADM IN LOCATION: [address] [place] [address] ADMIT DATE: 12/01/2020 CHIEF COMPLAINT AND HISTORY OF PRESENT ILLNESS: This 75-year-old white female was admitted from home on the day of admission because of progressively decreasing mobility, weakness, anorexia, couple of falls. She was felt to be unsafe at home and admitted for further evaluation of what was causing this change. 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 PAST MEDICAL HISTORY: Well documented on old charts, does include COPD, baseline tachycardia, hyperlipidemia, history of congestive heart failure and coronary artery disease. She has chronic low back pain with lumbar radiculopathy, which is improved with epidural steroids, but unable to get any for a period of time again. MEDICATIONS: Brought with the patient, listed on the computer and have been addressed. ALLERGIES: She has no known drug allergies. SOCIAL HISTORY: She continues to smoke on a daily basis despite her COPD and multiple issues. She does drink an occasional beer. Does not use drugs. , lives at home with her . FAMILY HISTORY: Noncontributory. REVIEW OF SYSTEMS: As mentioned above. PHYSICAL EXAMINATION: GENERAL: She is well-developed, well-nourished white female, appears ill. VITAL SIGNS: Remarkable primarily just for resting tachycardia in the 120 range. HEAD, EYES, EARS, NOSE AND THROAT: Shows O2 per nasal cannula, which is chronic. NECK: Supple without adenopathy or thyromegaly. CHEST: Reveals diffuse bilateral wheezes, inspiratory and expiratory. HEART: Sinus tachycardia without S3, S4 or murmur. ABDOMEN: Soft, nontender, without hepatosplenomegaly or masses. There is no CVA tenderness present. EXTREMITIES: Without cyanosis, clubbing, edema. NEUROLOGIC: She is intact. LABORATORY AND DIAGNOSTIC DATA: Initial laboratory show evidence of a probable urinary tract infection. Blood sugar is 125. Renal function is within normal limits. White count is 28,000 with a marked left shift. Chest x-ray shows bilateral perihilar and basilar opacities, likely pulmonary edema or multifocal infection, which is likely related to her recent COVID from which she has recovered. IMPRESSION: 1. Profound weakness with falls and anorexia in the setting of a marked leukocytosis and a probable urinary tract infection. 2. Chronic obstructive pulmonary disease. 3. Atherosclerotic heart disease. 4. Other problems listed above. PLAN: The patient has been admitted. She will be covered currently with Rocephin, pending cultures. I am going to ask therapy to evaluate as she is going to likely need some sort of rehab this week if she does not on this admission. HELEN Box. MD JENN DR: NITIN/lazaro JOB#: [id number] / [id number] DICTATED BY: HELEN BARAJAS MD 12/02/20 0806 SIGNED BY: HELEN BARAJAS MD 12/05/20 0727 cc: HELEN BARAJAS MD ~[id number] Page of HELEN BARAJAS MD Mar 03, 2021 15:18
== END 2020-12-06 11:45 | DRG 871 ==
LOC: 4 NORTH 14:28
PROVIDERS: ADMIT Family Medicine; ATTEND Family Medicine
DX: A41.9 Sepsis, unspecified organism (principal); E43 Unspecified severe protein-calorie malnutrition; N39.0 Urinary tract infection, site not specified; E78.5 Hyperlipidemia, unspecified; E86.0 Dehydration; I50.9 Heart failure, unspecified; J44.9 Chronic obstructive pulmonary disease, unspecified; G89.29 Other chronic pain; M54.16 Radiculopathy, lumbar region; Z20.822 Contact with and (suspected) exposure to COVID-19; I25.10 Atherosclerotic heart disease of native coronary artery without angina pectoris; F17.200 Nicotine dependence, unspecified, uncomplicated
CPT/HCPCS: 36415; 71045; 80053; 81001; 84439; 84443; 84481; 85007; 85025; 94640; 94760; J0696; J7030; J7512; U0003; 97110-GP; 97116-GP; 97530-GO; 97530-GP; 97535-GO; G0378; J7626

== ENCOUNTER 2021-02-06 16:02 | Inpatient (IN) | payer OTHER ==
[~2021-02-06] VITALS: Ht 152.4 cm; Wt 48.3 kg
[~2021-02-06 16:02] MED LIST changes: +CELE200C PO; +DILT240C33 PO; +OMEG100021 PO; +OXYC10TA PO; -SENN8.8S13 PO; +SENN8.8S5 PO; +TIOT18CA IH; +VITA10003 PO; +ZOLP5TAB5 PO
[2021-02-06] MEDS ORDERED: ZOLPIDEM 5 MG TABLET. PO PRN (16:45)
[2021-02-06] MEDS ORDERED: oxyCODONE IR 5 MG TABLET PO PRN (16:45)
[2021-02-06] MEDS ORDERED: ACETAMINOPHEN 325 MG TABLET. PO PRN (16:45)
[2021-02-06] MEDS ORDERED: guaiFENesin DM 600/30MG 1 TAB TAB.ER.12H PO PRN (16:45)
[2021-02-06] MEDS ORDERED: ONDANSETRON PF 4 MG/2 ML VIAL. IVP PRN (16:45)
[2021-02-06] MEDS ORDERED: ALBUTEROL SULFATE 2.5 MG/3 ML NEBU. NEB PRN (16:45)
[2021-02-06] MEDS: PIPERACILLIN/TAZOBACTAM 3.375 GM in IV NORMAL SALINE 50ML 50 ML IV SCH ×2 (18:00→23:49)
[2021-02-06] MEDS: MORPHINE SULFATE 20 MG/ML CONC SOLUTION. SL PRN (18:26)
--- NOTE | 2021-02-06 18:54 | NUR ---
Pt admitted to inpatient hospice. Family at bedside. Stable at this time. Morphine and scopolamine patch administered. Pt on 3L of O2 via [place]. Call light within reach.
[2021-02-06 19:25] VITALS: BP 125/77
[2021-02-06] MEDS: IPRATRPIUM/ALBUTEROL 0.5/2.5MG 3 ML NEBU. NEB SCH (20:16)
[2021-02-06] MEDS: BUDESONIDE 0.5 MG/2 ML NEBU. NEB SCH (20:16)
[2021-02-06] MEDS ORDERED: LACTOBACILLUS RHAMNOSUS GG 1 CAPSULE. PO SCH (21:00)
[2021-02-06] MEDS ORDERED: SACUBITRIL/VALSARTAN 24/26MG TABLET. PO SCH (21:00)
[2021-02-07] MEDS: MORPHINE SULFATE 20 MG/ML CONC SOLUTION. SL PRN ×4 (01:19→21:28)
--- NOTE | 2021-02-07 01:52 | PN ---
DATE: 02/06/2021 LOCATION: She is in room #248. SUBJECTIVE: The patient is a 75-year-old white female remains hospitalized with shortness of breath, exacerbation of COPD and a combination of acute diastolic congestive heart failure. She was much less lucid this morning, actually very not non-interactive. Appears short of breath even at rest. OBJECTIVE: VITAL SIGNS: Stable. She is afebrile. CHEST: Reveals a diffuse bronchospasm. HEART: Remains tachycardic with a rate of 120. She remains on 2 liters per nasal cannula O2. ABDOMEN: Benign. ASSESSMENT: 1. Acute respiratory failure due to exacerbation of COPD as well as diastolic heart failure. 2. Encephalopathy. PLAN: I have discussed with the patient's hospice and he is agreeable. He wishes me to speak to her children today, which will happen and likely we will make inpatient hospice later today. HELEN BARAJAS MD DR: NITIN/lazaro JOB#: [id number] / [id number]
[2021-02-07] MEDS: PIPERACILLIN/TAZOBACTAM 3.375 GM in IV NORMAL SALINE 50ML 50 ML IV SCH (06:00)
[2021-02-07] MEDS: PANTOPRAZOLE 40 MG TABLET.DR. PO SCH (07:30)
[2021-02-07] MEDS: BUDESONIDE 0.5 MG/2 ML NEBU. NEB SCH (07:47)
[2021-02-07] MEDS: IPRATRPIUM/ALBUTEROL 0.5/2.5MG 3 ML NEBU. NEB SCH ×4 (07:47→20:02)
[2021-02-07 08:00] VITALS: BP 150/65
[2021-02-07] MEDS: ASPIRIN CHEWABLE 81 MG TABLET. PO SCH (08:00)
[2021-02-07] MEDS ORDERED: POTASSIUM CHLORIDE 20 MEQ TABLET.ER. PO SCH (08:00)
[2021-02-07] MEDS: CLOPIDOGREL BISULFATE 75 MG TABLET PO SCH (08:00)
--- NOTE | 2021-02-07 08:20 | NUR ---
Pt daughter at bedside requesting to remove patients rings. Spoke with sons on the previous day and everyone decided that daughter would get patient's rings. Daughter removed and took three patient rings on the right hand. Pt daughter did not wish to take the left hand ring. The left hand ring was removed by request due to swelling, placed in a container and given to sons. Purse also given to sons.
[2021-02-07] MEDS ORDERED: SCOPOLAMINE 1.5MG PATCH. TD SCH (09:00)
[2021-02-07] MEDS: DIGOXIN 125 MCG TABLET. PO SCH (09:00)
[2021-02-07] MEDS: ROFLUMILAST 500 MCG TABLET. PO SCH (09:00)
[2021-02-07] MEDS: predniSONE 20 MG TABLET PO SCH (09:00)
[2021-02-07] MEDS ORDERED: FUROSEMIDE 40 MG TABLET. PO SCH (09:00)
--- NOTE | 2021-02-07 09:31 | PN ---
DATE: 02/07/2021 SUBJECTIVE: She is in room 248, currently on inpatient hospice for end-stage COPD and failure to respond to treatment during this admission. Daughter is present in the room and quite emotional. The patient is resting relatively comfortable with her oxygen in her mouth. OBJECTIVE: VITAL SIGNS: Stable. She is afebrile. O2 sats have been good at 2 liters. She remains obtunded, but maybe a little more awake this morning to response. CHEST: Reveals bilateral rhonchi with wheezes. HEART: Tachycardic, but only to about 100 this morning and regular. ABDOMEN: Benign. EXTREMITIES: No edema. IMPRESSION: 1. End-stage chronic obstructive pulmonary disease. 2. Diastolic heart failure. 3. Encephalopathy. PLAN: Continue palliative approach at this point in time with inpatient hospice. I am going to get rid of any of her unnecessary medicines at this point in time. HELEN BARAJAS MD DR: NITIN/lazaro JOB#: [id number] / [id number]
[2021-02-07 19:20] VITALS: BP 144/73
[2021-02-08] MEDS: IPRATRPIUM/ALBUTEROL 0.5/2.5MG 3 ML NEBU. NEB SCH ×4 (07:15→17:10)
[2021-02-08] MEDS: MORPHINE SULFATE 20 MG/ML CONC SOLUTION. SL PRN ×3 (07:22→17:49)
[2021-02-08] MEDS: PANTOPRAZOLE 40 MG TABLET.DR. PO SCH (07:30)
[2021-02-08 07:49] VITALS: BP 165/69
[2021-02-08] MEDS: CLOPIDOGREL BISULFATE 75 MG TABLET PO SCH (08:00)
[2021-02-08] MEDS: ASPIRIN CHEWABLE 81 MG TABLET. PO SCH (08:00)
[2021-02-08] MEDS: predniSONE 20 MG TABLET PO SCH (08:13)
[2021-02-08] MEDS: ROFLUMILAST 500 MCG TABLET. PO SCH (08:13)
[2021-02-08] MEDS: DIGOXIN 125 MCG TABLET. PO SCH (08:13)
--- NOTE | 2021-02-08 10:26 | PN ---
DATE: 02/08/2021 DAILY PROGRESS NOTE She is on hospice. LOCATION: She is in room 248. SUBJECTIVE: The patient remains obtunded, appears very comfortable, has just received morphine and Ativan per hospice nurse at bedside before my arrival. She is breathing very comfortably. She has had no p.o. intake now for a couple of days. OBJECTIVE: VITAL SIGNS: Stable. She is afebrile. CHEST: Reveals ongoing wheezing, but definitely not as much. HEART: Slightly tachycardic, regular. ABDOMEN: Benign. IMPRESSION: End-stage chronic obstructive pulmonary disease/diastolic heart failure, on hospice and comfort care ongoing. PLAN: Continue present care. She appears very comfortable. Family is all expecting her not to be here very much longer. HELEN BARAJAS MD DR: NITIN/lazaro JOB#: [id number] / [id number]
--- NOTE | 2021-02-08 19:42 | NUR ---
NOTE: Patient today at 1829. Patient's two sons and daughter at bedside. All patient belongings taken with patient's family. Called [facility] at approximately 1845. SCN #[id number]. Dr. Welsh called at approximately 1935, with return call at approximately 1950.
[2021-02-09] MEDS ORDERED: SCOPOLAMINE 1.5MG PATCH. TD SCH (09:00)
== END 2021-02-08 18:29 | DRG 291 ==
LOC: 2 SOUTH 16:02
PROVIDERS: ADMIT Family Medicine; ATTEND Family Medicine
DX: I50.31 Acute diastolic (congestive) heart failure (principal); J96.00 Acute respiratory failure, unspecified whether with hypoxia or hypercapnia; J44.1 Chronic obstructive pulmonary disease with (acute) exacerbation; G93.40 Encephalopathy, unspecified; Z51.5 Encounter for palliative care
CPT/HCPCS: 94640; 94760; J2060; G0378; J7626